=== PATIENT | male | born 1960 ===

== ENCOUNTER 2017-08-17 09:49 | Inpatient (IN) | payer MEDICAID ==
[2017-08-17 10:03] VITALS: BMI 22.6
[2017-08-17] MEDS ORDERED: Permethrin 5% CREAM TOP ONE (11:01)
--- NOTE | 2017-08-17 11:13 | ED PDOC ---
HPI: Seizure Time Seen by Provider: 08/17/17 10:06 Chief Complaint (Nursing): Seizure Chief Complaint (Provider): AMS, possible seizure History Per: Career Development Coordinator/Teacher (Darline #[id number]) History/Exam Limitations: clinical condition Recent Seizure Activity Began: Unknown Length Of Seizures (Duration): Unknown Post-ictal Period: Duration Unknown Additional Complaint(s): 56yo male per report EMS called by bystander for active seizure. When EMS arrived patient was awake and alert but confused. On arrival to ED, found to have insect infestation thus brought to [place]. When questioned via kettle fry cook operator remains confused, thinks may have had a seizure, but poor historian. Admits to history of HIV for last year, taking medications but unable to name his medications or his doctor. Denies headache, chest pain, fever or cough. Denies drug or alcohol abuse. Past Medical History Reviewed: Historical Data, Nursing Documentation, Vital Signs Vital Signs: Last Vital Signs Temp 98.2 F 08/20/17 08:25 Pulse 85 08/20/17 08:25 Resp 20 08/20/17 08:25 BP 106/68 08/20/17 08:25 Pulse Ox 94 L 08/20/17 08:25 - Medical History PMH: HIV Other PMH: limited as poor historian - Family History Family History: States: Unknown Family Hx - Living Arrangements Living Arrangements: Other (homeless) - Social History Current smoker - smoking cessation education provided: No - Home Medications Home Medications: Ambulatory Orders Medication Instructions Recorded Unobtainable 08/17/17 - Allergies Allergies/Adverse Reactions: Allergies Allergy/AdvReac Type Severity Reaction Status Date / Time No Known Allergies Allergy Verified 08/17/17 10:05 Review of Systems ROS Statement: Except As Marked, All Systems Reviewed And Found Negative Constitutional: Negative for: Fever, Chills Cardiovascular: Negative for: Chest Pain, Palpitations Gastrointestinal: Negative for: Nausea, Vomiting, Abdominal Pain Genitourinary Male: Negative for: Dysuria, Frequency Neurological: Positive for: Seizures, Dizziness. Negative for: Weakness, Numbness Physical Exam - Reviewed Nursing Documentation Reviewed: Yes Vital Signs Reviewed: Yes - Physical Exam Appears: Positive for: Non-toxic (speech fluent without dysarthria but confused and poor historian, no AOB, calm), No Acute Distress Head Exam: Positive for: ATRAUMATIC, NORMAL INSPECTION, NORMOCEPHALIC Skin: Positive for: Normal Color, Warm, DRY Eye Exam: Positive for: EOMI, Normal appearance, PERRL ENT: Positive for: Normal ENT Inspection, Other (neg thrush) Neck: Positive for: Normal, Painless ROM Cardiovascular/Chest: Positive for: Regular Rate, Rhythm Respiratory: Positive for: CNT, Normal Breath Sounds Gastrointestinal/Abdominal: Positive for: Bowel Sounds, Soft. Negative for: Tenderness, Guarding Male Genital Exam: Positive for: normal genitalia Back: Positive for: Normal Inspection Extremity: Positive for: Normal ROM. Negative for: Tenderness, Deformity, Swelling Neurologic/Psych: Positive for: Alert, log brander II-XII (no facial assymetry), Mood/ Affect (anxious and confused). Negative for: Oriented (confused), Motor/ Sensory Deficits, Aphasia, Facial Droop - Laboratory Results Result Diagrams: 08/19/17 05:50 08/19/17 05:50 Medical Decision Making Medical Decision Making: workup initiated for AMS in setting of possible seizure with admitted history of HIV. labs reviewed, etoh neg trop neg mild elev CK Urine drug screen neg CT brain Accession No. : [id number] Patient Name / ID : KATHRYN CASANOVA / [id number] Exam Date : 08/17/2017 12:27:55 ( Approved ) Study Comment : Sex / Age : M / 56Y Creator : Laila Arguelles MD Dictator : Laila Arguelles MD Filler Shredding Machine Loader : Residential Interior Designer : Laila Arguelles MD Approver2 : Report Date : 08/17/2017 12:58:21 My Comment : PROCEDURE: CT HEAD WITHOUT CONTRAST. HISTORY: hx HIV, now AMS COMPARISON: None available. TECHNIQUE: Axial computed tomography images were obtained through the head/brain without intravenous contrast. Radiation dose: Total exam DLP = 873.53 MGy-cm. This CT exam was performed using one or more of the following dose reduction techniques: Automated exposure control, adjustment of the mA and/or kV according to patient size, and/or use of iterative reconstruction technique. FINDINGS: HEMORRHAGE: No intracranial hemorrhage. BRAIN: Pitts-white matter differentiation is preserved. 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 There are numerous scattered calcifications in both cerebral hemispheres, the largest in the right anterior frontal low, sequela of remote infection. VENTRICLES: There is moderate hydrocephalus with dilatation of the lateral and 3rd ventricle. The 4th ventricle is normal in size. CALVARIUM: The skull base and calvarium are normal. PARANASAL SINUSES: Predominantly clear. MASTOID AIR CELLS: The mastoid air cells are underdeveloped. There is cerumen in the left external auditory canal. OTHER FINDINGS: None. IMPRESSION: 1. Moderate hydrocephalus with dilatation of the lateral and 3rd ventricles and normal size of the 4th ventricle. 2. Numerous scattered calcifications in both hemispheres, a sequela of remote infection. 3. 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 Patient re-evaluated 120pm via kettle fry cook operator #[id number], remains confused, initially thought he was in [place], then said "[place]", stated hasnt had a seizure in awhile then told kettle fry cook operator had a seizure 8days ago. Patient states memory has recently worsened and he desires to return to [place] to see his sister. States he lives in a building under construction and gets food at a local pen[facility]. He arrived with insect infestation, belongings have been isolated and unable to obtain medication list or further collateral history at this time. Admit Obs to hospitalist for neuro eval. Patient denies headache, he's afebrile without meningitic signs, given CT findings may require further testing. Disposition - Clinical Impression Clinical Impression: HIV (human immunodeficiency virus infection), Seizure, Altered mental status - Patient ED Disposition Is Patient to be Admitted: Yes Counseled Patient/Family Regarding: Studies Performed - Disposition Disposition Time: 13:01 (admit hospitalist) Condition: GUARDED
[2017-08-17 11:47] LABS: BASO # 0.1 K/uL (0.0-0.2); BASO % 1.5 % (0.0-2.0); EOS # 0.1 K/uL (0.0-0.7); EOS % 2.6 % (0.0-4.0); HEMATOCRIT 38.4 % (35.0-51.0); LYMPH # 1.3 K/uL (1.0-4.3); LYMPH % 32.3 % (20.0-40.0); MEAN CELL VOLUME 96.1 fl (80.0-94.0); MEAN CORPUSCULAR HEMOGLOBIN 32.2 pg (27.0-31.0); MEAN CORPUSCULAR HGB CONC 33.5 g/dL (33.0-37.0); MEAN PLATELET VOLUME 9.4 fl (7.2-11.7); MONO # 0.4 K/uL (0.0-0.8); MONO % 10.3 % (0.0-10.0); NEUT # 2.2 K/uL (1.8-7.0); NEUT % 53.3 % (50.0-75.0); NRBC % 0.2 % (0.0-0.0); RED CELL DISTRIBUTION WIDTH 12.2 % (11.5-14.5); WHITE BLOOD COUNT 4.1 K/uL (4.8-10.8)
[2017-08-17 11:48] LABS: ALB/GLOB RATIO 1.2 (1.0-2.1); ALCOHOL SERUM < 10 mg/dl (0-10); ALKALINE PHOSPHATASE 64 U/L (38-126); ALT/SGPT 46 U/L (21-72); AST/SGOT 49 U/L (17-59); BILIRUBIN,TOTAL 0.4 mg/dl (0.2-1.3); BLOOD UREA NITROGEN 12 mg/dl (9-20); CALCIUM 8.9 mg/dL (8.4-10.2); CARBON DIOXIDE 29 mmol/L (22-30); CHLORIDE 104 mmol/L (98-107); GFR AFRICAN-AMERICAN > 60; GLUCOSE,RANDOM 101 mg/dL (75-110); POTASSIUM 3.8 MMOL/L (3.6-5.0); SODIUM 143 mmol/l (132-148); TOTAL PROTEIN 7.3 G/DL (6.3-8.2)
--- NOTE | 2017-08-17 13:00 | CT ---
PROCEDURE: CT HEAD WITHOUT CONTRAST. HISTORY: hx HIV, now AMS COMPARISON: None available. TECHNIQUE: Axial computed tomography images were obtained through the head/brain without intravenous contrast. Radiation dose: Total exam DLP = 873.53 MGy-cm. This CT exam was performed using one or more of the following dose reduction techniques: Automated exposure control, adjustment of the mA and/or kV according to patient size, and/or use of iterative reconstruction technique. FINDINGS: HEMORRHAGE: No intracranial hemorrhage. BRAIN: Pitts-white matter differentiation is preserved. 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 There are numerous scattered calcifications in both cerebral hemispheres, the largest in the right anterior frontal low, sequela of remote infection. VENTRICLES: There is moderate hydrocephalus with dilatation of the lateral and 3rd ventricle. The 4th ventricle is normal in size. CALVARIUM: The skull base and calvarium are normal. PARANASAL SINUSES: Predominantly clear. MASTOID AIR CELLS: The mastoid air cells are underdeveloped. There is cerumen in the left external auditory canal. OTHER FINDINGS: None. IMPRESSION: 1. Moderate hydrocephalus with dilatation of the lateral and 3rd ventricles and normal size of the 4th ventricle. 2. Numerous scattered calcifications in both hemispheres, a sequela of remote infection. 3. 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
--- NOTE | 2017-08-17 13:59 | RAD ---
HISTORY: hx HIV COMPARISON: No prior. FINDINGS: LUNGS: The lungs are well inflated and clear. PLEURA: No significant pleural effusion identified, no pneumothorax apparent. CARDIOVASCULAR: Normal. OSSEOUS STRUCTURES: No significant abnormalities. VISUALIZED UPPER ABDOMEN: Normal. OTHER FINDINGS: None. IMPRESSION: No active pulmonary disease.
--- NOTE | 2017-08-17 14:55 | CP.PCM.HP ---
History of Present Illness - History of Present Illness History of Present Illness: This is a 56 year old male with past medical history of HIV for which he has been taking Triumeq up until about 3 months ago when he moved from the [facility] to [place], [place]. He states that he is homeless and has been unable to acquire his HIV medication and has been off it since his move. The patient is a poor historian otherwise and unable to give further information due to altered mental status. The patient was seen by a bystander to have a seizure and EMS was called and the patient was brought to the ED. There was no further witnessed seizure activity. In the ED, the patient's vitals remained stable. LDH and CPK was found to be elevated. CT scan of the brain showed evidence of hydrocephalus with extensive calcifications consitent with old infection. Dr. Osorio was consulted for neurology and Dr. Her was consulted for ID, given his history of HIV. The patient is to be admitted for further workup and management. Present on Admission - Present on Admission Any Indicators Present on Admission: No Review of Systems - Review of Systems Systems not reviewed;Unavailable: Altered Mental Status Past Patient History - Tetanus Immunizations Tetanus Immunization: Unknown - Past Social History Smoking Status: Unknown If Ever Smoked Drugs: Denies - HEMATOLOGICAL/ONCOLOGICAL Hx Human Immunodeficiency Virus (HIV): Yes - PSYCHIATRIC Hx Substance Use: No - SURGICAL HISTORY Hx Surgeries: No - ANESTHESIA Hx Anesthesia: No Meds Allergies/Adverse Reactions: Allergies Allergy/AdvReac Type Severity Reaction Status Date / Time No Known Allergies Allergy Verified 08/17/17 10:05 Physical Exam - Additional Findings Additional findings: Physical exam: Constitutional- Patient is unkempt, confused, although he is awake and alert. Cooperative. Head- NCAT, PERRL Eye- PERRL, normal accommodation ENT- normal exam, MMM. Neck- normal inspection, supple, no JVD Respiratory- CTAB, no wheezes rales rhonchi Cardiovascular- RRR, +S1, +S2 no MRG GI/Abdominal- normal bowel sounds, soft, no mass, no hsm Skin- warm, dry. Multiple insect bites Extremities Exam- normal capillary refill, normal inspection Neurological Exam- alert, stable gait Psych- flat affect, normal mood Results - Vital Signs Recent Vital Signs: Last Vital Signs Temp 97.7 F 08/17/17 10:36 Pulse Resp BP 123/73 08/17/17 10:36 Pulse Ox - Labs Result Diagrams: 08/17/17 11:30 08/17/17 11:30 Labs: Laboratory Results - last 24 hr 08/17/17 08/17/17 08/17/17 11:30 11:30 11:30 WBC 4.1 L RBC 3.99 L Hgb 12.9 Hct 38.4 MCV 96.1 H MCH 32.2 H MCHC 33.5 RDW 12.2 Plt Count 135 MPV 9.4 Neut % (Auto) 53.3 Lymph % (Auto) 32.3 [place] % (Auto) 10.3 H Eos % (Auto) 2.6 Baso % (Auto) 1.5 Neut # 2.2 Lymph # 1.3 [place] # 0.4 Eos # 0.1 Baso # 0.1 Sodium 143 Potassium 3.8 Chloride 104 Carbon Dioxide 29 Anion Gap 13 BUN 12 Creatinine 0.9 Est GFR ( Amer) > 60 Est GFR (Non-Af Amer) > 60 Random Glucose 101 Calcium 8.9 Total Bilirubin 0.4 AST 49 ALT 46 Alkaline Phosphatase 64 Lactate Dehydrogenase 843 H Total Creatine Kinase 204 H Troponin I < 0.0120 Total Protein 7.3 Albumin 3.9 Globulin 3.4 Albumin/Globulin Ratio 1.2 Urine Opiates Screen Negative Urine Methadone Screen Negative Ur Barbiturates Screen Negative Ur Phencyclidine Scrn Negative Ur Amphetamines Screen Negative U Benzodiazepines Scrn Negative U Oth Cocaine Metabols Negative U Cannabinoids Screen Negative Alcohol, Quantitative < 10 Assessment & Plan - Assessment and Plan (Free Text) Plan: ASSESSMENT - Seizure activity with known history of HIV - Altered mental status- likely post ictal - Evidence of hydrocephalus on CT scan - Homeless - Elevated LDH and CPK likely due to seizure activity PLAN - Admit to med/surg - Consultation with Dr. Osorio- recommends MRI w/ and w/out contrast of the brain , EEG, Procalcitonin, other labs pending - Consultation with Dr. Her for HIV workup - CD4 and CD8 count pending - Seizure precautions - Keppra 500 mg po BID for seizure prophylaxis as per neurology - DVT prophylaxis with Heparin SQ - regular diet - Estimated LOS > 2 midnights
[2017-08-17] MEDS: Sodium Chloride 0.9% 1,000 ML IV SCH (15:26)
--- NOTE | 2017-08-17 16:32 | CARD ---
APPROVED REPORT EKG Measurement Heart [id number] <Conclusion> Normal sinus rhythm Normal ECG
[2017-08-18] MEDS: Sodium Chloride 0.9% 1,000 ML IV SCH ×3 (04:09→19:25)
[2017-08-18 05:20] LABS: BLOOD UREA NITROGEN 10 mg/dl (9-20); CALCIUM 8.2 mg/dL (8.4-10.2); CARBON DIOXIDE 27 mmol/L (22-30); CHLORIDE 108 mmol/L (98-107); GFR AFRICAN-AMERICAN > 60; GLUCOSE,RANDOM 95 mg/dL (75-110); HEMATOCRIT 35.4 % (35.0-51.0); MEAN CORPUSCULAR HEMOGLOBIN 31.9 pg (27.0-31.0); MEAN CORPUSCULAR HGB CONC 33.3 g/dL (33.0-37.0); POTASSIUM 3.4 MMOL/L (3.6-5.0); RED CELL DISTRIBUTION WIDTH 12.6 % (11.5-14.5); SODIUM 142 mmol/l (132-148); WHITE BLOOD COUNT 3.7 K/uL (4.8-10.8)
[2017-08-18 05:27] LABS: MAGNESIUM 1.9 MG/DL (1.6-2.3); PHOSPHOROUS 2.6 mg/dl (2.5-4.5)
--- NOTE | 2017-08-18 10:08 | CP.PCM.CON ---
History of Present Illness - History of Present Illness History of Present Illness: Infectious Disease Consult Note- asked to see this patient at the request of the hospitalist for HIV and calcifications seen on brain CT. HPI- History obtained mostly from the medical chart and the hospitalist and some from the patient as patient is not a good historian. Patient is a 56 year old male with pmh of HIV , who was apparently seen by a bystander to have seizure and ems was called and [place] to ED here. There was no further witnessed seizure activity here. Pt. had brain CT on admission and was read as hydrocephalus with extensive calcifications c/w ? old infection. Pt. states as on Triumeq up until a month ago when he moved her to [place] , he as living in [place] prior to that . He does not know his last CD4 or VL count. He states he thinks he has had seizures in past as well. He states he has been living in for past 10 years but is originally from [facility]. He denies any h/o parasitic infection. Denies any h/o exposure to TB. He denies any fever or chills, denies any BARRETO, denies any change in vision. Review of Systems - Review of Systems Review of Systems: ROS- denies any fever or chills, denies any BARRETO, denies any vision change, does not remember the seizure activity, denies any nausea or vomiting, denies any cough or sob, denies anyc hest pain, denies any abd. pain, denies any dysurea, denies any diarrhea denies any night sweats, denies any hemoptysis denies any neck pain denies any recent travel other than coming from [place] to [place] Past Patient History - Tetanus Immunizations Tetanus Immunization: Unknown - Past Medical History & Family History Past Medical History?: Yes - Past Social History Smoking Status: Unknown If Ever Smoked Home Situation {Lives}: Homeless - CARDIAC Hx Cardiac Disorders: No - PULMONARY Hx Respiratory Disorders: No - HEENT Hx HEENT Problems: No - RENAL Hx Chronic Kidney Disease: No - ENDOCRINE/METABOLIC Hx Endocrine Disorders: No - HEMATOLOGICAL/ONCOLOGICAL Hx Blood Disorders: Yes Hx Human Immunodeficiency Virus (HIV): Yes - MUSCULOSKELETAL/RHEUMATOLOGICAL Hx Falls: Yes - PSYCHIATRIC Hx Substance Use: No - SURGICAL HISTORY Hx Surgeries: No - ANESTHESIA Hx Anesthesia: No Meds Allergies/Adverse Reactions: Allergies Allergy/AdvReac Type Severity Reaction Status Date / Time No Known Allergies Allergy Verified 08/17/17 10:05 - Medications Medications: Current Medications Acetaminophen (Tylenol 325mg Tab) 650 mg PO Q6 PRN PRN Reason: Pain, Mild (1-3) Heparin Sodium (Porcine) (Heparin) 5,000 units SC Q12 MOR PRN Reason: Protocol Last Admin: 08/17/17 21:48 Dose: 5,000 units Sodium Chloride (Sodium Chloride 0.9%) 1,000 mls @ 100 mls/hr IV .Q10H [facility] Last Admin: 08/18/17 04:09 Dose: 100 mls/hr Levetiracetam (Keppra) 500 mg PO BID [facility] Last Admin: 08/17/17 17:46 Dose: 500 mg Physical Exam - Constitutional Appears: No Acute Distress - Head Exam Head Exam: ATRAUMATIC - Eye Exam Eye Exam: EOMI, PERRL - Neck Exam Neck exam: Positive for: Full Rom Additional comments: supple no meningeal signs - Respiratory Exam Respiratory Exam: Clear to Auscultation Bilateral, NORMAL BREATHING PATTERN - Cardiovascular Exam Cardiovascular Exam: RRR, +S1, +S2 - GI/Abdominal Exam GI & Abdominal Exam: Normal Bowel Sounds, Soft Additional comments: NT, ND - Extremities Exam Extremities exam: Positive for: normal inspection - Neurological Exam Additional comments: awake slightly drowsy but is oriented to place and time Results - Vital Signs Recent Vital Signs: Last Vital Signs Temp 98.1 F 08/18/17 08:46 Pulse 90 08/18/17 08:46 Resp 20 08/18/17 08:46 BP 116/71 08/18/17 08:46 Pulse Ox 96 08/18/17 08:46 - Labs Result Diagrams: 08/18/17 04:05 08/18/17 04:05 Labs: Laboratory Results - last 24 hr 08/17/17 08/17/17 08/17/17 11:30 11:30 11:30 WBC 4.1 L RBC 3.99 L Hgb 12.9 Hct 38.4 MCV 96.1 H MCH 32.2 H MCHC 33.5 RDW 12.2 Plt Count 135 MPV 9.4 Neut % (Auto) 53.3 Lymph % (Auto) 32.3 [place] % (Auto) 10.3 H Eos % (Auto) 2.6 Baso % (Auto) 1.5 Neut # 2.2 Lymph # 1.3 [place] # 0.4 Eos # 0.1 Baso # 0.1 Sodium 143 Potassium 3.8 Chloride 104 Carbon Dioxide 29 Anion Gap 13 BUN 12 Creatinine 0.9 Est GFR ( Amer) > 60 Est GFR (Non-Af Amer) > 60 Random Glucose 101 Calcium 8.9 Phosphorus 2.6 Magnesium 1.9 Total Bilirubin 0.4 AST 49 ALT 46 Alkaline Phosphatase 64 Lactate Dehydrogenase 843 H Total Creatine Kinase 204 H Troponin I < 0.0120 Total Protein 7.3 Albumin 3.9 Globulin 3.4 Albumin/Globulin Ratio 1.2 Urine Opiates Screen Negative Urine Methadone Screen Negative Ur Barbiturates Screen Negative Ur Phencyclidine Scrn Negative Ur Amphetamines Screen Negative U Benzodiazepines Scrn Negative U Oth Cocaine Metabols Negative U Cannabinoids Screen Negative Alcohol, Quantitative < 10 HIV-1 Ab Rapid Screen 08/17/17 08/18/17 08/18/17 16:29 04:05 04:05 WBC 3.7 L RBC 3.69 L Hgb 11.8 L Hct 35.4 MCV 96.0 H MCH 31.9 H MCHC 33.3 RDW 12.6 Plt Count 131 MPV Neut % (Auto) Lymph % (Auto) [place] % (Auto) Eos % (Auto) Baso % (Auto) Neut # Lymph # [place] # Eos # Baso # Sodium 142 Potassium 3.4 L Chloride 108 H Carbon Dioxide 27 Anion Gap 10 BUN 10 Creatinine 1.0 Est GFR ( Amer) > 60 Est GFR (Non-Af Amer) > 60 Random Glucose 95 Calcium 8.2 L Phosphorus Magnesium Total Bilirubin AST ALT Alkaline Phosphatase Lactate Dehydrogenase Total Creatine Kinase Troponin I Total Protein Albumin Globulin Albumin/Globulin Ratio Urine Opiates Screen Urine Methadone Screen Ur Barbiturates Screen Ur Phencyclidine Scrn Ur Amphetamines Screen U Benzodiazepines Scrn U Oth Cocaine Metabols U Cannabinoids Screen Alcohol, Quantitative HIV-1 Ab Rapid Screen Reactive H Laboratory Results - last 72 hr 08/17/17 08/17/17 08/17/17 11:30 11:30 11:30 WBC 4.1 L RBC 3.99 L Hgb 12.9 Hct 38.4 MCV 96.1 H MCH 32.2 H MCHC 33.5 RDW 12.2 Plt Count 135 MPV 9.4 Neut % (Auto) 53.3 Lymph % (Auto) 32.3 [place] % (Auto) 10.3 H Eos % (Auto) 2.6 Baso % (Auto) 1.5 Neut # 2.2 Lymph # 1.3 [place] # 0.4 Eos # 0.1 Baso # 0.1 Sodium 143 Potassium 3.8 Chloride 104 Carbon Dioxide 29 Anion Gap 13 BUN 12 Creatinine 0.9 Est GFR ( Amer) > 60 Est GFR (Non-Af Amer) > 60 Random Glucose 101 Calcium 8.9 Phosphorus 2.6 Magnesium 1.9 Total Bilirubin 0.4 AST 49 ALT 46 Alkaline Phosphatase 64 Lactate Dehydrogenase 843 H Total Creatine Kinase 204 H Troponin I < 0.0120 Total Protein 7.3 Albumin 3.9 Globulin 3.4 Albumin/Globulin Ratio 1.2 Urine Opiates Screen Negative Urine Methadone Screen Negative Ur Barbiturates Screen Negative Ur Phencyclidine Scrn Negative Ur Amphetamines Screen Negative U Benzodiazepines Scrn Negative U Oth Cocaine Metabols Negative U Cannabinoids Screen Negative Alcohol, Quantitative < 10 HIV-1 Ab Rapid Screen 08/17/17 08/18/17 08/18/17 16:29 04:05 04:05 WBC 3.7 L RBC 3.69 L Hgb 11.8 L Hct 35.4 MCV 96.0 H MCH 31.9 H MCHC 33.3 RDW 12.6 Plt Count 131 MPV Neut % (Auto) Lymph % (Auto) [place] % (Auto) Eos % (Auto) Baso % (Auto) Neut # Lymph # [place] # Eos # Baso # Sodium 142 Potassium 3.4 L Chloride 108 H Carbon Dioxide 27 Anion Gap 10 BUN 10 Creatinine 1.0 Est GFR ( Amer) > 60 Est GFR (Non-Af Amer) > 60 Random Glucose 95 Calcium 8.2 L Phosphorus Magnesium Total Bilirubin AST ALT Alkaline Phosphatase Lactate Dehydrogenase Total Creatine Kinase Troponin I Total Protein Albumin Globulin Albumin/Globulin Ratio Urine Opiates Screen Urine Methadone Screen Ur Barbiturates Screen Ur Phencyclidine Scrn Ur Amphetamines Screen U Benzodiazepines Scrn U Oth Cocaine Metabols U Cannabinoids Screen Alcohol, Quantitative HIV-1 Ab Rapid Screen Reactive H Accession No. : [id number] Patient Name / ID : KATHRYN CASANOVA / [id number] Exam Date : 08/17/2017 12:27:55 ( Approved ) Study Comment : Sex / Age : M / 56Y Creator : Laila Arguelles MD Dictator : Laila Arguelles MD Web Production Artist : Funeral Service Practitioner/Embalmer : Laila Arguelles MD Approver2 : Report Date : 08/17/2017 12:58:21 My Comment : PROCEDURE: CT HEAD WITHOUT CONTRAST. HISTORY: hx HIV, now AMS COMPARISON: None available. TECHNIQUE: Axial computed tomography images were obtained through the head/brain without intravenous contrast. Radiation dose: Total exam DLP = 873.53 MGy-cm. This CT exam was performed using one or more of the following dose reduction techniques: Automated exposure control, adjustment of the mA and/or kV according to patient size, and/or use of iterative reconstruction technique. FINDINGS: HEMORRHAGE: No intracranial hemorrhage. BRAIN: Pitts-white matter differentiation is preserved. 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 There are numerous scattered calcifications in both cerebral hemispheres, the largest in the right anterior frontal low, sequela of remote infection. VENTRICLES: There is moderate hydrocephalus with dilatation of the lateral and 3rd ventricle. The 4th ventricle is normal in size. CALVARIUM: The skull base and calvarium are normal. PARANASAL SINUSES: Predominantly clear. MASTOID AIR CELLS: The mastoid air cells are underdeveloped. There is cerumen in the left external auditory canal. OTHER FINDINGS: None. IMPRESSION: 1. Moderate hydrocephalus with dilatation of the lateral and 3rd ventricles and normal size of the 4th ventricle. 2. Numerous scattered calcifications in both hemispheres, a sequela of remote infection. 3. 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 Assessment & Plan (1) HIV (human immunodeficiency virus infection) Status: Acute (2) Seizure Status: Acute (3) Brain parenchymal calcification Status: Acute - Assessment and Plan (Free Text) Assessment: A/P- 56 year old male with HIV (unknown cd4 and VL) admitted with ? seizure like activity and found to have on brain CT- hydrocephalus and multiple remote calcifications scattered adn as per radiologist most likely sequela of remote infection. pt. currently afebrile and in NAD. no leukocytosis. no meningeal signs the scattered calcifications in brain most likely are old. in light of the fact [place] Neurocysticercosis is a possibility, however, if the lesions are old and calcified no need froa ny antiparasitic therpay and should be on antiseizure meds to control the seizure activity. plan- check HIV Vl and CD4. check Tenia solium serology. check toxo IGG ( although the lesions are not c/w toxo brain lesions). check CMV. check RPR. Neurology evaluation and seizure management . he may need MRI of the brain as well. Thank you fro allowing me to take part in the care of this patient.
[2017-08-18] MEDS ORDERED: Potassium Chloride 20 mEq ER Tab PO ONE (11:52)
--- NOTE | 2017-08-18 14:16 | CP.PCM.PN ---
Subjective - Date & Time of Evaluation Date of Evaluation: 08/18/17 Time of Evaluation: 13:00 - Subjective Subjective: Pt has no fever he is now alert , oriented to person and place no further seizure in the hospital he gives a history of previous seizure he states that he was taking HAART up until he came to [place] from [place] a few wks ago denies CP no SOB no BARRETO no dizziness no abd pain soft stool this am Was treated for Scabies with Permethrin in the ED Objective - Vital Signs/Intake and Output Vital Signs (last 24 hours): Temp Pulse Resp BP Pulse Ox 98.1 F 90 20 116/71 96 08/18/17 08:46 08/18/17 08:46 08/18/17 08:46 08/18/17 08:46 08/18/17 08:46 - Medications Medications: Current Medications Acetaminophen (Tylenol 325mg Tab) 650 mg PO Q6 PRN PRN Reason: Pain, Mild (1-3) Heparin Sodium (Porcine) (Heparin) 5,000 units SC Q12 MOR PRN Reason: Protocol Last Admin: 08/18/17 10:34 Dose: 5,000 units Sodium Chloride (Sodium Chloride 0.9%) 1,000 mls @ 100 mls/hr IV .Q10H [facility] Last Admin: 08/18/17 10:51 Dose: Not Given Levetiracetam (Keppra) 500 mg PO BID [facility] Last Admin: 08/18/17 10:34 Dose: 500 mg - Labs Labs: 08/18/17 04:05 08/18/17 04:05 - Constitutional Appears: No Acute Distress, Unkempt, Chronically Ill - Head Exam Head Exam: NORMAL INSPECTION, NORMOCEPHALIC - Eye Exam Eye Exam: EOMI, Normal appearance Pupil Exam: NORMAL ACCOMODATION - ENT Exam ENT Exam: Mucous Membranes Moist, Normal External Ear Exam - Neck Exam Neck Exam: Full ROM. absent: Meningismus - Respiratory Exam Respiratory Exam: Rhonchi, NORMAL BREATHING PATTERN. absent: Respiratory Distress - Cardiovascular Exam Cardiovascular Exam: REGULAR RHYTHM, +S1, +S2 - GI/Abdominal Exam GI & Abdominal Exam: Soft, Normal Bowel Sounds. absent: Tenderness - Extremities Exam Extremities Exam: Full ROM, Normal Capillary Refill. absent: Calf Tenderness, Pedal Edema - Back Exam Back Exam: Full ROM. absent: CVA tenderness (L), CVA tenderness (R), paraspinal tenderness, vertebral tenderness - Neurological Exam Neurological Exam: Alert, Awake Neuro motor strength exam: Left Upper Extremity: 5, Right Upper Extremity: 5, Left Lower Extremity: 5, Right Lower Extremity: 5 Additional comments: oriented to person and place - Psychiatric Exam Psychiatric exam: Flat Affect - Skin Skin Exam: Dry, Normal Color, Rash, Warm Assessment and Plan (1) Seizure Status: Acute (2) Hydrocephalus Status: Acute (3) Brain parenchymal calcification Status: Acute (4) HIV (human immunodeficiency virus infection) Status: Chronic (5) Scabies Status: Acute (6) DVT prophylaxis Status: Acute - Assessment and Plan (Free Text) Assessment: 56 y/o gent HIV + , was on HAART up until about a few wks ago when moved from [place] to [place], was brought in by EMS after he was witnessed to have a seizure. Denies ETOH nor drug abuse. Homeless at present. (1) Seizure Status: Acute CT of head Hydrcephalus, multiple calcifications Neurology consulted- Dr Osorio- rec MRI Pt started on [facility] MRI of [place] ID consulted T solium , Toxo, Crypto, CMV, Cysticercus Ig RPR (2) Hydrocephalus Status: Acute as above MRI , need to r/o [employer] infection agustin Neurocysticercosis (3) Brain parenchymal calcification Status: Acute as above (4) HIV (human immunodeficiency virus infection) Status: Chronic check CD$ ct and Viral load ID consult [facility] (5) Scabies Status: Acute treated with Permethrin in ED (6) DVT prophylaxis Status: Acute Heparin
[2017-08-18] MEDS ORDERED: Gadodiamide 287 MG/ML VIAL (15ML) IV ONE (15:46)
--- NOTE | 2017-08-19 04:27 | CON ---
CONSULT DATE: REASON FOR THE CONSULTATION: Change in mental status with witnessed seizures. Patient was brought into by EMS with a history of seizures being documented by the bystanders and brought into the [facility] for further evaluation. From neurological point of view, I was called in to evaluate him for further management. HISTORY OF PRESENTING ILLNESS: Mr. Rachid Mejía is a 56-year-old right-handed male who moved in from [place] to [place]. He became a homeless. Unable to acquire any medical history as well as medication history because of the poor mental status. He was brought into [facility] with a history of witnessed seizure activities by a bystander. When he was brought in, he was a little bit confused; however, he was moving all 4 extremities and speech was intact at the time he was brought into the emergency room. His blood workup was abnormal. PAST MEDICAL HISTORY: Seizures as well as HIV disease. PERSONAL HISTORY: No history of smoking or alcohol use. ALLERGIES: NO KNOWN ALLERGIES. REVIEW OF SYSTEMS: As per H and P. MEDICATION: Keppra was given following seizure activities by history as well as abnormal CAT scan. PHYSICAL EXAMINATION: VITAL SIGNS: Blood pressure 116/68, mean arterial pressure of 84, respiratory rate 16, temperature afebrile. NECK: Supple. No carotid bruits. HEART: Sounds regular. CHEST: Fair air entry. EXTREMITIES: No edema in legs. SKIN: Showed papular rash allover the face and the scalp. NEUROLOGICAL EXAMINATION: MENTAL STATUS EXAMINATION: His speech is clear, communicable. He is communicable only in [place]. He moves all 4 extremities. He is eating by himself. CRANIAL NERVE EXAMINATION: Responds to visual threat. Pupils are reactive to light. Extraocular movement normal, no nystagmus, no facial sensory deficits, no fascial asymmetry. Hearing is normal. Tongue is in midline, good gag. MOTOR EXAMINATION: Outstretched hand with eyes closed, no drift noted. He moves all 4 extremities against the gravity. Deep tendon reflexes are trace. Plantars are mute. SENSORY EXAMINATION: Grossly intact. No cortical sensory loss. DIAGNOSTIC AND LABORATORY DATA: Patient's workup: CT of the head is reviewed, showed multiple calcified lesion seen throughout the cortex. Patient also showed evidence of atrophy with hydrocephalus. Blood workup: WBC 3.7, hemoglobin 11.8, hematocrit 35.4, platelet 131. Sodium 142, potassium 3.4, chloride 108, bicarbonate 27, BUN 10, GFR more than 60, calcium 8.2. Urine tox screen negative, crypt antigen negative. HIV reactive. CONCLUSION: Mr. Rachid Mejía has been presenting with witnessed seizure activities with abnormal CAT scan. Considering his risk factors of HIV, patient should be placed on antiepileptic drugs for now until the workup is completed. If workup is consistent with seizures, patient should continue the Keppra for now. Patient is scheduled to have MRI of the brain and scheduled to have an electroencephalogram. ID consult also recommended to address his proper medication for his underlying HIV. Dario Osorio MD
[2017-08-19] MEDS: Sodium Chloride 0.9% 1,000 ML IV SCH (06:30)
[2017-08-19 06:51] LABS: BASO % 0.2 % (0.0-2.0); EOS # 0.1 K/uL (0.0-0.7); EOS % 3.2 % (0.0-4.0); HEMATOCRIT 36.2 % (35.0-51.0); LYMPH # 1.7 K/uL (1.0-4.3); LYMPH % 38.7 % (20.0-40.0); MEAN CELL VOLUME 96.1 fl (80.0-94.0); MEAN CORPUSCULAR HEMOGLOBIN 32.1 pg (27.0-31.0); MEAN CORPUSCULAR HGB CONC 33.4 g/dL (33.0-37.0); MEAN PLATELET VOLUME 9.7 fl (7.2-11.7); MONO # 0.5 K/uL (0.0-0.8); MONO % 11.8 % (0.0-10.0); NEUT % 46.1 % (50.0-75.0); NRBC % 0.1 % (0.0-0.0); RED CELL DISTRIBUTION WIDTH 12.3 % (11.5-14.5); WHITE BLOOD COUNT 4.3 K/uL (4.8-10.8)
[2017-08-19 07:19] LABS: ALB/GLOB RATIO 1.1 (1.0-2.1); ALKALINE PHOSPHATASE 60 U/L (38-126); ALT/SGPT 42 U/L (21-72); AST/SGOT 36 U/L (17-59); BILIRUBIN,TOTAL 0.4 mg/dl (0.2-1.3); BLOOD UREA NITROGEN 16 mg/dl (9-20); CALCIUM 8.3 mg/dL (8.4-10.2); CARBON DIOXIDE 28 mmol/L (22-30); CHLORIDE 106 mmol/L (98-107); GFR AFRICAN-AMERICAN > 60; GLUCOSE,RANDOM 97 mg/dL (75-110); POTASSIUM 3.9 MMOL/L (3.6-5.0); SODIUM 139 mmol/l (132-148); TOTAL PROTEIN 6.5 G/DL (6.3-8.2)
[2017-08-19] MEDS ORDERED: Gadodiamide 287 MG/ML VIAL (15ML) IV ONE (10:25)
--- NOTE | 2017-08-19 12:02 | MRI ---
PROCEDURE: MRI BRAIN WITH AND WITHOUT CONTRAST HISTORY: seizure activity COMPARISON: 08/17/2017 CT scan. TECHNIQUE: Multiplanar, multisequence MR images of the brain were obtained with and without intravenous contrast enhancement. FINDINGS: HEMORRHAGE: None DWI: No evidence of an acute or early subacute infarction. BRAIN PARENCHYMA: No mass,mass effect or edema. Re-demonstration moderate hydrocephalus with significant dilatation lateral ventricles as well as the 3rd ventricle. Associated periventricular white matter signal abnormality. 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 Scattered calcifications are observed most prominently in the right posterior parietal lobe measuring roughly 1 centimeter. ENHANCEMENT: No abnormal intracranial enhancement. VENTRICLES: Unremarkable. No hydrocephalus. CRANIUM: Unremarkable. ORBITS: Grossly unremarkable. PARANASAL SINUSES/MASTOIDS: Clear VASCULAR SYSTEM: Skull base flow voids intact. OTHER FINDINGS: None . IMPRESSION: Re-demonstration moderate hydrocephalus with significant dilatation lateral ventricles as well as the 3rd ventricle. Associated periventricular white matter signal abnormality. 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 Scattered calcifications are observed most prominently in the right posterior parietal lobe measuring roughly 1 centimeter suggesting prior infection.
--- NOTE | 2017-08-19 13:44 | CP.PCM.PN ---
Subjective - Date & Time of Evaluation Date of Evaluation: 08/19/17 Time of Evaluation: 13:00 - Subjective Subjective: Patient was seen and examined at bedside. Continues to have no further seizures in the hospital. Denies any chest pain, sob, headache, weakness, dizziness. No other c/o. No acute events as per nursing staff. Seizure and HIV workup ongoing. Objective - Vital Signs/Intake and Output Vital Signs (last 24 hours): Temp Pulse Resp BP Pulse Ox 99.1 F 95 H 20 116/75 95 08/19/17 01:18 08/19/17 01:18 08/19/17 01:18 08/19/17 01:18 08/19/17 01:18 - Medications Medications: Current Medications Acetaminophen (Tylenol 325mg Tab) 650 mg PO Q6 PRN PRN Reason: Pain, Mild (1-3) Heparin Sodium (Porcine) (Heparin) 5,000 units SC Q12 MOR PRN Reason: Protocol Last Admin: 08/19/17 09:11 Dose: 5,000 units Levetiracetam (Keppra) 500 mg PO BID [facility] Last Admin: 08/19/17 09:11 Dose: 500 mg - Labs Labs: 08/19/17 05:50 08/19/17 05:50 - Additional Findings Additional findings: Physical exam: Constitutional- cooperative, awake, alert. Head- NCAT, PERRL Eye- PERRL, normal accommodation ENT- normal exam, MMM. Neck- normal inspection, supple, no JVD Respiratory- CTAB, no wheezes rales rhonchi Cardiovascular- RRR, +S1, +S2 no MRG GI/Abdominal- normal bowel sounds, soft, no mass, no hsm Skin- warm, dry Extremities Exam- normal capillary refill, normal inspection Neurological Exam- alert, stable gait Psych- normal mood, normal affect Assessment and Plan - Assessment and Plan (Free Text) Plan: This is a 56 year old male with + HIV, was on HAART up until about 3 weeks ago when moved from [place] to [place], was brought in by EMS after he was witnessed to have a seizure. Denies ETOH nor drug abuse. Homeless at present. (1) Seizure Status: Acute CT of head Hydrcephalus, multiple calcifications suggestive of old infection Neurology consulted- Dr Osorio- EEG MRI shows calcifications, moderate hydrocephalus Continue Keppra as per neurology ID consulted T solium , Toxo, CMV, Cysticercus Ig- pending Cryptococcus Ag negative RPR nonreactive (2) Hydrocephalus Status: Acute as above (3) Brain parenchymal calcification Status: Acute as above (4) HIV (human immunodeficiency virus infection) Status: Chronic Rapid HIV screen + Absolute CD4 count = 128 Absolute CD8 count = 809 ID consult [facility] (5) Scabies Status: Acute treated with Permethrin in ED (6) DVT prophylaxis Status: Acute Heparin
[2017-08-19 20:15] LABS: CYTOMEGALOVIRUS AB (IGM) <30.00 AU/mL
[2017-08-19 20:15] LABS: TOXOPLASMA IGM AB <8.00 AU/mL
--- NOTE | 2017-08-20 06:30 | CP.PCM.PN ---
Subjective - Date & Time of Evaluation Date of Evaluation: 08/20/17 Time of Evaluation: 06:29 - Subjective Subjective: Mri reviewed No further work up is needed from neuro continue keppra Objective - Vital Signs/Intake and Output Vital Signs (last 24 hours): Temp Pulse Resp BP Pulse Ox 98 F 88 19 94/61 L 96 08/20/17 00:11 08/20/17 00:11 08/20/17 00:11 08/20/17 00:11 08/20/17 00:11 - Medications Medications: Current Medications Acetaminophen (Tylenol 325mg Tab) 650 mg PO Q6 PRN PRN Reason: Pain, Mild (1-3) Last Admin: 08/19/17 22:26 Dose: 650 mg Heparin Sodium (Porcine) (Heparin) 5,000 units SC Q12 MOR PRN Reason: Protocol Last Admin: 08/19/17 20:30 Dose: 5,000 units Levetiracetam (Keppra) 500 mg PO BID [facility] Last Admin: 08/19/17 16:34 Dose: 500 mg - Labs Labs: 08/19/17 05:50 08/19/17 05:50
[2017-08-20 08:26] VITALS: BP 106/68; PULSE 85; RESP 20; TEMP 98.2; O2SAT 94
--- NOTE | 2017-08-20 08:28 | EEG ---
CONDITION OF THE RECORDING: The record was obtained for history of altered mental status, seizure activity and the record was obtained while the patient was awake and drowsy. The record was symmetrically equal on both sides, fairly organized, with a posterior distribution, and showed attenuation with light. There are no abnormal discharges. No spike. No polyspike. No sharp waves. No focal slowing or paroxysmal discharge. The record does not show any changes with photic stimulation. The hyperventilation was omitted. There were periods of drowsiness, during which attenuation and slowing of the record were seen and theta waves are seen. There are no periods of sleep. There were eye movement artifact, electrode artifact and muscle movement artifacts. In sum, this is a normal, awake and drowsy EEG. Clinical correlation is recommended. Jade Kendall MD [facility]
--- NOTE | 2017-08-20 14:04 | CP.PCM.DIS ---
Provider - Provider Date of Admission: 08/17/17 14:41 Attending physician: Kalpesh De Jesus DO Primary care physician: None Consults: Neuro consult ID consult SW consult Time Spent in preparation of Discharge (in minutes): 20 Hospital Course - Lab Results Lab Results: Micro Results 08/18/17 09:35 Blood Blood Culture - Preliminary NO GROWTH AFTER 48 HOURS 08/18/17 09:15 Blood Blood Culture - Preliminary NO GROWTH AFTER 48 HOURS Most Recent Lab Values WBC 4.3 K/uL (4.8-10.8) L 08/19/17 05:50 RBC 3.76 Mil/uL (4.40-5.90) L 08/19/17 05:50 Hgb 12.1 g/dL (12.0-18.0) 08/19/17 05:50 Hct 36.2 % (35.0-51.0) 08/19/17 05:50 MCV 96.1 fl (80.0-94.0) H 08/19/17 05:50 MCH 32.1 pg (27.0-31.0) H 08/19/17 05:50 MCHC 33.4 g/dL (33.0-37.0) 08/19/17 05:50 RDW 12.3 % (11.5-14.5) 08/19/17 05:50 Plt Count 124 K/uL (130-400) L 08/19/17 05:50 MPV 9.7 fl (7.2-11.7) 08/19/17 05:50 Neut % (Auto) 46.1 % (50.0-75.0) L 08/19/17 05:50 Lymph % (Auto) 38.7 % (20.0-40.0) 08/19/17 05:50 [place] % (Auto) 11.8 % (0.0-10.0) H 08/19/17 05:50 Eos % (Auto) 3.2 % (0.0-4.0) 08/19/17 05:50 Baso % (Auto) 0.2 % (0.0-2.0) 08/19/17 05:50 Neut # 2.0 K/uL (1.8-7.0) 08/19/17 05:50 Lymph # 1.7 K/uL (1.0-4.3) 08/19/17 05:50 [place] # 0.5 K/uL (0.0-0.8) 08/19/17 05:50 Eos # 0.1 K/uL (0.0-0.7) 08/19/17 05:50 Baso # 0.0 K/uL (0.0-0.2) 08/19/17 05:50 Sodium 139 mmol/l (132-148) 08/19/17 05:50 Potassium 3.9 MMOL/L (3.6-5.0) 08/19/17 05:50 Chloride 106 mmol/L (98-107) 08/19/17 05:50 Carbon Dioxide 28 mmol/L (22-30) 08/19/17 05:50 Anion Gap 9 (10-20) L 08/19/17 05:50 BUN 16 mg/dl (9-20) 08/19/17 05:50 Creatinine 1.0 mg/dL (0.8-1.5) 08/19/17 05:50 Est GFR ( Amer) > 60 08/19/17 05:50 Est GFR (Non-Af Amer) > 60 08/19/17 05:50 Random Glucose 97 mg/dL (75-110) 08/19/17 05:50 Calcium 8.3 mg/dL (8.4-10.2) L 08/19/17 05:50 Ionized Calcium 5.1 mg/dL (4.80-5.60) 08/17/17 16:29 Phosphorus 2.6 mg/dl (2.5-4.5) 08/17/17 11:30 Magnesium 1.9 MG/DL (1.6-2.3) 08/17/17 11:30 Total Bilirubin 0.4 mg/dl (0.2-1.3) 08/19/17 05:50 AST 36 U/L (17-59) 08/19/17 05:50 ALT 42 U/L (21-72) 08/19/17 05:50 Alkaline Phosphatase 60 U/L (38-126) 08/19/17 05:50 Lactate Dehydrogenase 843 U/L (313-618) H 08/17/17 11:30 Total Creatine Kinase 204 U/L (55-170) H 08/17/17 11:30 Troponin I < 0.0120 ng/mL (0.00-0.120) 08/17/17 11:30 Total Protein 6.5 G/DL (6.3-8.2) 08/19/17 05:50 Albumin 3.4 g/dL (3.5-5.0) L 08/19/17 05:50 Globulin 3.2 gm/dL (2.2-3.9) 08/19/17 05:50 Albumin/Globulin Ratio 1.1 (1.0-2.1) 08/19/17 05:50 Prolactin 21.2 ng/mL (3.7-17.9) H 08/17/17 11:30 Urine Opiates Screen Negative (NEGATIVE) 08/17/17 11:30 Urine Methadone Screen Negative (NEGATIVE) 08/17/17 11:30 Ur Barbiturates Screen Negative (NEGATIVE) 08/17/17 11:30 Ur Phencyclidine Scrn Negative (NEGATIVE) 08/17/17 11:30 Ur Amphetamines Screen Negative (NEGATIVE) 08/17/17 11:30 U Benzodiazepines Scrn Negative (NEGATIVE) 08/17/17 11:30 U Oth Cocaine Metabols Negative (NEGATIVE) 08/17/17 11:30 U Cannabinoids Screen Negative (NEGATIVE) 08/17/17 11:30 Alcohol, Quantitative < 10 mg/dl (0-10) 08/17/17 11:30 Absolute Lymphs (Flow) 1450 Cells/mcL (850-3900) 08/17/17 17:15 % CD4 Cells 9 Percent (30-61) L 08/17/17 17:15 Absolute CD4 Count 128 Cells/mcL (490-1740) L 08/17/17 17:15 T-Help/Suppress Ratio 0.16 Ratio (0.86-5.00) L 08/17/17 17:15 % CD8 Cells 56 Percent (12-42) H 08/17/17 17:15 Absolute CD8 Count 809 Cells/mcL (180-1170) 08/17/17 17:15 RPR Nonreactive (NONREACTIVE) 08/18/17 14:15 Cryptococcus Ag Negative (NEGATIVE) 08/18/17 09:15 CMV IgG Ab 6.00 U/mL H 08/17/17 16:30 CMV IgM Ab <30.00 AU/mL 08/17/17 16:30 HIV-1 Ab Rapid Screen Reactive (NON REAC) H 08/17/17 16:29 HIV-1 RNA Qnt (RT-PCR) 6.47 (<1.30) H 08/17/17 16:29 Toxoplasma IgG Ab 44.20 IU/mL H 08/17/17 16:29 Toxoplasma IgM Ab <8.00 AU/mL 08/17/17 16:29 - Hospital Course Hospital Course: 56 y/o gent HIV + , was on HAART up until about a few weeks ago when moved from [place] to [place], was brought in by EMS after he was witnessed to have a seizure. Denies ETOH nor drug abuse. CT head showed no acute pathology, hydrocephalus. He was admitted in telemetry with AMS most likely postictal and seizure disorder. Neurology was consulted and recommended Keppra for seizure prevention . MRI of the head showed :moderate hydrocephalus with significant dilatation lateral ventricles as well as the 3rd ventricle. Associated periventricular white matter signal abnormality. 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 Scattered calcifications are observed most prominently in the right posterior parietal lobe measuring roughly 1 centimeter suggesting prior infection. Due to his history of HIV, CT head findings of calcifications and non compliance with HAARt meds ID was consulted. CD4 count reported as 128 indicating AIDS . Discussed with patient in detail need for antiretroviral treatment . He reported that he will go [place] to [place] as soon as possible to follow up with his doctor and HIV clinic as before and does not wish to follow up her with HIV clinic. Patient currently is hemodynamically stable, afebrile, AAOx3,ambulating with steady gait. will discharge patient home counselled to follow up with HIV clinic to initiate antiretroviral treatment Continue keppra Po for seizure prevention 1. Seizure Acute CT of head showed Hydrocephalus, multiple calcifications most likely old infection MRI head showed moderate hydrocephalus with significant dilatation lateral ventricles as well as the 3rd ventricle. Associated periventricular white matter signal abnormality. 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 Scattered calcifications are observed most prominently in the right posterior parietal lobe measuring roughly 1 centimeter suggesting prior infection. Neurology consulted- Dr Osorio and recommended continuation of Keppra for seizure prevention Will d/c patient home 2. Hydrocephalus Acute as above neuro consulted no further work up recommended gait is stable 3. Brain parenchymal calcification most likely old infection 4.AIDS Chronic check CD4 count 128 ID consulted patient will need to initiate anti retroviral treatment and wants to follow up with his HIV clinic in [place] Counselled patient on compliance with HIV treatment and follow up 5. Scabies Acute treated with Permethrin in ED Discharge Exam - Head Exam Head Exam: ATRAUMATIC, NORMAL INSPECTION, NORMOCEPHALIC - Eye Exam Eye Exam: EOMI, Normal appearance, PERRL Pupil Exam: NORMAL ACCOMODATION - ENT Exam ENT Exam: Mucous Membranes Moist, Normal Exam - Neck Exam Neck exam: Full Rom, Normal Inspection - Respiratory Exam Respiratory Exam: Clear to PA & Lateral, NORMAL BREATHING PATTERN. absent: Rales, Rhonchi, Wheezes - Cardiovascular Exam Cardiovascular Exam: REGULAR RHYTHM, RRR, +S1, +S2. absent: JVD - GI/Abdominal Exam GI & Abdominal Exam: Normal Bowel Sounds, Soft. absent: Distended, Guarding, Rebound, Tenderness - Rectal Exam Rectal Exam: Deferred - Extremities Exam Extremities exam: normal capillary refill, normal inspection, pedal pulses present - Back Exam Back exam: NORMAL INSPECTION - Neurological Exam Neurological exam: Alert, CN II-XII Intact, Oriented x3, Reflexes Normal - Psychiatric Exam Psychiatric exam: Normal Affect, Normal Mood - Skin Skin Exam: Dry, Intact, Normal Color, Warm Discharge Plan - Discharge Medications Prescriptions: levETIRAcetam [Keppra] 500 mg PO BID #60 tab - Follow Up Plan Condition: STABLE Disposition: HOME/ ROUTINE Patient education suggested?: Yes Instructions: Epilepsy (DC), AIDS (DC) Additional Instructions: hacer augie con cavazos doctor primario dentro de 7-10 quiroz Referrals: [facility] [place] [Outside]
[2017-08-22 18:32] LABS: TAENIA SOLIUM LARVA AB IgG NEGATIVE
== END 2017-08-20 15:18 | disposition home or self-care (01) | DRG 100 ==
LOC: EDBD 09:49 → H.ER 09:49 → H.ERHOLD 13:33 → OBSVTOIN 14:41 → H.MEDSURG1 16:30
PROVIDERS: ADMIT Internal Medicine; ATTEND Internal Medicine
DX: G40.909 Epilepsy, unspecified, not intractable, without status epilepticus (principal); B20 Human immunodeficiency virus [HIV] disease; G91.9 Hydrocephalus, unspecified; G93.89 Other specified disorders of brain; B86 Scabies; Z91.14 Patient's other noncompliance with medication regimen; Z59.0 Homelessness

== ENCOUNTER 2017-08-23 09:57 | Emergency (ER) | payer MEDICAID ==
[2017-08-23 10:02] VITALS: TEMP 98; BMI 25.0
[2017-08-23 10:45] LABS: RBC URINE 2 /hpf (0-3); URINE BACTERIA RARE (<OCC); URINE BILIRUBIN NEGATIVE (NEGATIVE); URINE BLOOD NEGATIVE (NEGATIVE); URINE COLOR AMBER (YELLOW); URINE GLUCOSE (UA) NEG (Normal); URINE KETONE TRACE mg/dL (NEGATIVE); URINE LEUKOCYTE ESTERASE NEG Leu/uL (Negative); URINE PROTEIN 100 mg/dL (NEGATIVE); WBC URINE 3 /hpf (0-5)
[2017-08-23 10:49] LABS: BASO % 0.3 % (0.0-2.0); EOS # 0.1 K/uL (0.0-0.7); EOS % 2.9 % (0.0-4.0); HEMATOCRIT 37.5 % (35.0-51.0); LYMPH # 1.7 K/uL (1.0-4.3); MEAN CELL VOLUME 96.1 fl (80.0-94.0); MEAN CORPUSCULAR HEMOGLOBIN 32.3 pg (27.0-31.0); MEAN CORPUSCULAR HGB CONC 33.6 g/dL (33.0-37.0); MEAN PLATELET VOLUME 9.3 fl (7.2-11.7); MONO # 0.4 K/uL (0.0-0.8); MONO % 9.4 % (0.0-10.0); NEUT # 2.1 K/uL (1.8-7.0); NEUT % 48.4 % (50.0-75.0); NRBC % 0.3 % (0.0-0.0); WHITE BLOOD COUNT 4.4 K/uL (4.8-10.8)
[2017-08-23 10:53] LABS: PARTIAL THROMBOPLASTIN TIME 33.2 Seconds (25.6-37.1)
[2017-08-23 10:55] LABS: ALB/GLOB RATIO 1.1 (1.0-2.1); ALKALINE PHOSPHATASE 76 U/L (38-126); ALT/SGPT 102 U/L (21-72); AST/SGOT 79 U/L (17-59); BILIRUBIN,TOTAL 0.5 mg/dl (0.2-1.3); BLOOD UREA NITROGEN 15 mg/dl (9-20); CARBON DIOXIDE 31 mmol/L (22-30); CHLORIDE 103 mmol/L (98-107); GFR AFRICAN-AMERICAN > 60; GLUCOSE,RANDOM 100 mg/dL (75-110); LIPASE 153 U/L (23-300); MAGNESIUM 1.8 MG/DL (1.6-2.3); POTASSIUM 3.9 MMOL/L (3.6-5.0); SODIUM 143 mmol/l (132-148); TOTAL PROTEIN 7.6 G/DL (6.3-8.2)
[2017-08-23] MEDS ORDERED: Iodixanol 320 MG/ML 100 ML BOTTLE IV ONE (11:40)
[2017-08-23] MEDS ORDERED: Sodium Chloride 0.9% 50 ML IV ONE (11:40)
--- NOTE | 2017-08-23 11:50 | ED PDOC ---
HPI: Chest Pain Time Seen by Provider: 08/23/17 10:05 Chief Complaint (Nursing): Medical Clearance History Per: Patient History/Exam Limitations: no limitations Onset/Duration Of Symptoms: Days, Gradual (3) Current Symptoms Are (Timing): Still Present Severity: Mild Quality: Dull Associated Symptoms: denies: Nausea, Dyspnea, Diaphoresis, Syncope Modifying Factors: None Exacerbating Factors: None Alleviating Factors: None Additional History Per: Patient Additional Complaint(s): [facility] with no medical problems, but states he run out of his HIV medications 5 days ago. Patient moved to [place] from [place] 10 days ago. pt just dc from hospital 3 days ago lives at a prison but planning to go move back to [place] Past Medical History Reviewed: Historical Data, Nursing Documentation, Vital Signs Vital Signs: Last Vital Signs Temp 98.0 F 08/23/17 10:01 Pulse 89 08/23/17 13:22 Resp 18 08/23/17 13:22 BP 118/76 08/23/17 13:22 Pulse Ox 97 08/23/17 13:22 - Medical History PMH: HIV Denies: Chronic Kidney Disease - Family History Family History: States: Unknown Family Hx - Living Arrangements Living Arrangements: With Friends/Others - Social History Current smoker - smoking cessation education provided: No Drugs: Denies - Home Medications Home Medications: Ambulatory Orders Medication Instructions Recorded levETIRAcetam [Keppra] 500 mg PO BID #60 tab 08/20/17 - Allergies Allergies/Adverse Reactions: Allergies Allergy/AdvReac Type Severity Reaction Status Date / Time No Known Allergies Allergy Verified 08/17/17 10:05 CORTEZ Risk Score for UA/NSTEMI - CORTEZ Risk Score Age > 64: NO 3 or more CAD Risk Factors: NO Known CAD (Stenosis greater than 50%): NO Aspirin use in past 7 days: NO Severe Angina: NO EKG ST changes greater than 0.5mm: NO Positive Cardiac Marker: NO CORTEZ Score: 0 Risk %: 5% Wells Criteria for PE - Wells Criteria for Pulmonary Embolism Clinical Signs and Symptoms of DVT: No P.E is #1 Diagnosis, or Equally Likely: No Heart Rate >100: No Immobilization at least 3 days;Surgery previous 4 weeks: Yes Previous, objectively diagnosed PE or DVT: No Hemoptysis: No Malignancy w/treatment within 6 months, or palliative: No Total Score: 1.5 Review of Systems ROS Statement: Except As Marked, All Systems Reviewed And Found Negative Constitutional: Negative for: Fever, Chills Cardiovascular: Positive for: Chest Pain. Negative for: Palpitations, Paroxysmal Noc. Dyspnea, Edema, Light Headedness Respiratory: Negative for: Cough, Shortness of Breath Gastrointestinal: Negative for: Nausea, Vomiting, Abdominal Pain Musculoskeletal: Negative for: Neck Pain Neurological: Positive for: Dizziness. Negative for: Weakness, Numbness, Change in Speech, Altered Mental Status, Headache Psych: Negative for: Depression, Psychosis, Suicidal ideation Physical Exam - Reviewed Nursing Documentation Reviewed: Yes Vital Signs Reviewed: Yes - Physical Exam Appears: Positive for: Well Head Exam: Positive for: ATRAUMATIC, NORMAL INSPECTION, NORMOCEPHALIC Eye Exam: Positive for: Normal appearance, EOMI, PERRL Neck: Positive for: Normal, Painless ROM, Supple Cardiovascular/Chest: Positive for: Regular Rate, Rhythm. Negative for: Chest Non Tender (substernal palpation completely repoduces the complaint), Edema, Gallop, Murmur, Bradycardia, Tachycardia, Ectopy, Friction Rub, Irregularly Irregular Respiratory: Positive for: Normal Breath Sounds, Decreased Breath Sounds. Negative for: Accessory Muscle Use, Crackles, Rales, Rhonchi, Stridor, Wheezing , Respiratory Distress Pulses-Radial (L): 2+ Pulses-Radial (R): 2+ Gastrointestinal/Abdominal: Positive for: Normal Exam, Bowel Sounds, Soft. Negative for: Tenderness Back: Positive for: Normal Inspection. Negative for: L CVA Tenderness, R CVA Tenderness Extremity: Positive for: Normal ROM. 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 Negative for: Motor/Sensory Deficits - Laboratory Results Result Diagrams: 08/23/17 10:30 08/23/17 10:30 - ECG ECG: Positive for: Interpreted By Me ECG Rhythm: Positive for: Normal QRS, Normal ST Segment, Sinus Rhythm, ST/T Changes Interpretation Of Abn EKG: rate of 97, no change compared to 08/17/2017 O2 Sat by Pulse Oximetry: 98 Pulse Ox Interpretation: Normal - Radiology X-Ray: Interpreted by Me X-Ray Interpretation: No Acute Disease - Progress ED Course And Treament: cp COMPARISON: None available. TECHNIQUE: Axial computed tomography images were obtained of the chest in the pulmonary arterial phase of enhancement. Coronal and sagittal reformatted images were created and reviewed. Intravenous contrast dose: Radiation dose: Total exam DLP = mGy-cm. This CT exam was performed using one or more of the following dose reduction techniques: Automated exposure control, adjustment of the mA and/or kV according to patient size, and/or use of iterative reconstruction technique. FINDINGS: PULMONARY ARTERIES: Unremarkable. No pulmonary embolism. AORTA: No acute findings. No thoracic aortic aneurysm. LUNGS: Unremarkable. No nodule, mass or pulmonary consolidation. PLEURAL SPACES: Unremarkable. No effusion or pneuomothorax. HEART: Unremarkable. No cardiomegaly. No significant pericardial effusion. LYMPH NODES: No lymphadenopathy. BONES, CHEST WALL: Unremarkable. No fracture or destructive lesion OTHER FINDINGS: Unremarkable. IMPRESSION: Unremarkable CT pulmonary angiogram. No pulmonary embolus. Pt just discharged from this hospital no sx now, neg eval. advise close f/u in med clinic pt agree's with plan and leaves ambulatory and in good spirits. Re-evaluation Time: 13:37 Condition: Improved Disposition - Clinical Impression Clinical Impression: Chest pain - Patient ED Disposition Is Patient to be Admitted: No Counseled Patient/Family Regarding: Studies Performed, Diagnosis, Need For Followup - Disposition Referrals: [facility] [Outside] (2 to 3 days) Disposition: Routine/Home Disposition Time: 13:38 Condition: GOOD Instructions: Chest Pain (ED) Forms: [employer] (Arabic)
--- NOTE | 2017-08-23 13:02 | CT ---
PROCEDURE: CT Chest with contrast (Pulmonary Angiogram) HISTORY: cp COMPARISON: None available. TECHNIQUE: Axial computed tomography images were obtained of the chest in the pulmonary arterial phase of enhancement. Coronal and sagittal reformatted images were created and reviewed. Intravenous contrast dose: Radiation dose: Total exam DLP = mGy-cm. This CT exam was performed using one or more of the following dose reduction techniques: Automated exposure control, adjustment of the mA and/or kV according to patient size, and/or use of iterative reconstruction technique. FINDINGS: PULMONARY ARTERIES: Unremarkable. No pulmonary embolism. AORTA: No acute findings. No thoracic aortic aneurysm. LUNGS: Unremarkable. No nodule, mass or pulmonary consolidation. PLEURAL SPACES: Unremarkable. No effusion or pneuomothorax. HEART: Unremarkable. No cardiomegaly. No significant pericardial effusion. LYMPH NODES: No lymphadenopathy. BONES, CHEST WALL: Unremarkable. No fracture or destructive lesion OTHER FINDINGS: Unremarkable. IMPRESSION: Unremarkable CT pulmonary angiogram. No pulmonary embolus.
[2017-08-23 13:23] VITALS: BP 118/76; PULSE 89; RESP 18
[2017-08-23 13:39] VITALS: O2SAT 98
--- NOTE | 2017-08-23 14:03 | RAD ---
PROCEDURE: CHEST RADIOGRAPH, 1 VIEW HISTORY: cp COMPARISON: None available. FINDINGS: LUNGS: Clear. PLEURA: No pneumothorax or pleural fluid seen. CARDIOVASCULAR: Normal. OSSEOUS STRUCTURES: No significant abnormalities. VISUALIZED UPPER ABDOMEN: Normal. OTHER FINDINGS: None. IMPRESSION: No active disease.
--- NOTE | 2017-08-25 09:39 | CARD ---
APPROVED REPORT EKG Measurement Heart [id number] NC 150P65 [id number] <Conclusion> Normal sinus rhythm Nonspecific T wave abnormality Abnormal ECG
== END 2017-08-23 13:50 | disposition home or self-care (01) ==
LOC: H.ER 09:57
DX: R07.89 Other chest pain (principal); B20 Human immunodeficiency virus [HIV] disease
CPT/HCPCS: 71010; 71275; 80053; 81003; 83690; 83735; 84484; 85025; 85378; 85610; 85730; 93005; 99284; Q9967

== ENCOUNTER 2017-11-21 14:44 | Emergency (ER) | payer MEDICAID, OTHER ==
[2017-11-21 14:44] VITALS: BMI 25.0
[2017-11-21 14:52] VITALS: O2SAT 99
[2017-11-21] MEDS ORDERED: Sodium Chloride 0.9% 1,000 ML IV STA (15:49)
--- NOTE | 2017-11-21 16:01 | ED PDOC ---
HPI: Seizure History Per: Patient <Sultan Claude - Last Filed: 11/21/17 16:17> <Duc Sanchez - Last Filed: 11/21/17 17:19> Time Seen by Provider: 11/21/17 15:01 Chief Complaint (Nursing): Seizure Additional Complaint(s): 57 yo undomiciled male pmhx AIDS and seizure brought to ED after having a [facility]. Pt does not recall the events during or after the seizure episodes. Pt reports he does not take any medications currently. Denies any chest pain, dyspnea, nausea, vomiting, headache, blurry vision, extremities pain or focal weakness. Pt was discharge from [facility] on 08/20/17 w/ keppra 500 mg BID for seizure by neurologist Dr. Osorio. Pt reports he has not been taking his HIV and seizure medications. (Sultan Claude) Supervising Attending Note <Sultan Claude - Last Filed: 11/21/17 16:17> - Supervising Attending Note The Documented history was done by the: Physician Hazardous Substances Scientist The documented physical exam was done by the: Physician Hazardous Substances Scientist The documented procedures were done by the: Physician Hazardous Substances Scientist - Attestation: I have personally seen and examined this patient.: Yes I have fully participated in the care of the patient.: Yes I have reviewed all pertinent clinical information, including history, physical exam and plan: Yes <Duc Sanchez - Last Filed: 11/21/17 17:19> - Notes: Notes:: Seizure hx; had witnessed episode. Does not take meds. Is homeless. (Duc Sanchez) Past Medical History - Medical History PMH: HIV, Seizures Denies: Chronic Kidney Disease - Family History Family History: States: Unknown Family Hx - Social History Current smoker - smoking cessation education provided: No Alcohol: None Drugs: Denies <Sultan Claude - Last Filed: 11/21/17 16:17> <Duc Sanchez - Last Filed: 11/21/17 17:19> Vital Signs: Last Vital Signs Temp 98.1 F 11/21/17 14:49 Pulse 96 H 11/21/17 14:49 Resp 19 11/21/17 14:49 BP 121/75 11/21/17 14:49 Pulse Ox 99 11/21/17 16:18 - Home Medications Home Medications: Ambulatory Orders Medication Instructions Recorded levETIRAcetam [Keppra] 500 mg PO BID #60 tab 08/20/17 levETIRAcetam [Keppra] 500 mg PO BID 5 Days tab 11/21/17 - Allergies Allergies/Adverse Reactions: Allergies Allergy/AdvReac Type Severity Reaction Status Date / Time No Known Allergies Allergy Verified 11/21/17 14:49 Review of Systems Constitutional: Negative for: Fever Cardiovascular: Negative for: Chest Pain, Palpitations Respiratory: Negative for: Cough, Shortness of Breath Gastrointestinal: Negative for: Vomiting Musculoskeletal: Negative for: Back Pain Neurological: Negative for: Weakness, Numbness <Sultan Claude - Last Filed: 11/21/17 16:17> Physical Exam - Physical Exam Appears: Positive for: No Acute Distress (disheveled and has foul odor) Eye Exam: Positive for: EOMI, PERRL ENT: Positive for: Other (No tongue laceration seen) Cardiovascular/Chest: Positive for: Regular Rate, Rhythm Respiratory: Positive for: Normal Breath Sounds. Negative for: Crackles, Wheezing Gastrointestinal/Abdominal: Positive for: Bowel Sounds, Soft. 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 Negative for: Motor/Sensory Deficits <Sultan Claude - Last Filed: 11/21/17 16:17> - Physical Exam Appears: Positive for: No Acute Distress Eye Exam: Positive for: Normal appearance, EOMI, PERRL Cardiovascular/Chest: Positive for: Regular Rate, Rhythm, Chest Non Tender. Negative for: Edema Respiratory: Positive for: Normal Breath Sounds <Duc Sanchez M - Last Filed: 11/21/17 17:19> - ECG O2 Sat by Pulse Oximetry: 99 <Sultan Claude - Last Filed: 11/21/17 16:17> - Laboratory Results Result Diagrams: 11/21/17 16:23 11/21/17 16:23 Interpretation Of Abn Labs: no acute - ECG ECG: Positive for: Interpreted By Me, Viewed By Me ECG Rhythm: Positive for: Normal QRS, Normal ST Segment, Sinus Rhythm - CT Scan/US ct Other Rad Studies (CT/US): Read By Radiologist Other Rad Interpretation: no acute <Duc Sanchez - Last Filed: 11/21/17 17:19> - Progress ED Course And Treament: Assessment; 57 yo male hx HIV and seizure disorder presents to ED for seizure episode Plan: CT head w/o contrast ekg troponin BAL cmp drug screen cbc IV bolus NS 1000cc Case d/w with ED attending Dr. Sanchez (Sultan Claude) 1715: Stable. Noncompliant with meds. Loading based on last visit, pt. on keppra. Will rx same dose on dc. AAOx3. Pain free. Tolerated PO. Ambulated with no issues. Fu with clinic. (Duc Sanchez) Disposition <Sultan Claude - Last Filed: 11/21/17 16:17> - Patient ED Disposition Is Patient to be Admitted: No Counseled Patient/Family Regarding: Studies Performed, Diagnosis, Need For Followup, Rx Given - Disposition Disposition: Routine/Home Disposition Time: 17:17 <Duc Sanchez - Last Filed: 11/21/17 17:19> - Clinical Impression Clinical Impression: Generalized seizure - Disposition Referrals: [facility] [Outside] - 11/24/17 Condition: STABLE Additional Instructions: Return if not better in 3 days. Prescriptions: levETIRAcetam [Keppra] 500 mg PO BID 5 Days tab Instructions: Epilepsy (ED) Print Language: SOUTH SUDANESE
[2017-11-21 16:42] LABS: BASO % 0.7 % (0.0-2.0); EOS # 0.3 K/uL (0.0-0.7); EOS % 5.3 % (0.0-4.0); HEMOGLOBIN 12.7 g/dL (12.0-18.0); LYMPH # 2.3 K/uL (1.0-4.3); LYMPH % 44.2 % (20.0-40.0); MEAN CELL VOLUME 94.4 fl (80.0-94.0); MEAN CORPUSCULAR HEMOGLOBIN 31.1 pg (27.0-31.0); MEAN CORPUSCULAR HGB CONC 32.9 g/dL (33.0-37.0); MEAN PLATELET VOLUME 8.5 fl (7.2-11.7); MONO # 0.5 K/uL (0.0-0.8); MONO % 10.5 % (0.0-10.0); NEUT % 39.3 % (50.0-75.0); NRBC % 0.2 % (0.0-0.0); RBC 4.09 Mil/uL (4.40-5.90); RED CELL DISTRIBUTION WIDTH 13.7 % (11.5-14.5); WHITE BLOOD COUNT 5.1 K/uL (4.8-10.8)
[2017-11-21 16:49] LABS: ALB/GLOB RATIO 0.9 (1.0-2.1); ALT/SGPT 49 U/L (21-72); AST/SGOT 52 U/L (17-59); BLOOD UREA NITROGEN 18 mg/dl (9-20); CALCIUM 9.7 mg/dL (8.4-10.2); GFR AFRICAN-AMERICAN > 60; GFR NON-AFRICAN AMERICAN > 60
--- NOTE | 2017-11-21 16:55 | CT ---
PROCEDURE: CT scan brain dated 11/21/2017 HISTORY: Headache COMPARISON: Comparison made with prior CT scan brain dated 08/17/2017. . TECHNIQUE: Contiguous helical/ transaxial computed tomography images were obtained through the head/brain without intravenous contrast. . Radiation dose: Total exam DLP = 861.1 mGy-cm. This CT exam was performed using one or more of the following dose reduction techniques: Automated exposure control, adjustment of the mA and/or kV according to patient size, and/or use of iterative reconstruction technique. . FINDINGS: HEMORRHAGE: No acute parenchymal, subarachnoid or extra-axial hemorrhage. BRAIN: Multiple tiny calcifications are again seen scattered throughout the subarachnoid spaces suggesting underlying neurocysticercosis. Clinical correlation with history is recommended. Moderate fairly significant diffuse/confluent low-attenuation changes are seen extending peripherally into the deep and subcortical white matter both cerebral hemispheres. . These changes are of uncertain etiology though could be secondary to chronic obstructive hydrocephalus with end-stage gliosis however the possibility of chronic sequela of small vessel disease not excluded. There is a small elliptical shaped area of low attenuation (CSF like attenuation) in the left anterior subinsular region which could represent a chronic lacunar-type infarct. Possibility of a area of gliosis from prior infection of neurocysticercosis not excluded. Clinical correlation recommended. VENTRICLES: Persistent significant dilatation of the 3rd and lateral ventricles. Fourth ventricle is normal. . Findings may represent chronic compensated obstructive type hydrocephalus with obstruction at the level of the aqueduct of [place]. CALVARIUM: The calvarium appears intact. PARANASAL SINUSES: Unremarkable as visualized. No significant inflammatory changes. MASTOID AIR CELLS: Unremarkable as visualized. No inflammatory changes. OTHER FINDINGS: None. IMPRESSION: No acute intracranial hemorrhage. No significant interval change in the appearance of the brain. There are multiple tiny on subarachnoid calcifications again seen throughout the supratentorial compartment suggesting sequela of neurocysticercosis. Clinical correlation recommended. . Marked dilatation 3rd and lateral ventricles with normal-appearing 4th ventricle. Findings suggest chronic compensated noncommunicating obstructive type hydrocephalus with obstruction at the level of the aqueduct [place]. There also moderate to significant diffuse/confluent chronic low-attenuation white matter changes which could represent chronic sequela of obstructive hydrocephalus with end-stage gliosis however concomitant sequela of small vessel disease not excluded. Probable old infarct left anterior subinsular region. . Clinical correlation recommended. Findings discussed with Dr. Sanchez at approximately 4:52 p.m. with written down and read back verification.
[2017-11-21 18:33] VITALS: BP 124/68; PULSE 74; RESP 18; TEMP 98.2
--- NOTE | 2017-11-22 09:36 | CARD ---
APPROVED REPORT EKG Measurement Heart [id number] NC 154P66 [id number] <Conclusion> Normal sinus rhythm Normal ECG
== END 2017-11-21 18:33 | disposition home or self-care (01) ==
LOC: H.ER 14:44
DX: G40.909 Epilepsy, unspecified, not intractable, without status epilepticus (principal); Z91.14 Patient's other noncompliance with medication regimen; B20 Human immunodeficiency virus [HIV] disease
CPT/HCPCS: 70450; 80053; 80320; 84484; 85025; 93005; 99285; J7040

== ENCOUNTER 2017-11-29 14:11 | Inpatient (IN) | payer OTHER, SELFPAY ==
[2017-11-29 14:12] VITALS: BMI 25.0
[2017-11-29 15:16] LABS: EOS # 0.1 K/uL (0.0-0.7); EOS % 2.3 % (0.0-4.0); HEMOGLOBIN 13.9 g/dL (12.0-18.0); LYMPH # 1.4 K/uL (1.0-4.3); LYMPH % 33.2 % (20.0-40.0); MEAN CELL VOLUME 92.5 fl (80.0-94.0); MEAN CORPUSCULAR HEMOGLOBIN 31.3 pg (27.0-31.0); MEAN CORPUSCULAR HGB CONC 33.8 g/dL (33.0-37.0); MEAN PLATELET VOLUME 10.2 fl (7.2-11.7); MONO # 0.5 K/uL (0.0-0.8); MONO % 11.1 % (0.0-10.0); NEUT # 2.2 K/uL (1.8-7.0); NEUT % 52.4 % (50.0-75.0); NRBC % 0.4 % (0.0-0.0); RBC 4.43 Mil/uL (4.40-5.90); RED CELL DISTRIBUTION WIDTH 13.5 % (11.5-14.5); WHITE BLOOD COUNT 4.1 K/uL (4.8-10.8)
[2017-11-29 15:42] LABS: PARTIAL THROMBOPLASTIN TIME 31.2 Seconds (25.6-37.1); PROTHROMBIN TIME 11.4 Seconds (9.8-13.1)
--- NOTE | 2017-11-29 16:27 | CT ---
PROCEDURE: CT HEAD WITHOUT CONTRAST. HISTORY: AMS. COMPARISON: None available. TECHNIQUE: Axial computed tomography images were obtained through the head/brain without intravenous contrast. Radiation dose: Total exam DLP = 880.99 mGy-cm. This CT exam was performed using one or more of the following dose reduction techniques: Automated exposure control, adjustment of the mA and/or kV according to patient size, and/or use of iterative reconstruction technique. FINDINGS: HEMORRHAGE: No acute parenchymal, subarachnoid or extra-axial hemorrhage. BRAIN: Re- demonstrated are multiple tiny at calcifications scattered throughout the subarachnoid spaces consistent with an neurocysticercosis. Clinical correlation recommended. . Note the largest of these calcifications is again seen in the right posterior frontal parietal subarachnoid space at the vertex. Also re- demonstrated are moderate to significant diffuse/ confluent low-attenuation changes that extend peripherally into the deep and subcortical white matter of both cerebral hemispheres. Changes may represent chronic -end-stage gliosis of prolonged hydrocephalus and/or sequela of small vessel disease. . 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 VENTRICLES: Marked dilatation of the 3rd and lateral ventricles with relatively normal-appearing 4th ventricle. Findings suggest chronic compensated obstructive hydrocephalus with obstruction at the level of the aqued[place] CALVARIUM: Unremarkable. PARANASAL SINUSES: Unremarkable as visualized. No significant inflammatory changes. MASTOID AIR CELLS: Unremarkable as visualized. No inflammatory changes. OTHER FINDINGS: None. IMPRESSION: No interval change in the appearance of the brain. Re- demonstrated are multiple tiny calcific densities scattered throughout the subarachnoid spaces consistent with prior exposure to a narrow cysticercosis. Marked dilatation 3rd and lateral ventricles with relatively normal-appearing 4th ventricle. 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 Low-attenuation white matter changes could represent some combination of end-stage gliosis related to prolonged hydrocephalus however concomitant chronic sequela of small vessel disease may contribute. 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 No evidence of acute intracranial hemorrhage.
[2017-11-29 16:42] LABS: ALB/GLOB RATIO 0.9 (1.0-2.1); ALBUMIN 4.3 g/dL (3.5-5.0); ALT/SGPT 60 U/L (21-72); AST/SGOT 66 U/L (17-59); BLOOD UREA NITROGEN 23 mg/dl (9-20); CALCIUM 9.4 mg/dL (8.4-10.2); GFR AFRICAN-AMERICAN > 60; GFR NON-AFRICAN AMERICAN > 60
--- NOTE | 2017-11-29 18:30 | ED PDOC ---
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) History/Exam Limitations: Clinical Condition Onset/Duration Of Symptoms: Gradual Description Of Symptoms: Confused Usual Baseline: Other (unkown) Exacerbating Factor(s): Unknown Severity: Moderate Additional History Per: Patient, Prior Records Associated Symptoms: denies: Fever, Chills, Chest Pain, Neck Pain, Back Pain, Headache, Confused, Trouble Concentrating, Trouble Thinking, Not Eating, Not Drinking, Dyspnea, Weakness Additional Complaint(s): pt seen here last week, has knows aids non complaint medication appears more altered than last admission pt is alert to person only and not to time. Past Medical History Reviewed: Historical Data, Nursing Documentation, Vital Signs Vital Signs: Last Vital Signs Temp 98.0 F 11/29/17 14:14 Pulse 120 H 11/29/17 14:14 Resp 16 11/29/17 14:14 BP 112/81 11/29/17 14:14 Pulse Ox 99 11/29/17 14:14 - Medical History PMH: HIV, Seizures Denies: Chronic Kidney Disease - Family History Family History: States: Unknown Family Hx - Living Arrangements Living Arrangements: With Friends/Others - Home Medications Home Medications: Ambulatory Orders Medication Instructions Recorded Unobtainable 11/29/17 - Allergies Allergies/Adverse Reactions: Allergies Allergy/AdvReac Type Severity Reaction Status Date / Time No Known Allergies Allergy Verified 11/29/17 14:14 Review of Systems Review Of Systems: ROS cannot be obtained secondary to pt's inabilty to answer questions. Constitutional: Negative for: Fever, Chills Cardiovascular: Negative for: Chest Pain, Palpitations Neurological: Positive for: Altered Mental Status. Negative for: Weakness, Numbness Physical Exam - Reviewed Nursing Documentation Reviewed: Yes Vital Signs Reviewed: Yes - Physical Exam Appears: Positive for: Uncomfortable Head Exam: Positive for: ATRAUMATIC, NORMAL INSPECTION, NORMOCEPHALIC Skin: Positive for: Normal Color, Warm, Dry Eye Exam: Positive for: Normal appearance, EOMI, PERRL ENT: Positive for: Pharynx Is (clear,mmm). Negative for: Pharyngeal Erythema, Tonsillar Exudate, Tonsillar Swelling Neck: Positive for: Normal, Painless ROM, Supple Cardiovascular/Chest: Positive for: Regular Rate, Rhythm, Chest Non Tender. Negative for: Edema, Gallop, Murmur, Bradycardia, Tachycardia Respiratory: Positive for: Normal Breath Sounds. Negative for: Decreased Breath Sounds, Accessory Muscle Use, Rales, Rhonchi, Stridor, Wheezing, Respiratory Distress Pulses-Radial (L): 2+ Pulses-Radial (R): 2+ Gastrointestinal/Abdominal: Positive for: Normal Exam, Bowel Sounds, Soft. Negative for: Tenderness Back: Positive for: Normal Inspection. Negative for: L CVA Tenderness, R CVA Tenderness Extremity: Positive for: Normal ROM. 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 Negative for: Motor/Sensory Deficits, Aphasia, Facial Droop - Laboratory Results Result Diagrams: 11/29/17 15:09 11/29/17 15:57 - ECG O2 Sat by Pulse Oximetry: 99 Pulse Ox Interpretation: Normal - Radiology X-Ray: Interpreted by Me X-Ray Interpretation: No Acute Disease - Progress ED Course And Treament: discussed findings with dr deluna the neuro who took care of pt before, pt had unremarkable eeg. after revieweing ct findings dr deluna advised an lp. case discussed with Dr rafael slade will admit Re-evaluation Time: 18:31 Condition: Unchanged Disposition - Clinical Impression Clinical Impression: Altered mental status - Patient ED Disposition Is Patient to be Admitted: Yes Counseled Patient/Family Regarding: Studies Performed, Diagnosis, Need For Followup - Disposition Referrals: FAMILY PROVIDER,NO [Primary Care Provider] - Disposition Time: 18:47 Condition: STABLE Forms: [email or web address] (Grenadian) - Pt Status Changed To: Hospital Disposition Of: Inpatient - Admit Certification Admit to Inpatient:: After my assessment, the patient will require hospitalization for at least two midnights. This is because of the severity of symptoms shown, intensity of services needed, and/or the medical risk in this patient being treated as an outpatient. - POA Present On Arrival: None - Lumbar Puncture Procedure LP Procedure: Discussed Procedure W/Pt, Consent Form Completed, Head CT Completed, Use Of Sterile Technique, Injection Site Prepped W/Betadine Position for Procedure: Sitting Injection Location: L 4-5 (pt tolerate welll approx, nml opening pressure, approx 8 cc removed)
--- NOTE | 2017-11-29 18:48 | CP.PCM.HP ---
History of Present Illness - History of Present Illness History of Present Illness: CC: unable to say why he is here HPI: 57 year old male recently admitted several months ago for AMS, history of HIV+ noncomplaint with medications, seizures, thoroughly worked up prior admission, presented to the ER via BLS pleasantly confused being sent from the clock repairer office today. Patient unable to describe why he is here or why he went to the clock repairer office today, although he is oriented to person and place only, which is consistent with his prior admission 3 months ago. He is HD stable, afebrile, no WBC, head CT no interval change. LP completed in ER, not yet resulted. Will admit OBS for AMS, eval and obs overnight. No focal neuro deficits. ROS: Per HPI, all other systems reviewed and neg PMH: unable to obtain at this time, no family or friends available PSH: unable to obtain at this time, no family or friends available FH: unable to obtain at this time, no family or friends available SH: unable to obtain at this time, no family or friends available NKDA Vitals Reviewed GEN: WDWN, ALERT, COOPERATIVE, pleasantly confused HEENT: NCAT, PERRL, EOMI HEART: RRR, +S1S2, NO MRG LUNG: CTAB, NO WRR ABD: SOFT, NT, ND, NO HSM, NO MASSES EXT: NORMAL PEDAL PULSES, GOOD CAPILLARY REFILL NEURO: alert and oriented to person and place, STRENGTH EQUAL BILATERAL UPPER AND LOWER EXTREMITIES SKIN: WARM, DRY PSYCH: NORMAL MOOD, NORMAL AFFECT LABS Most Recent Lab Values WBC 4.1 K/uL (4.8-10.8) L 11/29/17 15: RBC 4.43 Mil/uL (4.40-5.90) 11/29/17 15: Hgb 13.9 g/dL (12.0-18.0) 11/29/17 15: Hct 41.0 % (35.0-51.0) 11/29/17 15: MCV 92.5 fl (80.0-94.0) 11/29/17 15: MCH 31.3 pg (27.0-31.0) H 11/29/17 15: MCHC 33.8 g/dL (33.0-37.0) 11/29/17 15:09 RDW 13.5 % (11.5-14.5) 11/29/17 15:09 Plt Count 196 K/uL (130-400) 11/29/17 15:09 MPV 10.2 fl (7.2-11.7) 11/29/17 15:09 Neut % (Auto) 52.4 % (50.0-75.0) 11/29/17 15:09 Lymph % (Auto) 33.2 % (20.0-40.0) 11/29/17 15:09 [place] % (Auto) 11.1 % (0.0-10.0) H 11/29/17 15:09 Eos % (Auto) 2.3 % (0.0-4.0) 11/29/17 15:09 Baso % (Auto) 1.0 % (0.0-2.0) 11/29/17 15:09 Neut # (Auto) 2.2 K/uL (1.8-7.0) 11/29/17 15:09 Lymph # (Auto) 1.4 K/uL (1.0-4.3) 11/29/17 15:09 [place] # (Auto) 0.5 K/uL (0.0-0.8) 11/29/17 15:09 Eos # (Auto) 0.1 K/uL (0.0-0.7) 11/29/17 15:09 Baso # (Auto) 0.0 K/uL (0.0-0.2) 11/29/17 15:09 PT 11.4 Seconds (9.8-13.1) 11/29/17 15:09 INR 1.0 (0.9-1.2) 11/29/17 15:09 APTT 31.2 Seconds (25.6-37.1) 11/29/17 15:09 Sodium 141 mmol/l (132-148) 11/29/17 15:57 Potassium 4.4 MMOL/L (3.6-5.0) 11/29/17 15:57 Chloride 104 mmol/L (98-107) 11/29/17 15:57 Carbon Dioxide 25 mmol/L (22-30) 11/29/17 15:57 Anion Gap 16 (10-20) 11/29/17 15:57 BUN 23 mg/dl (9-20) H 11/29/17 15:57 Creatinine 0.9 mg/dl (0.8-1.5) 11/29/17 15:57 Est GFR ( Amer) > 60 11/29/17 15:57 Est GFR (Non-Af Amer) > 60 11/29/17 15:57 Random Glucose 89 mg/dL (75-110) 11/29/17 15:57 Lactic Acid 0.9 MMOL/L (0.7-2.1) 11/29/17 15:09 Calcium 9.4 mg/dL (8.4-10.2) 11/29/17 15:57 Total Bilirubin 0.7 mg/dl (0.2-1.3) 11/29/17 15:57 AST 66 U/L (17-59) H D 11/29/17 15:57 ALT 60 U/L (21-72) 11/29/17 15:57 Alkaline Phosphatase 89 U/L (38-126) 11/29/17 15:57 Ammonia 28 umo/L (16-60) 11/29/17 15:57 Troponin I < 0.0120 ng/mL (0.00-0.120) 11/29/17 17:10 Total Protein 9.0 G/DL (6.3-8.2) H 11/29/17 15:57 Albumin 4.3 g/dL (3.5-5.0) 11/29/17 15:57 Globulin 4.7 gm/dL (2.2-3.9) H 11/29/17 15:57 Albumin/Globulin Ratio 0.9 (1.0-2.1) L 11/29/17 15:57 Alcohol, Quantitative < 10 mg/dl (0-10) 11/29/17 17:10 ASSESSMENT AND PLAN 57 year old male recently admitted several months ago for AMS, history of HIV+ noncomplaint with medications, seizures, thoroughly worked up prior admission, presented to the ER via BLS pleasantly confused being sent from the clock repairer office today. Patient unable to describe why he is here or why he went to the clock repairer office today, although he is oriented to person and place only, which is consistent with his prior admission 3 months ago. He is HD stable, afebrile, no WBC, head CT no interval change. LP completed in ER, not yet resulted. Will admit OBS for AMS, eval and obs overnight. No focal neuro deficits. 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 Monitor overnight await LP results patient extensively worked up 3 months ago, due to prior infection and calcifications, prior consult with ID: no antiparasitics indicated given calcifications. Seizures continue Keppra HIV sending CD4 count and viral load patient did not want to follow up at HIV clinic upon prior discharge as he stated he was returning to [place]. Present on Admission - Present on Admission Any Indicators Present on Admission: No Past Patient History - Tetanus Immunizations Tetanus Immunization: Unknown - Past Medical History & Family History Past Medical History?: Yes - Past Social History Smoking Status: Never Smoked - CARDIAC Hx Cardiac Disorders: No - PULMONARY Hx Respiratory Disorders: No - NEUROLOGICAL Hx Seizures: Yes - HEENT Hx HEENT Problems: No - RENAL Hx Chronic Kidney Disease: No - ENDOCRINE/METABOLIC Hx Endocrine Disorders: No - HEMATOLOGICAL/ONCOLOGICAL Hx Human Immunodeficiency Virus (HIV): Yes - MUSCULOSKELETAL/RHEUMATOLOGICAL Hx Falls: Yes - PSYCHIATRIC Hx Substance Use: No - SURGICAL HISTORY Hx Surgeries: No - ANESTHESIA Hx Anesthesia: No Meds Allergies/Adverse Reactions: Allergies Allergy/AdvReac Type Severity Reaction Status Date / Time No Known Allergies Allergy Verified 11/29/17 14:14 Results - Vital Signs Recent Vital Signs: Last Vital Signs Temp 98.0 F 11/29/17 14:14 Pulse 120 H 11/29/17 14:14 Resp 16 11/29/17 14:14 BP 112/81 11/29/17 14:14 Pulse Ox 99 11/29/17 18:48 - Labs Result Diagrams: 11/29/17 15:09 11/29/17 15:57 Labs: Laboratory Results - last 24 hr 11/29/17 11/29/17 11/29/17 15:09 15:09 15:09 WBC 4.1 L RBC 4.43 Hgb 13.9 Hct 41.0 MCV 92.5 MCH 31.3 H MCHC 33.8 RDW 13.5 Plt Count 196 MPV 10.2 Neut % (Auto) 52.4 Lymph % (Auto) 33.2 [place] % (Auto) 11.1 H Eos % (Auto) 2.3 Baso % (Auto) 1.0 Neut # (Auto) 2.2 Lymph # (Auto) 1.4 [place] # (Auto) 0.5 Eos # (Auto) 0.1 Baso # (Auto) 0.0 PT 11.4 INR 1.0 APTT 31.2 Sodium Potassium Chloride Carbon Dioxide Anion Gap BUN Creatinine Est GFR ( Amer) Est GFR (Non-Af Amer) Random Glucose Lactic Acid 0.9 Calcium Total Bilirubin AST ALT Alkaline Phosphatase Ammonia Troponin I Total Protein Albumin Globulin Albumin/Globulin Ratio Alcohol, Quantitative 11/29/17 11/29/17 11/29/17 15:57 15:57 17:10 WBC RBC Hgb Hct MCV MCH MCHC RDW Plt Count MPV Neut % (Auto) Lymph % (Auto) [place] % (Auto) Eos % (Auto) Baso % (Auto) Neut # (Auto) Lymph # (Auto) [place] # (Auto) Eos # (Auto) Baso # (Auto) PT INR APTT Sodium 141 Potassium 4.4 Chloride 104 Carbon Dioxide 25 Anion Gap 16 BUN 23 H Creatinine 0.9 Est GFR ( Amer) > 60 Est GFR (Non-Af Amer) > 60 Random Glucose 89 Lactic Acid Calcium 9.4 Total Bilirubin 0.7 AST 66 H D ALT 60 Alkaline Phosphatase 89 Ammonia 28 Troponin I < 0.0120 Total Protein 9.0 H Albumin 4.3 Globulin 4.7 H Albumin/Globulin Ratio 0.9 L Alcohol, Quantitative < 10
[2017-11-29 19:16] LABS: FLUID TYPE SPINAL FLUID
[2017-11-29 19:45] LABS: SQUAMOUS EPITHIAL 2 /hpf (0-5); URINE BACTERIA RARE (<OCC); URINE BILIRUBIN NEGATIVE (NEGATIVE); URINE BLOOD NEGATIVE (NEGATIVE); URINE CLARITY SLIGHTY-CLOUDY (Clear); URINE COLOR AMBER (YELLOW); URINE GLUCOSE (UA) NEG (Normal); URINE HYALINE CAST 0-2 /hpf (0-2); URINE LEUKOCYTE ESTERASE NEG Leu/uL (Negative); URINE PROTEIN 100 mg/dL (NEGATIVE); URINE UROBILINOGEN 0.2-1.0 mg/dL (0.2-1.0)
[2017-11-29 19:49] LABS: BARBITURATES, UR NEGATIVE (NEGATIVE); BENZODIAZEPINES, UR NEGATIVE (NEGATIVE); OPIATES, UR NEGATIVE (NEGATIVE); PHENCYCLIDINE, UR NEGATIVE (NEGATIVE)
[2017-11-29 20:53] LABS: CSF APPEARANCE CLEAR/COLORLESS (CLEAR); CSF VOLUME 2 mL (0-1)
[2017-11-29 20:54] LABS: CSF MONO/MACROPHAGE 0 % (0-0)
[2017-11-30 08:04] LABS: BASO % 0.5 % (0.0-2.0); EOS # 0.1 K/uL (0.0-0.7); EOS % 2.3 % (0.0-4.0); HEMOGLOBIN 12.6 g/dL (12.0-18.0); LYMPH % 49.4 % (20.0-40.0); MEAN CELL VOLUME 93.7 fl (80.0-94.0); MEAN CORPUSCULAR HEMOGLOBIN 30.2 pg (27.0-31.0); MEAN CORPUSCULAR HGB CONC 32.2 g/dL (33.0-37.0); MEAN PLATELET VOLUME 9.7 fl (7.2-11.7); MONO # 0.4 K/uL (0.0-0.8); MONO % 10.8 % (0.0-10.0); NEUT # 1.5 K/uL (1.8-7.0); NRBC % 0.2 % (0.0-0.0); RBC 4.17 Mil/uL (4.40-5.90); RED CELL DISTRIBUTION WIDTH 13.2 % (11.5-14.5); WHITE BLOOD COUNT 3.9 K/uL (4.8-10.8)
[2017-11-30 08:11] LABS: BLOOD UREA NITROGEN 24 mg/dl (9-20); CALCIUM 9.1 mg/dL (8.4-10.2); GFR AFRICAN-AMERICAN > 60; GFR NON-AFRICAN AMERICAN > 60
--- NOTE | 2017-11-30 18:39 | CP.PCM.PN ---
Subjective - Date & Time of Evaluation Date of Evaluation: 11/30/17 Time of Evaluation: 18:30 - Subjective Subjective: Pt is febrile 101.8 oriented to person and place very slow speech answers questions appropriately follows simple commands accdg to staff - pt was agitated last night and was walking around the unit however today , he is calm he ate his meals and walked to the bathroom with stable gait accdg to the 1:1 Pt denies headache, no dizziness no CP no SOB no abd pain no dysuria no genital lesions no diarrhea Objective - Vital Signs/Intake and Output Vital Signs (last 24 hours): Temp Pulse Resp BP Pulse Ox 101.8 F H 97 H 20 101/59 L 96 11/30/17 17:41 11/30/17 17:01 11/30/17 17:01 11/30/17 17:01 11/30/17 17:01 - Medications Medications: Current Medications Acyclovir 700 mg/ Sodium (Chloride) 100 mls @ 100 mls/hr IVPB Q8 MOR PRN Reason: Protocol Ibuprofen (Motrin Tab) 400 mg PO Q6 PRN PRN Reason: Fever >100.4 F Last Admin: 11/30/17 17:41 Dose: 400 mg Levetiracetam (Keppra) 500 mg PO BID MOR Last Admin: 11/30/17 17:41 Dose: 500 mg - Labs Labs: 11/30/17 05:50 11/30/17 05:50 PT 11.4 Seconds (9.8-13.1) 11/29/17 15:09 INR 1.0 (0.9-1.2) 11/29/17 15:09 APTT 31.2 Seconds (25.6-37.1) 11/29/17 15:09 - Constitutional Appears: No Acute Distress, Unkempt, Older Than Stated Age, Confused - Head Exam Head Exam: ATRAUMATIC, NORMAL INSPECTION, NORMOCEPHALIC - Eye Exam Eye Exam: EOMI, Normal appearance, PERRL Pupil Exam: NORMAL ACCOMODATION - ENT Exam ENT Exam: Mucous Membranes Moist, Normal External Ear Exam - Neck Exam Neck Exam: Full ROM. absent: Meningismus - Respiratory Exam Respiratory Exam: Rhonchi, NORMAL BREATHING PATTERN. absent: Rales, Respiratory Distress - Cardiovascular Exam Cardiovascular Exam: REGULAR RHYTHM, +S1, +S2 - GI/Abdominal Exam GI & Abdominal Exam: Soft, Normal Bowel Sounds. absent: Tenderness - Extremities Exam Extremities Exam: Full ROM, Normal Capillary Refill. absent: Calf Tenderness - Back Exam Back Exam: Full ROM. absent: CVA tenderness (L), CVA tenderness (R) - Neurological Exam Neurological Exam: Alert, Awake, CN II-XII Intact. absent: Motor Sensory Deficit Neuro motor strength exam: Left Upper Extremity: 5, Right Upper Extremity: 5, Left Lower Extremity: 5, Right Lower Extremity: 5 Additional comments: oriented to person and place - Psychiatric Exam Psychiatric exam: Flat Affect - Skin Skin Exam: Dry, Normal Color, Warm Assessment and Plan (1) Fever Status: Acute (2) Altered mental status Status: Acute (3) Seizure Status: Chronic (4) HIV (human immunodeficiency virus infection) Status: Chronic (5) Brain parenchymal calcification Status: Chronic (6) DVT prophylaxis Status: Acute - Assessment and Plan (Free Text) Assessment: 57 y/o gent , homeless, known Hx of HIV , not on antiretroviral tx, Seizure Dis , noncompliant with meds and follow up, was brought in by EMS because of alteration in mental status- pt " walked into a hooker on's office, wanting to speak to a hooker on". In the ED , was found to be oriented to self only . LP was done : Gram stain : negative , CSF showed 3 WBC , mostly Lympho. Today 11/30 , pt is febrile to 101.8. denies any sxs. (1) Fever Status: Acute unclear etiology , given AMS need to r/o FOOD EXPEDITOR Infection CSF analysis showed 3 WBC , all Lymph, elevated protein, Gram stain : no organism will empirically start IV Acyclovir will also give a dose of IV Vanco and Ceftriaxone Panculture- Blood, Urine Influenza A and B CXR Pt denies any headache, no dizziness,, no neuro deficit ( pt walking around the room) ID consult - discussed case with dr Her- rec to cont IV Acyclovir a, Ceftriaxone and Vanco- rec to add HSV PCR, DILIA Virus , AFB, Histo (2) Altered mental status Status: Acute may be related to infection - FOOD EXPEDITOR infection , or due to Hydrocephalus may also be related to HIV , as previous admission, pt documented as having dementia 3. Brain Calcifications, with some mild hydrocephalus may be sec to NeuroCysticercosis previous T solium neg (4) Seizure Status: Chronic cont Keppra long hx of seizures prob sec to FOOD EXPEDITOR calcifications with hydrocephalus (5) HIV (human immunodeficiency virus infection) Status: Chronic noncompliant with meds and ff up previous CD4 128 rpt CD4, Viral load (6) DVT prophylaxis Status: Acute SCD - p ambulatory and just had LP
[2017-11-30] MEDS ORDERED: cefTRIAXone 2 GM in Sodium Chloride 0.9% 100 ML IVPB SCH (19:30)
[2017-11-30 20:10] LABS: URINE BILIRUBIN NEGATIVE (NEGATIVE); URINE BLOOD NEGATIVE (NEGATIVE); URINE CLARITY CLEAR (Clear); URINE COLOR YELLOW (YELLOW); URINE GLUCOSE (UA) NEG (Normal); URINE LEUKOCYTE ESTERASE NEG Leu/uL (Negative); URINE PROTEIN 30 mg/dL (NEGATIVE); URINE UROBILINOGEN 0.2-1.0 mg/dL (0.2-1.0)
[2017-11-30] MEDS ORDERED: cefTRIAXone 2 GM in Sodium Chloride 0.9% 100 ML IVPB ONE (21:00)
[2017-12-01 06:36] LABS: BASO % 0.4 % (0.0-2.0); EOS # 0.2 K/uL (0.0-0.7); EOS % 5.1 % (0.0-4.0); LYMPH # 1.3 K/uL (1.0-4.3); LYMPH % 40.1 % (20.0-40.0); MEAN CELL VOLUME 92.4 fl (80.0-94.0); MEAN CORPUSCULAR HEMOGLOBIN 30.7 pg (27.0-31.0); MEAN CORPUSCULAR HGB CONC 33.2 g/dL (33.0-37.0); MEAN PLATELET VOLUME 8.8 fl (7.2-11.7); MONO # 0.4 K/uL (0.0-0.8); NEUT # 1.4 K/uL (1.8-7.0); NEUT % 41.4 % (50.0-75.0); NRBC % 0.4 % (0.0-0.0); RBC 3.9 Mil/uL (4.40-5.90); RED CELL DISTRIBUTION WIDTH 13.5 % (11.5-14.5); WHITE BLOOD COUNT 3.3 K/uL (4.8-10.8)
[2017-12-01 06:50] LABS: ALB/GLOB RATIO 0.9 (1.0-2.1); ALBUMIN 3.5 g/dL (3.5-5.0); ALT/SGPT 49 U/L (21-72); AST/SGOT 50 U/L (17-59); BLOOD UREA NITROGEN 23 mg/dl (9-20); CALCIUM 9.2 mg/dL (8.4-10.2); GFR AFRICAN-AMERICAN > 60; GFR NON-AFRICAN AMERICAN > 60
[2017-12-01] MEDS ORDERED: cefTRIAXone 2 GM in Sodium Chloride 0.9% 100 ML IVPB SCH (09:00)
--- NOTE | 2017-12-01 09:36 | RAD ---
HISTORY: fever COMPARISON: Comparison chest dated 08/23/2017 TECHNIQUE: Chest PA and lateral FINDINGS: LUNGS: Minor bibasilar atelectasis left greater than right; developing left lower lobe infiltrate could be excluded with followup radiographs. PLEURA: No significant pleural effusion identified. No pneumothorax apparent. CARDIOVASCULAR: Normal. OSSEOUS STRUCTURES: Move selection to start of stability at end. VISUALIZED UPPER ABDOMEN: Normal. OTHER FINDINGS: None. IMPRESSION: Minor bibasilar atelectasis left greater than right; developing left lower lobe infiltrate could be excluded with followup radiographs.
[2017-12-01] MEDS ORDERED: Dexamethasone 10 MG in Dextrose 5% In Water 50 ML IV ONE (10:29)
[2017-12-01] MEDS ORDERED: Valproate 500 MG in Sodium Chloride 0.9% 100 ML IVPB ONE (10:30)
[2017-12-01] MEDS ORDERED: Magnesium Sulfate 2 gm/50 ml 2 GM/50 ML BAG IVPB ONE (10:45)
[2017-12-01] MEDS ORDERED: Magnesium Sulfate 2 GM in Sodium Chloride 0.9% 100 ML IVPB ONE (10:45)
--- NOTE | 2017-12-01 10:53 | CP.PCM.PN ---
<Bright Ordaz - Last Filed: 12/01/17 15:58> Subjective - Date & Time of Evaluation Date of Evaluation: 12/01/17 Time of Evaluation: 09:40 - Subjective Subjective: 57 y/o M evaluated and examined by bedside. Pt reports feeling OK, does NOT recall why he is here. Pt tolerating PO, able to ambulate and NO acute events overnight. - Pt is awake, verbal, knows his full name, takes a significant effort to concentrate and answer questions. - Pt reports he moved to this area from [place] a few weeks ago. - Pt is oriented in person. Pt unable to recall today's date or what day it is. - When asked about home medications, pt reports struggles to get his medications. Objective - Vital Signs/Intake and Output Vital Signs (last 24 hours): Temp Pulse Resp BP Pulse Ox 97.7 F 77 20 112/77 96 12/01/17 08:25 12/01/17 08:25 12/01/17 08:25 12/01/17 08:25 12/01/17 08:25 - Medications Medications: Current Medications Dexamethasone (Decadron Inj) 10 mg IVP ONCE ONE Stop: 12/01/17 11:01 Acyclovir 700 mg/ Sodium (Chloride) 100 mls @ 100 mls/hr IVPB Q8 MOR PRN Reason: Protocol Last Admin: 12/01/17 08:44 Dose: Not Given Ceftriaxone Sodium 2 gm/ (Sodium Chloride) 100 mls @ 100 mls/hr IVPB DAILY MOR PRN Reason: Protocol Last Admin: 12/01/17 08:43 Dose: 100 mls/hr Vancomycin HCl 1 gm/ Sodium (Chloride) 250 mls @ 166.667 mls/hr IVPB Q12 MOR PRN Reason: Protocol Last Admin: 11/30/17 22:46 Dose: 166.667 mls/hr Magnesium Sulfate (Magnesium Sulfate 2 Gm/50 Ml Water) 2 gm in 50 mls @ 50 mls/ hr IVPB ONCE ONE PRN Reason: 2 GM/HR Stop: 12/01/17 11:44 Ibuprofen (Motrin Tab) 400 mg PO Q6 PRN PRN Reason: Fever >100.4 F Last Admin: 11/30/17 17:41 Dose: 400 mg Levetiracetam (Keppra) 500 mg PO BID [facility] Last Admin: 12/01/17 08:42 Dose: 500 mg - Labs Labs: 12/01/17 06:00 12/01/17 06:00 PT 11.4 Seconds (9.8-13.1) 11/29/17 15:09 INR 1.0 (0.9-1.2) 11/29/17 15:09 APTT 31.2 Seconds (25.6-37.1) 11/29/17 15:09 - Constitutional Appears: Well, No Acute Distress, Confused - Head Exam Head Exam: NORMAL INSPECTION - Eye Exam Eye Exam: EOMI, Normal appearance - ENT Exam ENT Exam: Mucous Membranes Moist - Neck Exam Neck Exam: Full ROM - Respiratory Exam Respiratory Exam: Clear to Ausculation Bilateral, NORMAL BREATHING PATTERN - Cardiovascular Exam Cardiovascular Exam: REGULAR RHYTHM, +S1, +S2 - GI/Abdominal Exam GI & Abdominal Exam: Soft, Normal Bowel Sounds. absent: Tenderness - Extremities Exam Extremities Exam: Full ROM. absent: Pedal Edema, Tenderness - Neurological Exam Neurological Exam: Alert, Awake Additional comments: Pt awake, alert, oriented to person and place. Pt disoriented in time. (thought today was December 05. Thinks current president is Obdulio Machado) Pt takes several seconds to develop an answer to questions). -EXT: SILT b/l, DTR 2+ b/l, strenght 5/5 b/l. Assessment and Plan - Assessment and Plan (Free Text) Assessment: 57 y/o M with a PMHx of HIV (currently not on HAART), seizures and previous episodes of AMS was admitted for evaluation and management of confusion. Plan: 1. Altered Mental Status. 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 - LP: Gram stain-negative , CSF showed 3 WBC , mostly Lymphocytes. CSF 78- protein. - CSF VDRL and Cryptococcus antigen-NEGATIVE. - Pt extensively worked up 3 months ago, due to prior infection and calcifications, prior consult with ID: no antiparasitics indicated given calcifications. - Currently on IV Acyclovir, Vancomycin and Ceftriaxone. - Neurology on board, Dr Torres. - F/U HSV PCR, DILIA Virus , AFB, Histoplasmosis, Toxoplasmosis, CSF Acid fast. - Consult to Neuro-Surgery as per neurology recommendation. 2. Fever - On 11/30/17-afternoon, temp 101.8 degF. - Unclear etiology. - CXR on 11/30/17 showed minor b/l bibasilar atelectasis, L>R, developing LLL infiltrate. - IV Acyclovir - IV Vancomycin and Ceftriaxone. - Urine CX with multiple species-probable contamination. - CSF Cx shows NO growth after 2 days. - Blood Cx shows NO growth after 24 hours. - Infectology on board, Dr Her. - F/U HSV PCR, DILIA Virus , AFB, Histoplasmosis, Toxoplasmosis, CSF Acid fast. 3. Hx of Seizures - Keppra discontinued by neurology. - Hx of seizures prob sec to PLEASURE CRAFT SAILOR calcifications with hydrocephalus. - Neurology on board, Dr Torres. - S/P 1 dose Dexamethasone Magnessium sulfate. - Currently on Valproate. 4. HIV - F/U CD4 count and viral load - Pt did not want to follow up at HIV clinic upon prior discharge as he stated he was returning to [place]. - previous CD4 128. 5. DVT prophylaxis - SCD for now. - No anticoagulation due to recent LP. <Marlen Gutierres - Last Filed: 12/01/17 16:10> Objective - Vital Signs/Intake and Output Vital Signs (last 24 hours): Temp Pulse Resp BP Pulse Ox 99.4 F 96 H 18 109/67 96 12/01/17 16:03 12/01/17 16:03 12/01/17 16:03 12/01/17 16:03 12/01/17 16:03 - Medications Medications: Current Medications Divalproex Sodium (Rafael Tavarez(*Bid*)) 500 mg PO BID MOR Acyclovir 700 mg/ Sodium (Chloride) 100 mls @ 100 mls/hr IVPB Q8 MOR PRN Reason: Protocol Last Admin: 12/01/17 08:44 Dose: Not Given Ceftriaxone Sodium 2 gm/ (Sodium Chloride) 100 mls @ 100 mls/hr IVPB DAILY MOR PRN Reason: Protocol Last Admin: 12/01/17 08:43 Dose: 100 mls/hr Vancomycin HCl 1 gm/ Sodium (Chloride) 250 mls @ 166.667 mls/hr IVPB Q12 MOR PRN Reason: Protocol Last Admin: 12/01/17 11:25 Dose: 166.667 mls/hr Ibuprofen (Motrin Tab) 400 mg PO Q6 PRN PRN Reason: Fever >100.4 F Last Admin: 11/30/17 17:41 Dose: 400 mg - Labs Labs: 12/01/17 06:00 12/01/17 06:00 PT 11.4 Seconds (9.8-13.1) 11/29/17 15:09 INR 1.0 (0.9-1.2) 11/29/17 15:09 APTT 31.2 Seconds (25.6-37.1) 11/29/17 15:09 Assessment and Plan (1) Fever Status: Acute (2) Altered mental status Status: Acute (3) Seizure Status: Chronic (4) HIV (human immunodeficiency virus infection) Status: Chronic (5) Brain parenchymal calcification Status: Chronic (6) DVT prophylaxis Status: Acute Attending/Attestation - Attestation I have personally seen and examined this patient.: Yes I have fully participated in the care of the patient.: Yes I have reviewed all pertinent clinical information, including history, physical exam and plan: Yes Notes (Text): Fever , AMS in HIV + patient Brain calcifications and Hydrocephalus ? Neurocysticercosis Seizures -empirically on Acyclovir, ceftriaxone and Vanco -ID, Neuro consulted - Neuro rec change AED to Depakote and rec Neurosurgery consult - cont 1:1 for safety
--- NOTE | 2017-12-01 14:36 | CP.PCM.CON ---
History of Present Illness - History of Present Illness History of Present Illness: Neurology Consult Note: Mr. Mejía is a 57-year-old man with a past medical history of HIV, encephalopathy, seizure disorder, non-compliant with medications, who was sent from his [employer] office two days ago for confusion. 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 Neurology was consulted to assist with the management and care. The patient continues to be confused and disoriented. Review of Systems - Review of Systems Systems not reviewed;Unavailable: Altered Mental Status Past Patient History - Tetanus Immunizations Tetanus Immunization: Unknown - Past Medical History & Family History Past Medical History?: Yes - Past Social History Smoking Status: Never Smoked - CARDIAC Hx Cardiac Disorders: No - PULMONARY Hx Respiratory Disorders: No - NEUROLOGICAL Hx Neurological Disorder: Yes Hx Seizures: Yes - HEENT Hx HEENT Problems: No - RENAL Hx Chronic Kidney Disease: No - ENDOCRINE/METABOLIC Hx Endocrine Disorders: No - HEMATOLOGICAL/ONCOLOGICAL Hx Blood Disorders: Yes Hx Human Immunodeficiency Virus (HIV): Yes - INTEGUMENTARY Hx Dermatological Problems: No - MUSCULOSKELETAL/RHEUMATOLOGICAL Hx Musculoskeletal Disorders: Yes Hx Falls: Yes - GASTROINTESTINAL Hx Gastrointestinal Disorders: No - GENITOURINARY/GYNECOLOGICAL Hx Genitourinary Disorders: No - PSYCHIATRIC Hx Psychophysiologic Disorder: No Hx Substance Use: No - SURGICAL HISTORY Hx Surgeries: No - ANESTHESIA Hx Anesthesia: No Hx Anesthesia Reactions: No Meds Allergies/Adverse Reactions: Allergies Allergy/AdvReac Type Severity Reaction Status Date / Time No Known Allergies Allergy Verified 11/29/17 14:14 - Medications Medications: Current Medications Divalproex Sodium (Depakote Dr(*Bid*)) 500 mg PO BID MOR Acyclovir 700 mg/ Sodium (Chloride) 100 mls @ 100 mls/hr IVPB Q8 MOR PRN Reason: Protocol Last Admin: 12/01/17 08:44 Dose: Not Given Ceftriaxone Sodium 2 gm/ (Sodium Chloride) 100 mls @ 100 mls/hr IVPB DAILY MOR PRN Reason: Protocol Last Admin: 12/01/17 08:43 Dose: 100 mls/hr Vancomycin HCl 1 gm/ Sodium (Chloride) 250 mls @ 166.667 mls/hr IVPB Q12 MOR PRN Reason: Protocol Last Admin: 12/01/17 11:25 Dose: 166.667 mls/hr Ibuprofen (Motrin Tab) 400 mg PO Q6 PRN PRN Reason: Fever >100.4 F Last Admin: 11/30/17 17:41 Dose: 400 mg Physical Exam - Constitutional Appears: Well - Head Exam Head Exam: ATRAUMATIC, NORMAL INSPECTION, NORMOCEPHALIC - Eye Exam Eye Exam: EOMI, Normal appearance, PERRL Pupil Exam: NORMAL ACCOMODATION, PERRL - ENT Exam ENT Exam: Mucous Membranes Moist, Normal Exam - Neck Exam Neck exam: Positive for: Normal Inspection - Cardiovascular Exam Cardiovascular Exam: REGULAR RHYTHM, +S1, +S2 - GI/Abdominal Exam GI & Abdominal Exam: Normal Bowel Sounds, Soft. absent: Tenderness - Rectal Exam Rectal Exam: Deferred - Neurological Exam Neurological exam: Abnormal Gait, Altered, CN II-XII Intact Additional comments: Poor recall, poor attention, poor fund of knowledge. Magnetic gait, moves all extremities equally, reflexes are brisk. sensation is intact to LT/P. Plantar responses are equivocal. Results - Vital Signs Recent Vital Signs: Last Vital Signs Temp 97.7 F 12/01/17 08:25 Pulse 77 12/01/17 08:25 Resp 20 12/01/17 08:25 BP 112/77 12/01/17 08:25 Pulse Ox 96 12/01/17 08:25 - Labs Result Diagrams: 12/01/17 06:00 12/01/17 06:00 Labs: Laboratory Results - last 24 hr 11/29/17 11/30/17 11/30/17 18:30 19:15 19:37 WBC RBC Hgb Hct MCV MCH MCHC RDW Plt Count MPV Neut % (Auto) Lymph % (Auto) Schley % (Auto) Eos % (Auto) Baso % (Auto) Neut # (Auto) Lymph # (Auto) Schley # (Auto) Eos # (Auto) Baso # (Auto) Sodium Potassium Chloride Carbon Dioxide Anion Gap BUN Creatinine Est GFR ( Amer) Est GFR (Non-Af Amer) Random Glucose Calcium Total Bilirubin AST ALT Alkaline Phosphatase Total Protein Albumin Globulin Albumin/Globulin Ratio Urine Color Yellow Urine Clarity Clear Urine pH 5.0 Ur Specific Bentley 1.028 Urine Protein 30 Urine Glucose (UA) Neg Urine Ketones Negative Urine Blood Negative Urine Nitrate Negative Urine Bilirubin Negative Urine Urobilinogen 0.2-1.0 Ur Leukocyte Esterase Neg Urine RBC (Auto) 3 Urine Microscopic WBC 1 CSF VDRL Nonreactive Influenza Typ A,B (EIA) Negative for flu a/b 12/01/17 12/01/17 06:00 06:00 WBC 3.3 L RBC 3.90 L Hgb 12.0 Hct 36.1 MCV 92.4 MCH 30.7 MCHC 33.2 RDW 13.5 Plt Count 121 L MPV 8.8 Neut % (Auto) 41.4 L Lymph % (Auto) 40.1 H Schley % (Auto) 13.0 H Eos % (Auto) 5.1 H Baso % (Auto) 0.4 Neut # (Auto) 1.4 L Lymph # (Auto) 1.3 Schley # (Auto) 0.4 Eos # (Auto) 0.2 Baso # (Auto) 0.0 Sodium 140 Potassium 4.0 Chloride 102 Carbon Dioxide 30 Anion Gap 12 BUN 23 H Creatinine 1.0 Est GFR ( Amer) > 60 Est GFR (Non-Af Amer) > 60 Random Glucose 91 Calcium 9.2 Total Bilirubin 0.4 AST 50 ALT 49 Alkaline Phosphatase 69 Total Protein 7.6 Albumin 3.5 Globulin 4.1 H Albumin/Globulin Ratio 0.9 L Urine Color Urine Clarity Urine pH Ur Specific Bentley Urine Protein Urine Glucose (UA) Urine Ketones Urine Blood Urine Nitrate Urine Bilirubin Urine Urobilinogen Ur Leukocyte Esterase Urine RBC (Auto) Urine Microscopic WBC CSF VDRL Influenza Typ A,B (EIA) Assessment & Plan (1) Altered mental status Assessment and Plan: This is chronic and may be due to HIV encephalopathy, or as a result of chronic hydrocephalus. Continue current medications and treat underlying condition. Status: Acute (2) Generalized seizure Assessment and Plan: Will start Depakote 500 mg BID for seizure prophylaxis. The patient is also complaining of headache and this may help both conditions. Status: Acute (3) Brain parenchymal calcification Assessment and Plan: Will order MRI of the brain for further evaluation and to better characterize these lesions. ID consultation is recommended. Status: Chronic (4) Hydrocephalus Assessment and Plan: MRI of the brain with and without contrast will be helpful to evaluate for the underlying cause and to see the degree of acute versus chronic hydrocephalus. Neurosurgery consultation is recommended. Thank you. Status: Acute
--- NOTE | 2017-12-01 14:51 | CP.PCM.CON ---
History of Present Illness - History of Present Illness History of Present Illness: Infectious Disease Consultation Note- asked to see this patient at the request of Hospitalist for fever and confusion in an HIV positive male. HPI- Pt. renayon to me from 1 previous admission in 07/2017 one visit. History obtained from the hospitalist and the medical chart as the patietn is somewhat confused. 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 On admission pt. CT brain was reported as Hydrocephalus and multiple areas of microcalcifications ? concerning for neurocysticersoiss as per radiologist's reading. Pt. has also been noncompliant with his seizure meds. LP done in ED for fever and confusion and wbc- 3 only and almost all ymphocytes , normal glucose and elevated protein . Pt. empirically started on IV acyclovir and vanco and ceftriaxone pending CSF cx results. last admission in 07/2017 tenia solium AB - negative. pt. awake currently and denies any BARRETO or any chills but is somewhat disoriented . Review of Systems - Review of Systems Review of Systems: ROS- somewhat confused and disoriented but denies any BARRETO, denies any neck pain , denies any fever or chills. Past Patient History - Tetanus Immunizations Tetanus Immunization: Unknown - Past Medical History & Family History Past Medical History?: Yes - Past Social History Smoking Status: Never Smoked - CARDIAC Hx Cardiac Disorders: No - PULMONARY Hx Respiratory Disorders: No - NEUROLOGICAL Hx Neurological Disorder: Yes Hx Seizures: Yes - HEENT Hx HEENT Problems: No - RENAL Hx Chronic Kidney Disease: No - ENDOCRINE/METABOLIC Hx Endocrine Disorders: No - HEMATOLOGICAL/ONCOLOGICAL Hx Blood Disorders: Yes Hx AIDS: Yes Hx Human Immunodeficiency Virus (HIV): Yes - INTEGUMENTARY Hx Dermatological Problems: No - MUSCULOSKELETAL/RHEUMATOLOGICAL Hx Musculoskeletal Disorders: Yes Hx Falls: Yes - GASTROINTESTINAL Hx Gastrointestinal Disorders: No - GENITOURINARY/GYNECOLOGICAL Hx Genitourinary Disorders: No - PSYCHIATRIC Hx Psychophysiologic Disorder: No Hx Substance Use: No - SURGICAL HISTORY Hx Surgeries: No - ANESTHESIA Hx Anesthesia: No Hx Anesthesia Reactions: No Meds Allergies/Adverse Reactions: Allergies Allergy/AdvReac Type Severity Reaction Status Date / Time No Known Allergies Allergy Verified 11/29/17 14:14 - Medications Medications: Current Medications Divalproex Sodium (Depakote Dr(*Bid*)) 500 mg PO BID MOR Acyclovir 700 mg/ Sodium (Chloride) 100 mls @ 100 mls/hr IVPB Q8 MOR PRN Reason: Protocol Last Admin: 12/01/17 08:44 Dose: Not Given Ceftriaxone Sodium 2 gm/ (Sodium Chloride) 100 mls @ 100 mls/hr IVPB DAILY MOR PRN Reason: Protocol Last Admin: 12/01/17 08:43 Dose: 100 mls/hr Vancomycin HCl 1 gm/ Sodium (Chloride) 250 mls @ 166.667 mls/hr IVPB Q12 MOR PRN Reason: Protocol Last Admin: 12/01/17 11:25 Dose: 166.667 mls/hr Ibuprofen (Motrin Tab) 400 mg PO Q6 PRN PRN Reason: Fever >100.4 F Last Admin: 11/30/17 17:41 Dose: 400 mg Physical Exam - Constitutional Appears: No Acute Distress, Confused - Head Exam Head Exam: ATRAUMATIC - Eye Exam Eye Exam: PERRL - ENT Exam ENT Exam: Normal Oropharynx - Neck Exam Neck exam: Positive for: Full Rom Additional comments: supple - Respiratory Exam Respiratory Exam: Clear to Auscultation Bilateral, NORMAL BREATHING PATTERN - Cardiovascular Exam Cardiovascular Exam: RRR, +S1, +S2 - GI/Abdominal Exam GI & Abdominal Exam: Normal Bowel Sounds, Soft Additional comments: NT, ND - Extremities Exam Extremities exam: Positive for: normal inspection - Neurological Exam Additional comments: awake but dioriented Results - Vital Signs Recent Vital Signs: Last Vital Signs Temp 97.7 F 12/01/17 08:25 Pulse 77 12/01/17 08:25 Resp 20 12/01/17 08:25 BP 112/77 12/01/17 08:25 Pulse Ox 96 12/01/17 08:25 - Labs Result Diagrams: 12/02/17 12:42 12/01/17 06:00 Labs: Laboratory Results - last 24 hr 11/29/17 11/30/17 11/30/17 18:30 19:15 19:37 WBC RBC Hgb Hct MCV MCH MCHC RDW Plt Count MPV Neut % (Auto) Lymph % (Auto) Clinch % (Auto) Eos % (Auto) Baso % (Auto) Neut # (Auto) Lymph # (Auto) Clinch # (Auto) Eos # (Auto) Baso # (Auto) Sodium Potassium Chloride Carbon Dioxide Anion Gap BUN Creatinine Est GFR ( Amer) Est GFR (Non-Af Amer) Random Glucose Calcium Total Bilirubin AST ALT Alkaline Phosphatase Total Protein Albumin Globulin Albumin/Globulin Ratio Urine Color Yellow Urine Clarity Clear Urine pH 5.0 Ur Specific [place] 1.028 Urine Protein 30 Urine Glucose (UA) Neg Urine Ketones Negative Urine Blood Negative Urine Nitrate Negative Urine Bilirubin Negative Urine Urobilinogen 0.2-1.0 Ur Leukocyte Esterase Neg Urine RBC (Auto) 3 Urine Microscopic WBC 1 CSF VDRL Nonreactive Influenza Typ A,B (EIA) Negative for flu a/b 12/01/17 12/01/17 06:00 06:00 WBC 3.3 L RBC 3.90 L Hgb 12.0 Hct 36.1 MCV 92.4 MCH 30.7 MCHC 33.2 RDW 13.5 Plt Count 121 L MPV 8.8 Neut % (Auto) 41.4 L Lymph % (Auto) 40.1 H Clinch % (Auto) 13.0 H Eos % (Auto) 5.1 H Baso % (Auto) 0.4 Neut # (Auto) 1.4 L Lymph # (Auto) 1.3 Clinch # (Auto) 0.4 Eos # (Auto) 0.2 Baso # (Auto) 0.0 Sodium 140 Potassium 4.0 Chloride 102 Carbon Dioxide 30 Anion Gap 12 BUN 23 H Creatinine 1.0 Est GFR ( Amer) > 60 Est GFR (Non-Af Amer) > 60 Random Glucose 91 Calcium 9.2 Total Bilirubin 0.4 AST 50 ALT 49 Alkaline Phosphatase 69 Total Protein 7.6 Albumin 3.5 Globulin 4.1 H Albumin/Globulin Ratio 0.9 L Urine Color Urine Clarity Urine pH Ur Specific [place] Urine Protein Urine Glucose (UA) Urine Ketones Urine Blood Urine Nitrate Urine Bilirubin Urine Urobilinogen Ur Leukocyte Esterase Urine RBC (Auto) Urine Microscopic WBC CSF VDRL Influenza Typ A,B (EIA) Laboratory Results - last 72 hr 11/29/17 11/29/17 11/29/17 15:09 15:09 15:09 WBC 4.1 L RBC 4.43 Hgb 13.9 Hct 41.0 MCV 92.5 MCH 31.3 H MCHC 33.8 RDW 13.5 Plt Count 196 MPV 10.2 Neut % (Auto) 52.4 Lymph % (Auto) 33.2 Clinch % (Auto) 11.1 H Eos % (Auto) 2.3 Baso % (Auto) 1.0 Neut # (Auto) 2.2 Lymph # (Auto) 1.4 Clinch # (Auto) 0.5 Eos # (Auto) 0.1 Baso # (Auto) 0.0 PT 11.4 INR 1.0 APTT 31.2 Sodium Potassium Chloride Carbon Dioxide Anion Gap BUN Creatinine Est GFR ( Amer) Est GFR (Non-Af Amer) Random Glucose Lactic Acid 0.9 Calcium Total Bilirubin AST ALT Alkaline Phosphatase Ammonia Troponin I Total Protein Albumin Globulin Albumin/Globulin Ratio Procalcitonin Urine Color Urine Clarity Urine pH Ur Specific [place] Urine Protein Urine Glucose (UA) Urine Ketones Urine Blood Urine Nitrate Urine Bilirubin Urine Urobilinogen Ur Leukocyte Esterase Urine RBC (Auto) Urine Microscopic WBC Ur Squamous Epith Cells Urine Bacteria Hyaline Casts Fluid Type CSF Volume CSF Appearance CSF WBC CSF RBC CSF Total Cell Counted CSF Neutrophils CSF Lymphocytes CSF Monos/Macrophages CSF Comment CSF Glucose CSF Total Protein CSF VDRL CSF Cryptococcus Ag Vancomycin Trough Urine Opiates Screen Urine Methadone Screen Ur Barbiturates Screen Ur Phencyclidine Scrn Ur Amphetamines Screen U Benzodiazepines Scrn U Oth Cocaine Metabols U Cannabinoids Screen Alcohol, Quantitative Influenza Typ A,B (EIA) 11/29/17 11/29/17 11/29/17 15:57 15:57 17:10 WBC RBC Hgb Hct MCV MCH MCHC RDW Plt Count MPV Neut % (Auto) Lymph % (Auto) Clinch % (Auto) Eos % (Auto) Baso % (Auto) Neut # (Auto) Lymph # (Auto) Clinch # (Auto) Eos # (Auto) Baso # (Auto) PT INR APTT Sodium 141 Potassium 4.4 Chloride 104 Carbon Dioxide 25 Anion Gap 16 BUN 23 H Creatinine 0.9 Est GFR ( Amer) > 60 Est GFR (Non-Af Amer) > 60 Random Glucose 89 Lactic Acid Calcium 9.4 Total Bilirubin 0.7 AST 66 H D ALT 60 Alkaline Phosphatase 89 Ammonia 28 Troponin I < 0.0120 Total Protein 9.0 H Albumin 4.3 Globulin 4.7 H Albumin/Globulin Ratio 0.9 L Procalcitonin Urine Color Urine Clarity Urine pH Ur Specific [place] Urine Protein Urine Glucose (UA) Urine Ketones Urine Blood Urine Nitrate Urine Bilirubin Urine Urobilinogen Ur Leukocyte Esterase Urine RBC (Auto) Urine Microscopic WBC Ur Squamous Epith Cells Urine Bacteria Hyaline Casts Fluid Type CSF Volume CSF Appearance CSF WBC CSF RBC CSF Total Cell Counted CSF Neutrophils CSF Lymphocytes CSF Monos/Macrophages CSF Comment CSF Glucose CSF Total Protein CSF VDRL CSF Cryptococcus Ag Vancomycin Trough Urine Opiates Screen Urine Methadone Screen Ur Barbiturates Screen Ur Phencyclidine Scrn Ur Amphetamines Screen U Benzodiazepines Scrn U Oth Cocaine Metabols U Cannabinoids Screen Alcohol, Quantitative < 10 Influenza Typ A,B (EIA) 11/29/17 11/29/17 11/29/17 18:30 18:30 18:30 WBC RBC Hgb Hct MCV MCH MCHC RDW Plt Count MPV Neut % (Auto) Lymph % (Auto) Clinch % (Auto) Eos % (Auto) Baso % (Auto) Neut # (Auto) Lymph # (Auto) Clinch # (Auto) Eos # (Auto) Baso # (Auto) PT INR APTT Sodium Potassium Chloride Carbon Dioxide Anion Gap BUN Creatinine Est GFR ( Amer) Est GFR (Non-Af Amer) Random Glucose Lactic Acid Calcium Total Bilirubin AST ALT Alkaline Phosphatase Ammonia Troponin I Total Protein Albumin Globulin Albumin/Globulin Ratio Procalcitonin Urine Color Urine Clarity Urine pH Ur Specific [place] Urine Protein Urine Glucose (UA) Urine Ketones Urine Blood Urine Nitrate Urine Bilirubin Urine Urobilinogen Ur Leukocyte Esterase Urine RBC (Auto) Urine Microscopic WBC Ur Squamous Epith Cells Urine Bacteria Hyaline Casts Fluid Type Spinal fluid CSF Volume 2 H CSF Appearance Clear/colorless CSF WBC 3.0 CSF RBC 1.0 H CSF Total Cell Counted 3 H CSF Neutrophils 0 CSF Lymphocytes 3.0 H CSF Monos/Macrophages 0 CSF Comment CSF Glucose 48 CSF Total Protein 78.0 H CSF VDRL CSF Cryptococcus Ag Vancomycin Trough Urine Opiates Screen Urine Methadone Screen Ur Barbiturates Screen Ur Phencyclidine Scrn Ur Amphetamines Screen U Benzodiazepines Scrn U Oth Cocaine Metabols U Cannabinoids Screen Alcohol, Quantitative Influenza Typ A,B (EIA) 11/29/17 11/29/17 11/29/17 18:30 18:30 19:19 WBC RBC Hgb Hct MCV MCH MCHC RDW Plt Count MPV Neut % (Auto) Lymph % (Auto) Clinch % (Auto) Eos % (Auto) Baso % (Auto) Neut # (Auto) Lymph # (Auto) Clinch # (Auto) Eos # (Auto) Baso # (Auto) PT INR APTT Sodium Potassium Chloride Carbon Dioxide Anion Gap BUN Creatinine Est GFR ( Amer) Est GFR (Non-Af Amer) Random Glucose Lactic Acid Calcium Total Bilirubin AST ALT Alkaline Phosphatase Ammonia Troponin I Total Protein Albumin Globulin Albumin/Globulin Ratio Procalcitonin Urine Color Urine Clarity Urine pH Ur Specific [place] Urine Protein Urine Glucose (UA) Urine Ketones Urine Blood Urine Nitrate Urine Bilirubin Urine Urobilinogen Ur Leukocyte Esterase Urine RBC (Auto) Urine Microscopic WBC Ur Squamous Epith Cells Urine Bacteria Hyaline Casts Fluid Type CSF Volume CSF Appearance CSF WBC CSF RBC CSF Total Cell Counted CSF Neutrophils CSF Lymphocytes CSF Monos/Macrophages CSF Comment CSF Glucose CSF Total Protein CSF VDRL Nonreactive CSF Cryptococcus Ag Negative Vancomycin Trough Urine Opiates Screen Negative Urine Methadone Screen Negative Ur Barbiturates Screen Negative Ur Phencyclidine Scrn Negative Ur Amphetamines Screen Negative U Benzodiazepines Scrn Negative U Oth Cocaine Metabols Negative U Cannabinoids Screen Negative Alcohol, Quantitative Influenza Typ A,B (EIA) 11/29/17 11/30/17 11/30/17 19:45 05:50 05:50 WBC 3.9 L RBC 4.17 L Hgb 12.6 Hct 39.1 MCV 93.7 MCH 30.2 MCHC 32.2 L RDW 13.2 Plt Count 133 MPV 9.7 Neut % (Auto) 37.0 L Lymph % (Auto) 49.4 H Clinch % (Auto) 10.8 H Eos % (Auto) 2.3 Baso % (Auto) 0.5 Neut # (Auto) 1.5 L Lymph # (Auto) 2.0 Clinch # (Auto) 0.4 Eos # (Auto) 0.1 Baso # (Auto) 0.0 PT INR APTT Sodium 139 Potassium 4.1 Chloride 101 Carbon Dioxide 27 Anion Gap 15 BUN 24 H Creatinine 1.1 Est GFR ( Amer) > 60 Est GFR (Non-Af Amer) > 60 Random Glucose 93 Lactic Acid Calcium 9.1 Total Bilirubin AST ALT Alkaline Phosphatase Ammonia Troponin I Total Protein Albumin Globulin Albumin/Globulin Ratio Procalcitonin Urine Color [place]elie Urine Clarity Slighty-cloudy Urine pH 5.0 Ur Specific [place] 1.033 H Urine Protein 100 Urine Glucose (UA) Neg Urine Ketones 20 Urine Blood Negative Urine Nitrate Negative Urine Bilirubin Negative Urine Urobilinogen 0.2-1.0 Ur Leukocyte Esterase Neg Urine RBC (Auto) 2 Urine Microscopic WBC 2 Ur Squamous Epith Cells 2 Urine Bacteria Rare Hyaline Casts 0-2 Fluid Type CSF Volume CSF Appearance CSF WBC CSF RBC CSF Total Cell Counted CSF Neutrophils CSF Lymphocytes CSF Monos/Macrophages CSF Comment CSF Glucose CSF Total Protein CSF VDRL CSF Cryptococcus Ag Vancomycin Trough Urine Opiates Screen Urine Methadone Screen Ur Barbiturates Screen Ur Phencyclidine Scrn Ur Amphetamines Screen U Benzodiazepines Scrn U Oth Cocaine Metabols U Cannabinoids Screen Alcohol, Quantitative Influenza Typ A,B (EIA) 11/30/17 11/30/17 11/30/17 19:00 19:15 19:37 WBC RBC Hgb Hct MCV MCH MCHC RDW Plt Count MPV Neut % (Auto) Lymph % (Auto) Clinch % (Auto) Eos % (Auto) Baso % (Auto) Neut # (Auto) Lymph # (Auto) Clinch # (Auto) Eos # (Auto) Baso # (Auto) PT INR APTT Sodium Potassium Chloride Carbon Dioxide Anion Gap BUN Creatinine Est GFR ( Amer) Est GFR (Non-Af Amer) Random Glucose Lactic Acid Calcium Total Bilirubin AST ALT Alkaline Phosphatase Ammonia Troponin I Total Protein Albumin Globulin Albumin/Globulin Ratio Procalcitonin < 0.05 L Urine Color Yellow Urine Clarity Clear Urine pH 5.0 Ur Specific [place] 1.028 Urine Protein 30 Urine Glucose (UA) Neg Urine Ketones Negative Urine Blood Negative Urine Nitrate Negative Urine Bilirubin Negative Urine Urobilinogen 0.2-1.0 Ur Leukocyte Esterase Neg Urine RBC (Auto) 3 Urine Microscopic WBC 1 Ur Squamous Epith Cells Urine Bacteria Hyaline Casts Fluid Type CSF Volume CSF Appearance CSF WBC CSF RBC CSF Total Cell Counted CSF Neutrophils CSF Lymphocytes CSF Monos/Macrophages CSF Comment CSF Glucose CSF Total Protein CSF VDRL CSF Cryptococcus Ag Vancomycin Trough Urine Opiates Screen Urine Methadone Screen Ur Barbiturates Screen Ur Phencyclidine Scrn Ur Amphetamines Screen U Benzodiazepines Scrn U Oth Cocaine Metabols U Cannabinoids Screen Alcohol, Quantitative Influenza Typ A,B (EIA) Negative for flu a/b 12/01/17 12/01/17 12/01/17 06:00 06:00 20:32 WBC 3.3 L RBC 3.90 L Hgb 12.0 Hct 36.1 MCV 92.4 MCH 30.7 MCHC 33.2 RDW 13.5 Plt Count 121 L MPV 8.8 Neut % (Auto) 41.4 L Lymph % (Auto) 40.1 H Clinch % (Auto) 13.0 H Eos % (Auto) 5.1 H Baso % (Auto) 0.4 Neut # (Auto) 1.4 L Lymph # (Auto) 1.3 Clinch # (Auto) 0.4 Eos # (Auto) 0.2 Baso # (Auto) 0.0 PT INR APTT Sodium 140 Potassium 4.0 Chloride 102 Carbon Dioxide 30 Anion Gap 12 BUN 23 H Creatinine 1.0 Est GFR ( Amer) > 60 Est GFR (Non-Af Amer) > 60 Random Glucose 91 Lactic Acid Calcium 9.2 Total Bilirubin 0.4 AST 50 ALT 49 Alkaline Phosphatase 69 Ammonia Troponin I Total Protein 7.6 Albumin 3.5 Globulin 4.1 H Albumin/Globulin Ratio 0.9 L Procalcitonin Urine Color Urine Clarity Urine pH Ur Specific [place] Urine Protein Urine Glucose (UA) Urine Ketones Urine Blood Urine Nitrate Urine Bilirubin Urine Urobilinogen Ur Leukocyte Esterase Urine RBC (Auto) Urine Microscopic WBC Ur Squamous Epith Cells Urine Bacteria Hyaline Casts Fluid Type CSF Volume CSF Appearance CSF WBC CSF RBC CSF Total Cell Counted CSF Neutrophils CSF Lymphocytes CSF Monos/Macrophages CSF Comment CSF Glucose CSF Total Protein CSF VDRL CSF Cryptococcus Ag Vancomycin Trough 13.0 H Urine Opiates Screen Urine Methadone Screen Ur Barbiturates Screen Ur Phencyclidine Scrn Ur Amphetamines Screen U Benzodiazepines Scrn U Oth Cocaine Metabols U Cannabinoids Screen Alcohol, Quantitative Influenza Typ A,B (EIA) Microbiology 11/30/17 19:30 Blood Blood Culture - Preliminary NO GROWTH AFTER 24 HOURS 11/30/17 19:00 Blood Blood Culture - Preliminary NO GROWTH AFTER 24 HOURS 11/29/17 15:18 Blood-Venous Blood Culture - Preliminary NO GROWTH AFTER 48 HOURS 11/29/17 15:00 Blood-Venous Blood Culture - Preliminary NO GROWTH AFTER 48 HOURS 11/29/17 18:00 Cerebral Spinal Fluid Gram Stain - Final 11/29/17 18:30 Cerebral Spinal Fluid Gram Stain - Final 11/29/17 18:30 Cerebral Spinal Fluid CSF Culture - Preliminary NO GROWTH AFTER 2 DAYS 11/29/17 19:19 Urine,Clean Catch Urine Culture - Final 10-50,000 CFU/ML. MULTIPLE SPECIES. PROBABLE CONTAMINATION. Accession No. : [id number] Patient Name / ID : KATHRYN CASANOVA / [id number] Exam Date : 11/29/2017 15:45:14 ( Approved ) Study Comment : Sex / Age : M / 57Y Creator : Jose Luis Gregory MD Dictator : Parach[employer] Accessories Attacher : Loom Technician : Jose Luis Gregory MD Approver2 : Report Date : 11/29/2017 16:25:35 My Comment : PROCEDURE: CT HEAD WITHOUT CONTRAST. HISTORY: AMS. COMPARISON: None available. TECHNIQUE: Axial computed tomography images were obtained through the head/brain without intravenous contrast. Radiation dose: Total exam DLP = 880.99 mGy-cm. This CT exam was performed using one or more of the following dose reduction techniques: Automated exposure control, adjustment of the mA and/or kV according to patient size, and/or use of iterative reconstruction technique. FINDINGS: HEMORRHAGE: No acute parenchymal, subarachnoid or extra-axial hemorrhage. BRAIN: Re- demonstrated are multiple tiny at calcifications scattered throughout the subarachnoid spaces consistent with an neurocysticercosis. Clinical correlation recommended. . Note the largest of these calcifications is again seen in the right posterior frontal parietal subarachnoid space at the vertex. Also re- demonstrated are moderate to significant diffuse/ confluent low- attenuation changes that extend peripherally into the deep and subcortical white matter of both cerebral hemispheres. Changes may represent chronic -end- stage gliosis of prolonged hydrocephalus and/or sequela of small vessel disease. . 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 VENTRICLES: Marked dilatation of the 3rd and lateral ventricles with relatively normal- appearing 4th ventricle. Findings suggest chronic compensated obstructive hydrocephalus with obstruction at the level of the aqued[place] CALVARIUM: Unremarkable. PARANASAL SINUSES: Unremarkable as visualized. No significant inflammatory changes. MASTOID AIR CELLS: Unremarkable as visualized. No inflammatory changes. OTHER FINDINGS: None. IMPRESSION: No interval change in the appearance of the brain. Re- demonstrated are multiple tiny calcific densities scattered throughout the subarachnoid spaces consistent with prior exposure to a narrow cysticercosis. Marked dilatation 3rd and lateral ventricles with relatively normal-appearing 4th ventricle. 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 Low-attenuation white matter changes could represent some combination of end-stage gliosis related to prolonged hydrocephalus however concomitant chronic sequela of small vessel disease may contribute. 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 No evidence of acute intracranial hemorrhage.Accession No. : [id number] Patient Name / ID : KATHRYN CASANOVA / [id number] Exam Date : 11/30/2017 19:37:28 ( Approved ) Study Comment : Sex / Age : M / 57Y Creator : Jose Luis Gregory MD Dictator : Jose Luis Gregory MD Parachute Accessories Attacher : Loom Technician : Jose Luis Gregory MD Approver2 : Report Date : 12/01/2017 09:30:05 My Comment : HISTORY: fever COMPARISON: Comparison chest dated 08/23/2017 TECHNIQUE: Chest PA and lateral FINDINGS: LUNGS: Minor bibasilar atelectasis left greater than right; developing left lower lobe infiltrate could be excluded with followup radiographs. PLEURA: No significant pleural effusion identified. No pneumothorax apparent. CARDIOVASCULAR: Normal. OSSEOUS STRUCTURES: Move selection to start of stability at end. VISUALIZED UPPER ABDOMEN: Normal. OTHER FINDINGS: None. IMPRESSION: Minor bibasilar atelectasis left greater than right; developing left lower lobe infiltrate could be excluded with followup radiographs. Assessment & Plan (1) Altered mental status Status: Acute (2) Fever Status: Acute (3) Hydrocephalus Status: Acute (4) Brain parenchymal calcification Status: Chronic (5) Generalized seizure Status: Acute - Assessment and Plan (Free Text) Assessment: A/P- 57 year old male with hIV ( noncomplaint ith his medds), seizure disorder and microcalcifications on brain CT unchanged from previous Brain CT in 07/2018 and hydrocephalus admitted with confusion and fever. afebrile today but had fever jesse dmission. remains disoriented. CSF- gra staina nd ccx negative only 3 wbc and all 3 are lymphocytes , normal glucose, elevated protein. csf crypt ag and VDRL - negative last admission tenia solium ab- negative toxo IGG- pos CMV IGG- pos plan- advise to continue with IV acyclovir for ? aseptic encephalitis pending CSF HSV PCR result. microcalcifications are old and calcified as per radiologist' report and since tenia solium Ab os negative - It's unlikely to be neurocysticercosis and initiating antiparasitic at times can cause more seizures and inflmmation specially if the lesions are calcified. Hydroephalus should be evaluated by Neurosurgery . check toxo IGG in CSF as well. can d/c ceftriaxone and vanco. await brain MRI result . check CD4 and HIV Vl as well. await CSF AFB and DILIA virus as well. continue antiseizure meds as per neuro. Thank you for allowing met o take part in the care of this patient.
[2017-12-01] MEDS: Divalproex 500 mg DR(BID formulation) PO SCH (16:07)
[2017-12-01] MEDS ORDERED: Gadodiamide 287 MG/ML VIAL (15ML) IV ONE (17:24)
[2017-12-02] MEDS: Divalproex 500 mg DR(BID formulation) PO SCH ×2 (09:28→18:24)
--- NOTE | 2017-12-02 11:36 | CP.PCM.CON ---
History of Present Illness - History of Present Illness History of Present Illness: dictated chronic hydrocephalus may benefit from [employer] shunt await MRI will d/w family Past Patient History - Tetanus Immunizations Tetanus Immunization: Unknown - Past Medical History & Family History Past Medical History?: Yes - Past Social History Smoking Status: Never Smoked - CARDIAC Hx Cardiac Disorders: No - PULMONARY Hx Respiratory Disorders: No - NEUROLOGICAL Hx Neurological Disorder: Yes Hx Seizures: Yes - HEENT Hx HEENT Problems: No - RENAL Hx Chronic Kidney Disease: No - ENDOCRINE/METABOLIC Hx Endocrine Disorders: No - HEMATOLOGICAL/ONCOLOGICAL Hx Blood Disorders: Yes Hx AIDS: Yes Hx Human Immunodeficiency Virus (HIV): Yes - INTEGUMENTARY Hx Dermatological Problems: No - MUSCULOSKELETAL/RHEUMATOLOGICAL Hx Musculoskeletal Disorders: Yes Hx Falls: Yes - GASTROINTESTINAL Hx Gastrointestinal Disorders: No - GENITOURINARY/GYNECOLOGICAL Hx Genitourinary Disorders: No - PSYCHIATRIC Hx Psychophysiologic Disorder: No Hx Substance Use: No - SURGICAL HISTORY Hx Surgeries: No - ANESTHESIA Hx Anesthesia: No Hx Anesthesia Reactions: No Meds Allergies/Adverse Reactions: Allergies Allergy/AdvReac Type Severity Reaction Status Date / Time No Known Allergies Allergy Verified 11/29/17 14:14 - Medications Medications: Current Medications Divalproex Sodium (Depakote Dr(*Bid*)) 500 mg PO BID [facility] Last Admin: 12/02/17 09:28 Dose: 500 mg Acyclovir 700 mg/ Sodium (Chloride) 100 mls @ 100 mls/hr IVPB Q8 MOR PRN Reason: Protocol Last Admin: 12/02/17 00:15 Dose: 100 mls/hr Ibuprofen (Motrin Tab) 400 mg PO Q6 PRN PRN Reason: Fever >100.4 F Last Admin: 11/30/17 17:41 Dose: 400 mg Results - Vital Signs Recent Vital Signs: Last Vital Signs Temp 97.9 F 12/02/17 08:59 Pulse 93 H 12/02/17 08:59 Resp 20 12/02/17 08:59 BP 112/65 12/02/17 08:59 Pulse Ox 99 12/02/17 08:59 - Labs Result Diagrams: 12/01/17 06:00 12/01/17 06:00 Labs: Laboratory Results - last 24 hr 11/30/17 12/01/17 19:00 20:32 Procalcitonin < 0.05 L Vancomycin Trough 13.0 H
[2017-12-02 12:44] LABS: HEMOGLOBIN 11.9 g/dL (12.0-18.0); MEAN CELL VOLUME 93.1 fl (80.0-94.0); MEAN CORPUSCULAR HEMOGLOBIN 31.4 pg (27.0-31.0); MEAN CORPUSCULAR HGB CONC 33.7 g/dL (33.0-37.0); RBC 3.78 Mil/uL (4.40-5.90); RED CELL DISTRIBUTION WIDTH 13.2 % (11.5-14.5); WHITE BLOOD COUNT 4.6 K/uL (4.8-10.8)
--- NOTE | 2017-12-02 13:26 | CP.PCM.PN ---
Subjective - Date & Time of Evaluation Date of Evaluation: 12/02/17 Time of Evaluation: 10:00 - Subjective Subjective: 57 y/o M evaluated and examined by bedside. Pt is cooperative and reports feeling better than yesterday. Pt is awake, afebrile, tolerating PO, was restless yesterday and Ativan was administered. Pt takes his time to answer questions. Pt is interested in establishing primary care with our clinic and to initiate chronic pharmacotherapy. - Pt recall he is from [facility], lived in [place], wants to get a job here in [place] and continue with his life. Pt currently oriented in person, place and time; states being interested in starting crhonic treatment. Objective - Vital Signs/Intake and Output Vital Signs (last 24 hours): Temp Pulse Resp BP Pulse Ox 97.9 F 93 H 20 112/65 99 12/02/17 08:59 12/02/17 08:59 12/02/17 08:59 12/02/17 08:59 12/02/17 08:59 - Medications Medications: Current Medications Divalproex Sodium (Depakote Dr(*Bid*)) 500 mg PO BID [facility] Last Admin: 12/02/17 09:28 Dose: 500 mg Acyclovir 700 mg/ Sodium (Chloride) 100 mls @ 100 mls/hr IVPB Q8 MOR PRN Reason: Protocol Last Admin: 12/02/17 11:44 Dose: 100 mls/hr Ibuprofen (Motrin Tab) 400 mg PO Q6 PRN PRN Reason: Fever >100.4 F Last Admin: 11/30/17 17:41 Dose: 400 mg - Labs Labs: 12/02/17 12:42 12/01/17 06:00 PT 11.4 Seconds (9.8-13.1) 11/29/17 15:09 INR 1.0 (0.9-1.2) 11/29/17 15:09 APTT 31.2 Seconds (25.6-37.1) 11/29/17 15:09 - Constitutional Appears: Well, No Acute Distress - Eye Exam Eye Exam: EOMI, Normal appearance - ENT Exam ENT Exam: Mucous Membranes Moist - Neck Exam Neck Exam: Full ROM. absent: Meningismus - Respiratory Exam Respiratory Exam: Clear to Ausculation Bilateral, NORMAL BREATHING PATTERN - Cardiovascular Exam Cardiovascular Exam: REGULAR RHYTHM, +S1, +S2 - GI/Abdominal Exam GI & Abdominal Exam: Soft, Normal Bowel Sounds. absent: Tenderness - Extremities Exam Extremities Exam: Full ROM, Normal Inspection - Neurological Exam Neurological Exam: Awake, Oriented x3 (Oriented in person and place, becoming oriented in time. Pt knew today it is Tueday after spending some time thinking. (yesterday while rounding,pt was told it was Friday). ) Assessment and Plan - Assessment and Plan (Free Text) Assessment: 57 y/o M with a PMHx of HIV (currently not on HAART), seizures and previous episodes of AMS was admitted for evaluation and management of confusion. Plan: 1. Altered Mental Status. - Hydrocephalus/Prior parenchymal calcifications/Prior infection with cysticercosis. - Pt extensively worked up 3 months ago, due to prior infection and calcifications, prior consult with ID: NO antiparasitics indicated given calcifications. 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 - LP: Gram stain-negative , CSF showed 3 WBC , mostly Lymphocytes. CSF protein 78-high. - CSF VDRL and Cryptococcus antigen-NEGATIVE. - Influenza negative. - Currently on IV Acyclovir. Discontinued Vancomycin and Ceftriaxone as per ID. - Neurology on board, Dr Torres. - Neurosurgery on board, Dr Austin. - Infectology on board, Dr Her. - F/U HSV PCR, DILIA Virus , AFB, Histoplasmosis, Toxoplasmosis, CSF Acid fast. - MRA head and neck today. F/U reports and specialist's recommendations. - Lexapro 5MG, Namenda 5MG initiation recommended by Psychiatry. Will evaluate the suggested treatment with Neurology. 2. Fever - Last episode on 11/30/17-afternoon, temp 101.8 degF. - Unclear etiology. - CXR on 11/30/17 showed minor b/l bibasilar atelectasis, L>R, developing LLL infiltrate. - Urine CX with multiple species-probable contamination. - CSF Cx shows NO growth after 3 days. - Blood Cx shows NO growth after 48 hours. - Infectology on board, Dr Her. - IV Acyclovir - Ibuprofen PRN. - F/U HSV PCR, DILIA Virus , AFB, Histoplasmosis, Toxoplasmosis, CSF Acid fast. 3. Hx of Seizures - Keppra discontinued by neurology. - Hx of seizures prob sec to [employer] calcifications with hydrocephalus. - Neurology on board, Dr Torres. - C/w Valproate. 4. HIV, Asymptomatic - F/U CD4 count and viral load - Pt did not want to follow up at HIV clinic in prior discharge as he stated he was returning to [place]. - Previous CD4 count 128-low on 08/17/17. - HIV viral load 6.47 logcopies/mL. - Infectology on board, Dr Her. 5. DVT prophylaxis - SCD for now. - Lovenox SC daily.
--- NOTE | 2017-12-02 15:40 | CP.PCM.CON ---
History of Present Illness - History of Present Illness History of Present Illness: 57 year old male recently admitted several months ago for AMS, history of HIV+ noncomplaint with medications, seizures, thoroughly worked up prior admission, presented to the ER via BLS pleasantly confused being sent from the [employer] office today. Patient unable to describe why he is here or why he went to the [employer] supervisor office today, although he is oriented to person and place only, which is consistent with his prior admission 3 months ago. pt on evaluation reported that he is unable to recognize where he is unable to give the date or month of the year, presenting as oriented to person only pt reported feeling depressed as he is currently homeless also he has no social support, denied any current suicidal or homicidal ideations denied perceptual disturbances Past Patient History - Tetanus Immunizations Tetanus Immunization: Unknown - Past Medical History & Family History Past Medical History?: Yes - Past Social History Smoking Status: Never Smoked - CARDIAC Hx Cardiac Disorders: No - PULMONARY Hx Respiratory Disorders: No - NEUROLOGICAL Hx Neurological Disorder: Yes Hx Seizures: Yes - HEENT Hx HEENT Problems: No - RENAL Hx Chronic Kidney Disease: No - ENDOCRINE/METABOLIC Hx Endocrine Disorders: No - HEMATOLOGICAL/ONCOLOGICAL Hx Blood Disorders: Yes Hx AIDS: Yes Hx Human Immunodeficiency Virus (HIV): Yes - INTEGUMENTARY Hx Dermatological Problems: No - MUSCULOSKELETAL/RHEUMATOLOGICAL Hx Musculoskeletal Disorders: Yes Hx Falls: Yes - GASTROINTESTINAL Hx Gastrointestinal Disorders: No - GENITOURINARY/GYNECOLOGICAL Hx Genitourinary Disorders: No - PSYCHIATRIC Hx Psychophysiologic Disorder: No Hx Substance Use: No - SURGICAL HISTORY Hx Surgeries: No - ANESTHESIA Hx Anesthesia: No Hx Anesthesia Reactions: No Meds Allergies/Adverse Reactions: Allergies Allergy/AdvReac Type Severity Reaction Status Date / Time No Known Allergies Allergy Verified 11/29/17 14:14 - Medications Medications: Current Medications Divalproex Sodium (Depakote Dr(*Bid*)) 500 mg PO BID [facility] Last Admin: 12/02/17 09:28 Dose: 500 mg Acyclovir 700 mg/ Sodium (Chloride) 100 mls @ 100 mls/hr IVPB Q8 MOR PRN Reason: Protocol Last Admin: 12/02/17 11:44 Dose: 100 mls/hr Ibuprofen (Motrin Tab) 400 mg PO Q6 PRN PRN Reason: Fever >100.4 F Last Admin: 11/30/17 17:41 Dose: 400 mg Physical Exam - Psychiatric Exam Additional comments: pt seen in bed calm cooperative leasent , appears confused oriented to person only , thought form coherent able to answer questions about how long he has been in the states and how he contracted HIV, depressed ans tearful when talking about his living situation being homeless and about his medical illness , denied suicidal or homicidal ideations denied perceptual disturbances Results - Vital Signs Recent Vital Signs: Last Vital Signs Temp 97.9 F 12/02/17 08:59 Pulse 93 H 12/02/17 08:59 Resp 20 12/02/17 08:59 BP 112/65 12/02/17 08:59 Pulse Ox 99 12/02/17 08:59 - Labs Result Diagrams: 12/02/17 12:42 12/01/17 06:00 Labs: Laboratory Results - last 24 hr 11/30/17 12/01/17 12/02/17 19:00 20:32 12:42 WBC 4.6 L RBC 3.78 L Hgb 11.9 L Hct 35.2 MCV 93.1 MCH 31.4 H MCHC 33.7 RDW 13.2 Plt Count 131 Procalcitonin < 0.05 L Vancomycin Trough 13.0 H Assessment & Plan - Assessment and Plan (Free Text) Assessment: 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
--- NOTE | 2017-12-02 16:47 | MRI ---
PROCEDURE: MRA brain dated 12/01/2017. HISTORY: AMS COMPARISON: Correlation made with CT scan brain 11/29/2017 as well as concurrent MRA neck. TECHNIQUE: 3D time of flight MR angiography of the intracranial arteries was performed. Rotating maximum intensity projection images were generated. . FINDINGS: INTERNAL CAROTID ARTERIES: The visualized Distal internal carotid arteries including the, petrous, cavernous and supraclinoid segments are bilaterally widely patient. ANTERIOR CEREBRAL ARTERIES: Unremarkable. A1 and A2 segments are widely patent. Smaller distal branches unremarkable, as visualized. MIDDLE CEREBRAL ARTERIES: Unremarkable. M1 and M2 segments are widely patent. Perisylvian branches grossly symmetric. POSTERIOR CIRCULATION: Basilar Artery: Unremarkable. Distal Vertebral Arteries: There is mild asymmetry of the distal vertebral arteries left-sided which is larger in caliber/ more dominant than the right felt to represent a anatomic variant. . Posterior Cerebral Arteries: Unremarkable. Posterior Inferior Cerebellar Arteries: Unremarkable. ANEURYSM/ VASCULAR MALFORMATIONS: There is a small elliptical shaped focal area of what appears represent flow signal in the right lateral basal ganglia region that measures approximately 6.4 mm x 2.7 mm. This is visible both on the source and MIP images and is of uncertain etiology though could represent an incidental venous angioma. OTHER FINDINGS: None. IMPRESSION: No evidence of occlusion significant stenosis. Possible small venous angioma within the right lateral basal ganglia. . The possibility of a small aneurysm would be less likely this location. Consider followup CTA of the brain only for further evaluation.
--- NOTE | 2017-12-02 16:52 | MRI ---
PROCEDURE: MR Angiography of the neck without contrast HISTORY: AMS COMPARISON: None available. TECHNIQUE: 3D [id number] angiography of the neck was performed. Rotating maximum intensity projection images of the cervical carotid and vertebral arteries were generated. The origins of the common carotid arteries were not visualized, which is a limitation inherent to the non-contrast time of flight technique. FINDINGS: RIGHT CAROTID ARTERIES: Common Carotid Artery: Normal. Carotid Bifurcation: Normal. Internal Carotid Artery:Normal. External Carotid Artery (proximal branches): Normal. LEFT CAROTID ARTERIES: Common Carotid Artery: Normal. Carotid Bifurcation: Normal. Internal Carotid Artery:Normal. External Carotid Artery (proximal branches): Normal. VERTEBRAL ARTERIES: Right Vertebral Artery: Normal. Left Vertebral Artery: Normal. OTHER FINDINGS: None. IMPRESSION: No evidence of occlusion or significant stenosis.
[2017-12-02] MEDS ORDERED: Gadodiamide 287 MG/ML VIAL (15ML) IV ONE (17:06)
[2017-12-02 18:33] LABS: % CD4 (T HELPER CELL) 7 Percent (30-61); % CD8 (SUPPRESSOR T CELL) 60 Percent (12-42); ABSOLUTE CD4 CELLS 77 Cells/mcL (490-1740); ABSOLUTE CD8 CELLS 695 Cells/mcL (180-1170); ABSOLUTE LYMPHOCYTES 1155 Cells/mcL (850-3900); HELPER/SUPPRESSOR RATIO 0.11 Ratio (0.86-5.00)
[2017-12-03 02:00] LABS: SPECIMEN SOURCE CSF
[2017-12-03 06:37] LABS: BLOOD UREA NITROGEN 22 mg/dl (9-20); GFR AFRICAN-AMERICAN > 60; GFR NON-AFRICAN AMERICAN > 60
[2017-12-03 06:40] LABS: HEMOGLOBIN 11.8 g/dL (12.0-18.0); MEAN CELL VOLUME 92.7 fl (80.0-94.0); MEAN CORPUSCULAR HEMOGLOBIN 31.5 pg (27.0-31.0); RBC 3.76 Mil/uL (4.40-5.90); RED CELL DISTRIBUTION WIDTH 13.1 % (11.5-14.5); WHITE BLOOD COUNT 4.7 K/uL (4.8-10.8)
--- NOTE | 2017-12-03 08:57 | CON ---
DATE: 12/02/2017 HISTORY OF PRESENT ILLNESS: This is a 57-year-old gentlemen with known HIV, also apparently carries a known diagnosis of cerebral neurocysticercosis, apparently but confusing brought urgently to the hospital to the ER [address] shows multiple peripheral calcifications and hydrocephalus. PAST MEDICAL HISTORY: Reviewed and basically is most salient for the above. The rest of his pertinent history reviewed. PHYSICAL EXAMINATION GENERAL: He is awake, alert and pleasant, he responds to most questions. He is oriented to his name and hospital. Little foggy on some other areas. He does follow commands. HEENT: Pupils are equal and reactive. EOMs are full. NEUROLOGIC: Cranial nerves are intact. He has 5/5 strength throughout. He has normal sensation throughout. His gait is not tested. A CT does show multiple peripheral small calcifications. He also has hydrocephalus. IMPRESSION AND PLAN: I believe the patient likely would be a candidate for [employer]PERATOR shunting procedure. Through a glue reel operator, I briefly discussed with him and he would be in agreement; however, I am not sure that he is confident to make that decision. He does have a sister who I will reach out. In addition, he is awaiting an MRI, which I think is an excellent idea to make sure that there is no other pathology. Lastly, I noticed a trending down, we trending up his platelet count to the thrombocytopenia range, which is concerning. I ordered new a CBC for tomorrow. Robbie Austin MD
[2017-12-03] MEDS: Enoxaparin 40 mg Syringe SC SCH (10:10)
[2017-12-03] MEDS: Divalproex 500 mg DR(BID formulation) PO SCH ×2 (10:10→17:24)
[2017-12-03 11:34] LABS: SOURCE Plasma
--- NOTE | 2017-12-03 12:33 | CP.PCM.PN ---
Subjective - Date & Time of Evaluation Date of Evaluation: 12/03/17 Time of Evaluation: 12:29 - Subjective Subjective: Mr. Mejía was seen and examined at the bedside. He is alert, oriented. He is able to verbalize place, but not person or time. he denies any headache, dizziness, lightheadedness, nausea, or vomiting. He is able to follow simple commands. He is able to ambulate around his room in steady gait. mRA of the head showed no evidence of significant stenosis. Possible small venous angioma within the right lateral basal ganglia. The possibility of a small aneurysm would be less likely this location. There was no untoward events overnight. Objective - Vital Signs/Intake and Output Vital Signs (last 24 hours): Temp Pulse Resp BP Pulse Ox 97.4 F L 91 H 20 105/69 100 12/03/17 08:02 12/03/17 10:30 12/03/17 08:02 12/03/17 08:02 12/03/17 10:30 - Medications Medications: Current Medications Divalproex Sodium (Depakote Dr(*Bid*)) 500 mg PO BID [facility] Last Admin: 12/03/17 10:10 Dose: 500 mg Enoxaparin Sodium (Lovenox) 40 mg SC DAILY MOR PRN Reason: Protocol Last Admin: 12/03/17 10:10 Dose: 40 mg Escitalopram Oxalate (Lexapro) 5 mg PO HS [facility] Last Admin: 12/02/17 21:31 Dose: 5 mg Acyclovir 700 mg/ Sodium (Chloride) 100 mls @ 100 mls/hr IVPB Q8 MOR PRN Reason: Protocol Last Admin: 12/03/17 11:25 Dose: 100 mls/hr Ibuprofen (Motrin Tab) 400 mg PO Q6 PRN PRN Reason: Fever >100.4 F Last Admin: 11/30/17 17:41 Dose: 400 mg - Labs Labs: 12/03/17 05:35 12/03/17 05:35 PT 11.4 Seconds (9.8-13.1) 11/29/17 15:09 INR 1.0 (0.9-1.2) 11/29/17 15:09 APTT 31.2 Seconds (25.6-37.1) 11/29/17 15:09 - Constitutional Appears: No Acute Distress - Head Exam Head Exam: NORMAL INSPECTION - Neurological Exam Neurological Exam: Alert, Awake Neuro motor strength exam: Left Upper Extremity: 5, Right Upper Extremity: 5, Left Lower Extremity: 5, Right Lower Extremity: 5 Additional comments: Neurological improved , he is alert, oriented, able to follow simple commands and sensation remains intact. Assessment and Plan (1) Altered mental status Assessment & Plan: Case discussed with Dr. Fletcher, continue all current medical regimen. Pending MRI of the brain and EEG. Status: Acute (2) Generalized seizure Assessment & Plan: Case discussed with Dr. Fletcher, continue current AED's and pending EEG. Recommend valproic level. Status: Acute (3) Hydrocephalus Assessment & Plan: Case discussed with Dr. Fletcher, pending MRI of the brain with and without contrast to evaluate and recommend to neurosurgery. Status: Acute
--- NOTE | 2017-12-03 14:36 | CP.PCM.PN ---
Subjective - Date & Time of Evaluation Date of Evaluation: 12/03/17 Time of Evaluation: 14:36 - Subjective Subjective: ID note- Pt. seen and examined today. less confused today. oriented to place and date. denies any fever , denies any BARRETO. Objective - Vital Signs/Intake and Output Vital Signs (last 24 hours): Temp Pulse Resp BP Pulse Ox 97.4 F L 91 H 20 105/69 100 12/03/17 08:02 12/03/17 10:30 12/03/17 08:02 12/03/17 08:02 12/03/17 10:30 - Medications Medications: Current Medications Divalproex Sodium (Depakote Dr(*Bid*)) 500 mg PO BID [facility] Last Admin: 12/03/17 10:10 Dose: 500 mg Enoxaparin Sodium (Lovenox) 40 mg SC DAILY [facility] PRN Reason: Protocol Last Admin: 12/03/17 10:10 Dose: 40 mg Escitalopram Oxalate (Lexapro) 5 mg PO HS [facility] Last Admin: 12/02/17 21:31 Dose: 5 mg Acyclovir 700 mg/ Sodium (Chloride) 100 mls @ 100 mls/hr IVPB Q8 [facility] PRN Reason: Protocol Last Admin: 12/03/17 11:25 Dose: 100 mls/hr Ibuprofen (Motrin Tab) 400 mg PO Q6 PRN PRN Reason: Fever >100.4 F Last Admin: 11/30/17 17:41 Dose: 400 mg - Labs Labs: - Additional Findings Additional findings: - Constitutional Appears: No Acute Distress, - Head Exam Head Exam: ATRAUMATIC - Eye Exam Eye Exam: PERRL - ENT Exam ENT Exam: Normal Oropharynx - Neck Exam Neck exam: Positive for: Full Rom Additional comments: supple - Respiratory Exam Respiratory Exam: Clear to Auscultation Bilateral, NORMAL BREATHING PATTERN - Cardiovascular Exam Cardiovascular Exam: RRR, +S1, +S2 - GI/Abdominal Exam GI & Abdominal Exam: Normal Bowel Sounds, Soft Additional comments: NT, ND - Extremities Exam Extremities exam: Positive for: normal inspection - Neurological Exam Additional comments: AAO x 2 Laboratory Results - last 72 hr 11/29/17 11/29/17 11/29/17 18:30 18:30 20:20 WBC RBC Hgb Hct MCV MCH MCHC RDW Plt Count MPV Neut % (Auto) Lymph % (Auto) Candler % (Auto) Eos % (Auto) Baso % (Auto) Neut # (Auto) Lymph # (Auto) Candler # (Auto) Eos # (Auto) Baso # (Auto) Sodium Potassium Chloride Carbon Dioxide Anion Gap BUN Creatinine Est GFR ( Amer) Est GFR (Non-Af Amer) Random Glucose Calcium Total Bilirubin AST ALT Alkaline Phosphatase Total Protein Albumin Globulin Albumin/Globulin Ratio Procalcitonin Urine Color Urine Clarity Urine pH Ur Specific Terrell Urine Protein Urine Glucose (UA) Urine Ketones Urine Blood Urine Nitrate Urine Bilirubin Urine Urobilinogen Ur Leukocyte Esterase Urine RBC (Auto) Urine Microscopic WBC CSF VDRL Nonreactive Vancomycin Trough Absolute Lymphs (Flow) % CD4 Cells Absolute CD4 Count T-Help/Suppress Ratio % CD8 Cells Absolute CD8 Count HSV Source Description Csf HSV I DNA PCR Not detected HSV II DNA PCR Not detected HIV-1 RNA Qnt (RT-PCR) 5.67 H Influenza Typ A,B (EIA) BK Virus Spec Source BK Virus DNA Qual PCR DILIA Virus DNA (PCR) 11/30/17 11/30/17 11/30/17 19:00 19:15 19:37 WBC RBC Hgb Hct MCV MCH MCHC RDW Plt Count MPV Neut % (Auto) Lymph % (Auto) Candler % (Auto) Eos % (Auto) Baso % (Auto) Neut # (Auto) Lymph # (Auto) Candler # (Auto) Eos # (Auto) Baso # (Auto) Sodium Potassium Chloride Carbon Dioxide Anion Gap BUN Creatinine Est GFR ( Amer) Est GFR (Non-Af Amer) Random Glucose Calcium Total Bilirubin AST ALT Alkaline Phosphatase Total Protein Albumin Globulin Albumin/Globulin Ratio Procalcitonin < 0.05 L Urine Color Yellow Urine Clarity Clear Urine pH 5.0 Ur Specific Terrell 1.028 Urine Protein 30 Urine Glucose (UA) Neg Urine Ketones Negative Urine Blood Negative Urine Nitrate Negative Urine Bilirubin Negative Urine Urobilinogen 0.2-1.0 Ur Leukocyte Esterase Neg Urine RBC (Auto) 3 Urine Microscopic WBC 1 CSF VDRL Vancomycin Trough Absolute Lymphs (Flow) % CD4 Cells Absolute CD4 Count T-Help/Suppress Ratio % CD8 Cells Absolute CD8 Count HSV Source Description HSV I DNA PCR HSV II DNA PCR HIV-1 RNA Qnt (RT-PCR) Influenza Typ A,B (EIA) Negative for flu a/b BK Virus Spec Source BK Virus DNA Qual PCR DILIA Virus DNA (PCR) 12/01/17 12/01/17 12/01/17 06:00 06:00 06:00 WBC 3.3 L RBC 3.90 L Hgb 12.0 Hct 36.1 MCV 92.4 MCH 30.7 MCHC 33.2 RDW 13.5 Plt Count 121 L MPV 8.8 Neut % (Auto) 41.4 L Lymph % (Auto) 40.1 H Candler % (Auto) 13.0 H Eos % (Auto) 5.1 H Baso % (Auto) 0.4 Neut # (Auto) 1.4 L Lymph # (Auto) 1.3 Candler # (Auto) 0.4 Eos # (Auto) 0.2 Baso # (Auto) 0.0 Sodium 140 Potassium 4.0 Chloride 102 Carbon Dioxide 30 Anion Gap 12 BUN 23 H Creatinine 1.0 Est GFR ( Amer) > 60 Est GFR (Non-Af Amer) > 60 Random Glucose 91 Calcium 9.2 Total Bilirubin 0.4 AST 50 ALT 49 Alkaline Phosphatase 69 Total Protein 7.6 Albumin 3.5 Globulin 4.1 H Albumin/Globulin Ratio 0.9 L Procalcitonin Urine Color Urine Clarity Urine pH Ur Specific Terrell Urine Protein Urine Glucose (UA) Urine Ketones Urine Blood Urine Nitrate Urine Bilirubin Urine Urobilinogen Ur Leukocyte Esterase Urine RBC (Auto) Urine Microscopic WBC CSF VDRL Vancomycin Trough Absolute Lymphs (Flow) % CD4 Cells Absolute CD4 Count T-Help/Suppress Ratio % CD8 Cells Absolute CD8 Count HSV Source Description HSV I DNA PCR HSV II DNA PCR HIV-1 RNA Qnt (RT-PCR) Influenza Typ A,B (EIA) BK Virus Spec Source Plasma BK Virus DNA Qual PCR Not detected DILIA Virus DNA (PCR) Detected H 12/01/17 12/01/17 12/02/17 06:00 20:32 12:42 WBC 4.6 L RBC 3.78 L Hgb 11.9 L Hct 35.2 MCV 93.1 MCH 31.4 H MCHC 33.7 RDW 13.2 Plt Count 131 MPV Neut % (Auto) Lymph % (Auto) Candler % (Auto) Eos % (Auto) Baso % (Auto) Neut # (Auto) Lymph # (Auto) Candler # (Auto) Eos # (Auto) Baso # (Auto) Sodium Potassium Chloride Carbon Dioxide Anion Gap BUN Creatinine Est GFR ( Amer) Est GFR (Non-Af Amer) Random Glucose Calcium Total Bilirubin AST ALT Alkaline Phosphatase Total Protein Albumin Globulin Albumin/Globulin Ratio Procalcitonin Urine Color Urine Clarity Urine pH Ur Specific Terrell Urine Protein Urine Glucose (UA) Urine Ketones Urine Blood Urine Nitrate Urine Bilirubin Urine Urobilinogen Ur Leukocyte Esterase Urine RBC (Auto) Urine Microscopic WBC CSF VDRL Vancomycin Trough 13.0 H Absolute Lymphs (Flow) 1155 % CD4 Cells 7 L Absolute CD4 Count 77 L T-Help/Suppress Ratio 0.11 L % CD8 Cells 60 H Absolute CD8 Count 695 HSV Source Description HSV I DNA PCR HSV II DNA PCR HIV-1 RNA Qnt (RT-PCR) Influenza Typ A,B (EIA) BK Virus Spec Source BK Virus DNA Qual PCR DILIA Virus DNA (PCR) 12/03/17 12/03/17 05:35 05:35 WBC 4.7 L RBC 3.76 L Hgb 11.8 L Hct 34.8 L MCV 92.7 MCH 31.5 H MCHC 34.0 RDW 13.1 Plt Count 130 MPV Neut % (Auto) Lymph % (Auto) Candler % (Auto) Eos % (Auto) Baso % (Auto) Neut # (Auto) Lymph # (Auto) Candler # (Auto) Eos # (Auto) Baso # (Auto) Sodium 142 Potassium 4.4 Chloride 103 Carbon Dioxide 29 Anion Gap 14 BUN 22 H Creatinine 0.9 Est GFR ( Amer) > 60 Est GFR (Non-Af Amer) > 60 Random Glucose 91 Calcium 9.0 Total Bilirubin AST ALT Alkaline Phosphatase Total Protein Albumin Globulin Albumin/Globulin Ratio Procalcitonin Urine Color Urine Clarity Urine pH Ur Specific Terrell Urine Protein Urine Glucose (UA) Urine Ketones Urine Blood Urine Nitrate Urine Bilirubin Urine Urobilinogen Ur Leukocyte Esterase Urine RBC (Auto) Urine Microscopic WBC CSF VDRL Vancomycin Trough Absolute Lymphs (Flow) % CD4 Cells Absolute CD4 Count T-Help/Suppress Ratio % CD8 Cells Absolute CD8 Count HSV Source Description HSV I DNA PCR HSV II DNA PCR HIV-1 RNA Qnt (RT-PCR) Influenza Typ A,B (EIA) BK Virus Spec Source BK Virus DNA Qual PCR DILIA Virus DNA (PCR) Microbiology 11/29/17 15:18 Blood-Venous Blood Culture - Preliminary NO GROWTH AFTER 4 DAYS 11/29/17 15:00 Blood-Venous Blood Culture - Preliminary NO GROWTH AFTER 4 DAYS 11/29/17 18:00 Cerebral Spinal Fluid Gram Stain - Final 11/29/17 18:00 Cerebral Spinal Fluid CSF Culture - Preliminary NO GROWTH AFTER 2 DAYS 11/29/17 18:30 Cerebral Spinal Fluid Gram Stain - Final 11/29/17 18:30 Cerebral Spinal Fluid CSF Culture - Preliminary NO GROWTH AFTER 4 DAYS 12/02/17 05:30 Blood Blood Culture - Preliminary NO GROWTH AFTER 24 HOURS 12/02/17 05:30 Blood Blood Culture - Preliminary NO GROWTH AFTER 24 HOURS 11/30/17 19:30 Blood Blood Culture - Preliminary NO GROWTH AFTER 48 HOURS 11/30/17 19:00 Blood Blood Culture - Preliminary NO GROWTH AFTER 48 HOURS 11/29/17 19:19 Urine,Clean Catch Urine Culture - Final 10-50,000 CFU/ML. MULTIPLE SPECIES. PROBABLE CONTAMINATION. Assessment and Plan (1) Altered mental status Status: Acute (2) Fever Status: Acute (3) Hydrocephalus Status: Acute (4) Brain parenchymal calcification Status: Chronic (5) Generalized seizure Status: Acute - Assessment and Plan (Free Text) Assessment: A/P- 57 year old male with hIV ( noncomplaint ith his medds), seizure disorder and microcalcifications on brain CT unchanged from previous Brain CT in 07/2018 and hydrocephalus admitted with confusion and fever. afebrile past couple day. more alert today. csf only 3 wbc and all 3 are lymphocytes , normal glucose, elevated protein. csf crypt ag and VDRL - negative csf HSV pCR- neg last admission tenia solium ab- negative toxo IGG- pos CMV IGG- pos csf gram stain and cx- neg csf DILIA virus- detected CD4-77 plan- advise to d/c IV acyclovir. microcalcifications are old and calcified as per radiologist' report and since tenia solium Ab was negative - It's unlikely to be neurocysticercosis and initiating antiparasitic at times can cause more seizures and inflammation specially if the lesions are calcified. Hydroephalus eval as per neurosurgery await brain MRI result . continue antiseizure meds as per neuro. since CD4 is <[address] on bactrim for PCP prophylaxis. will need to start HAART , however , check genotype prior to starting HAART . DILIA virus in CSF detected and hence PML is also a possibility . there is no direct therapy for PML , only to take HAART meds for HIV control.
--- NOTE | 2017-12-03 16:51 | CP.PCM.PN ---
Subjective - Date & Time of Evaluation Date of Evaluation: 12/03/17 Time of Evaluation: 13:30 - Subjective Subjective: 57 y/o M evaluated and examined by bedside. Pt reports feeling better, awake, oriented x3, Pt afebrile, tolerating PO, ambulating with NO difficulties with NO acute events overnight. Pt still slow to answer questions. - Pt states he would like to get a job, and start his chronic therapy. - Pt has clear decision about his homeless situation and would like to discuss with social work case manager again. Pt thinking about a alf. - Pt report not being in a good relationship with his siter. Pt gave a phone number without a area code [phone]. Sister lives in [place], [place]. Tried to reach this number with the possible areas for mentioned place in [place]. Still, not able to contact her. Objective - Vital Signs/Intake and Output Vital Signs (last 24 hours): Temp Pulse Resp BP Pulse Ox 98.3 F 93 H 18 111/67 97 12/03/17 16:13 12/03/17 16:13 12/03/17 16:13 12/03/17 16:13 12/03/17 16:13 - Medications Medications: Current Medications Divalproex Sodium (Depakote Dr(*Bid*)) 500 mg PO BID [facility] Last Admin: 12/03/17 10:10 Dose: 500 mg Enoxaparin Sodium (Lovenox) 40 mg SC DAILY [facility] PRN Reason: Protocol Last Admin: 12/03/17 10:10 Dose: 40 mg Escitalopram Oxalate (Lexapro) 5 mg PO HS [facility] Last Admin: 12/02/17 21:31 Dose: 5 mg Ibuprofen (Motrin Tab) 400 mg PO Q6 PRN PRN Reason: Fever >100.4 F Last Admin: 11/30/17 17:41 Dose: 400 mg Trimethoprim/Sulfamethoxazole (Bactrim Ds Tab) 1 tab PO DAILY [facility] PRN Reason: Protocol - Labs Labs: 12/03/17 05:35 12/03/17 05:35 PT 11.4 Seconds (9.8-13.1) 11/29/17 15:09 INR 1.0 (0.9-1.2) 11/29/17 15:09 APTT 31.2 Seconds (25.6-37.1) 02/10/18 15:09 - Constitutional Appears: Well, No Acute Distress - Head Exam Head Exam: ATRAUMATIC, NORMAL INSPECTION - Eye Exam Eye Exam: EOMI, Normal appearance - ENT Exam ENT Exam: Mucous Membranes Moist - Neck Exam Neck Exam: Full ROM - Respiratory Exam Respiratory Exam: Clear to Ausculation Bilateral, NORMAL BREATHING PATTERN - Cardiovascular Exam Cardiovascular Exam: REGULAR RHYTHM, +S1, +S2 - Extremities Exam Extremities Exam: Full ROM, Normal Inspection. absent: Joint Swelling, Pedal Edema - Neurological Exam Neurological Exam: Alert, Awake, Oriented x3 Assessment and Plan - Assessment and Plan (Free Text) Assessment: 57 y/o M with a PMHx of HIV (currently not on HAART), seizures and previous episodes of AMS was admitted for evaluation and management of confusion. Plan: 1. Altered Mental Status. - Hydrocephalus/Prior parenchymal calcifications/Prior infection with cysticercosis. - Pt extensively worked up 3 months ago, due to prior infection and calcifications, prior consult with ID: NO antiparasitics indicated given calcifications. 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 - LP: Gram stain-negative , CSF showed 3 WBC , mostly Lymphocytes. CSF protein 78-high. CSF VDRL and Cryptococcus antigen-NEGATIVE. Influenza negative. - Currently on IV Acyclovir. - Neurology, Neurosurgery, Infectology on board. - F/U AFB, Histoplasmosis, Toxoplasmosis, CSF Acid fast. - MRA head and neck showed NO evidence of stenosis or occlusion. - Lexapro initiated - Namenda on hold. - BK virus PCR-not detected. DILIA virus detected. HSV PCR not detected. - MRI Brain to be performed today. 2. Fever - Last episode on 11/30/17-afternoon, temp 101.8 degF. - Unclear etiology. - CXR on 11/30/17 showed minor b/l bibasilar atelectasis, L>R, developing LLL infiltrate. - Urine CX with multiple species-probable contamination. - CSF Cx shows NO growth after 2 days. - Blood Cx shows NO growth after 4 days. - Infectology on board, Dr Her. - IV Acyclovir - Ibuprofen PRN. - F/U AFB, Histoplasmosis, Toxoplasmosis, CSF Acid fast. 3. Hx of Seizures - Keppra discontinued by neurology. 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 - Neurology on board, Dr Torres. - C/w Valproate. 4. HIV, Asymptomatic - Pt did not want to follow up at HIV clinic in prior discharge as he stated he was returning to [place]. - Previous CD4 count 128-low on 08/17/17. - HIV viral load 6.47 logcopies/mL. - Infectology on board, Dr Her. - Today's CD 4 count 77-low - Today's HIV viral load 5.67-high - Will initiate PCP prophylaxis with Bactrim. 5. DVT prophylaxis - SCD for now. - Lovenox SC daily.
[2017-12-04 06:28] LABS: HDL CHOLESTEROL 29 MG/DL (30-70)
[2017-12-04 06:38] LABS: LDL CHOLESTEROL 35 mg/dL (0-129)
[2017-12-04] MEDS: Tmp-Smz 800 mg-160 mg DS Tab PO SCH (10:19)
[2017-12-04] MEDS: Enoxaparin 40 mg Syringe SC SCH (10:20)
[2017-12-04] MEDS: Divalproex 500 mg DR(BID formulation) PO SCH (10:20)
--- NOTE | 2017-12-04 10:56 | CP.PCM.PN ---
Subjective - Date & Time of Evaluation Date of Evaluation: 12/04/17 Time of Evaluation: 10:50 - Subjective Subjective: Mr. Mejía was seen and examined at the bedside. He is alert, sleepy, but able to follow simple commands. He is incontinent to urine. He is able to ambulate to the bathroom in steady. He refused to answer questions and follow commands. There was no untoward events overnight. Objective - Vital Signs/Intake and Output Vital Signs (last 24 hours): Temp Pulse Resp BP Pulse Ox 99.8 F H 89 20 111/73 99 12/04/17 07:56 12/04/17 07:56 12/04/17 07:56 12/04/17 07:56 12/04/17 07:56 - Medications Medications: Current Medications Divalproex Sodium (Depakote Dr(*Bid*)) 500 mg PO BID [facility] Last Admin: 12/04/17 10:20 Dose: 500 mg Enoxaparin Sodium (Lovenox) 40 mg SC DAILY [facility] PRN Reason: Protocol Last Admin: 12/04/17 10:20 Dose: 40 mg Escitalopram Oxalate (Lexapro) 5 mg PO HS [facility] Last Admin: 12/03/17 23:20 Dose: 5 mg Ibuprofen (Motrin Tab) 400 mg PO Q6 PRN PRN Reason: Fever >100.4 F Last Admin: 11/30/17 17:41 Dose: 400 mg Trimethoprim/Sulfamethoxazole (Bactrim Ds Tab) 1 tab PO DAILY [facility] PRN Reason: Protocol Last Admin: 12/04/17 10:19 Dose: 1 tab - Labs Labs: 12/03/17 05:35 12/03/17 05:35 PT 11.4 Seconds (9.8-13.1) 11/29/17 15:09 INR 1.0 (0.9-1.2) 11/29/17 15:09 APTT 31.2 Seconds (25.6-37.1) 11/29/17 15:09 - Constitutional Appears: No Acute Distress - Head Exam Head Exam: NORMAL INSPECTION - Neurological Exam Neurological Exam: Alert, Awake Neuro motor strength exam: Left Upper Extremity: 5, Right Upper Extremity: 5, Left Lower Extremity: 5, Right Lower Extremity: 5 Additional comments: Neurological unchanged from previous examination. Assessment and Plan (1) Altered mental status Assessment & Plan: Case discussed with Dr. Fletcher, continue all current medical regimen including antiviral therapy. Status: Acute (2) Generalized seizure Assessment & Plan: Case discussed with Dr. Fletcher, continue all current medical regimen including AED.Recommend to follow up with an outpatient neurologist. Status: Acute (3) Hydrocephalus Assessment & Plan: Case discussed with Dr. Fletcher, patient unable to tolerate MRI even with pre- medication of ativan. Status: Acute
--- NOTE | 2017-12-04 12:18 | CP.PCM.PN ---
<Bright Ordaz - Last Filed: 12/04/17 15:30> Subjective - Date & Time of Evaluation Date of Evaluation: 12/04/17 Time of Evaluation: 11:30 - Subjective Subjective: 57 y/o M evaluated and examined by bedside. Pt awake, reports feeling well but seems more confused than yesterday. Pt afebrile, tolerating PO with NO acute events overnight. Pt denies headache, fever, CP, SOB, abdominal pain, or diarrhea. - Appointment made by ELLY at [facility] on Friday at 09:20am. Objective - Vital Signs/Intake and Output Vital Signs (last 24 hours): Temp Pulse Resp BP Pulse Ox 99.8 F H 89 20 111/73 99 12/04/17 07:56 12/04/17 07:56 12/04/17 07:56 12/04/17 07:56 12/04/17 07:56 - Medications Medications: Current Medications Divalproex Sodium (Depakote Dr(*Bid*)) 500 mg PO BID [facility] Last Admin: 12/04/17 10:20 Dose: 500 mg Enoxaparin Sodium (Lovenox) 40 mg SC DAILY [facility] PRN Reason: Protocol Last Admin: 12/04/17 10:20 Dose: 40 mg Escitalopram Oxalate (Lexapro) 5 mg PO HS [facility] Last Admin: 12/03/17 23:20 Dose: 5 mg Ibuprofen (Motrin Tab) 400 mg PO Q6 PRN PRN Reason: Fever >100.4 F Last Admin: 11/30/17 17:41 Dose: 400 mg Trimethoprim/Sulfamethoxazole (Bactrim Ds Tab) 1 tab PO DAILY [facility] PRN Reason: Protocol Last Admin: 12/04/17 10:19 Dose: 1 tab - Labs Labs: 12/03/17 05:35 12/03/17 05:35 PT 11.4 Seconds (9.8-13.1) 11/29/17 15:09 INR 1.0 (0.9-1.2) 11/29/17 15:09 APTT 31.2 Seconds (25.6-37.1) 11/29/17 15:09 - Constitutional Appears: Well, No Acute Distress, Confused - Head Exam Head Exam: ATRAUMATIC - Eye Exam Eye Exam: EOMI, Normal appearance - ENT Exam ENT Exam: Mucous Membranes Moist - Neck Exam Neck Exam: Full ROM. absent: Meningismus - Respiratory Exam Respiratory Exam: Clear to Ausculation Bilateral, NORMAL BREATHING PATTERN - Cardiovascular Exam Cardiovascular Exam: REGULAR RHYTHM, +S1, +S2 - GI/Abdominal Exam GI & Abdominal Exam: Soft, Normal Bowel Sounds. absent: Rigid, Tenderness - Extremities Exam Extremities Exam: Full ROM, Normal Inspection - Neurological Exam Neurological Exam: Awake (Pt seems more confused than yesterday. Pt is oriented in person, not able to answer questions. Pt seems to concentrate for a long time. ) Assessment and Plan - Assessment and Plan (Free Text) Assessment: 57 y/o M with a PMHx of HIV (currently not on HAART), seizures and previous episodes of AMS was admitted for evaluation and management of confusion. Plan: 1. Altered Mental Status. - Seem to be aggravated today 12/04/17. - Hydrocephalus/Prior parenchymal calcifications/Prior infection with cysticercosis. - Pt extensively worked up 3 months ago, due to prior infection and calcifications, prior consult with ID: NO antiparasitic indicated given calcifications. 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 - LP: Gram stain-negative , CSF showed 3 WBC , mostly Lymphocytes. CSF protein 78-high. CSF VDRL and Cryptococcus antigen-NEGATIVE. Influenza negative. - Currently on IV Acyclovir. - Neurology, Neurosurgery, Infectious Disease on board. - F/U AFB, Histoplasmosis, Toxoplasmosis, CSF Acid fast. - MRA head and neck showed NO evidence of stenosis or occlusion. - On Lexapro. Namenda on hold. - BK virus PCR-not detected. DILIA virus detected. HSV PCR not detected. HAART needs to be re-initiated. - MRI Brain, not performed due to pt's poor compliance, not able to stay still even w/ Ativan. 2. Fever - Last episode on 11/30/17-afternoon, temp 101.8 degF. - Unclear etiology. - CXR on 11/30/17 showed minor b/l bibasilar atelectasis, L>R, developing LLL infiltrate. - Urine CX with multiple species-probable contamination. - CSF Cx shows NO growth-final report. - Blood Cx shows NO growth. - Infectology on board, Dr Her. - IV Acyclovir - Ibuprofen PRN. - F/U AFB, Histoplasmosis, Toxoplasmosis, CSF Acid fast. 3. Hx of Seizures - Keppra discontinued by neurology. 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 - Neurology on board, Dr Torres. - C/w Valproate. 4. AIDS - Pt did not want to follow up at HIV clinic in prior discharge as he stated he was returning to [place]. - Previous CD4 count 128-low on 08/17/17. - HIV viral load 6.47 logcopies/mL. - Infectology on board, Dr Her. - Today's CD 4 count 77-low - Today's HIV viral load 5.67-high - Bactrim for PCP prophylaxis 5. Hyperlipidemia - Trig 197-high, HDL 29-low. - Monitor lipid panel, f/u with PMD. 6. DVT prophylaxis - SCD for now. - Lovenox SC daily. <Artemio De Jesus - Last Filed: 12/04/17 17:54> Objective - Vital Signs/Intake and Output Vital Signs (last 24 hours): Temp Pulse Resp BP Pulse Ox 97.1 F L 66 20 90/54 L 96 12/04/17 16:48 12/04/17 16:48 12/04/17 16:48 12/04/17 16:48 12/04/17 16:48 - Medications Medications: Current Medications Divalproex Sodium (Depakote Dr(*Bid*)) 500 mg PO BID [facility] Last Admin: 12/04/17 10:20 Dose: 500 mg Enoxaparin Sodium (Lovenox) 40 mg SC DAILY [facility] PRN Reason: Protocol Last Admin: 12/04/17 10:20 Dose: 40 mg Escitalopram Oxalate (Lexapro) 5 mg PO HS [facility] Last Admin: 12/03/17 23:20 Dose: 5 mg Ibuprofen (Motrin Tab) 400 mg PO Q6 PRN PRN Reason: Fever >100.4 F Last Admin: 11/30/17 17:41 Dose: 400 mg Trimethoprim/Sulfamethoxazole (Bactrim Ds Tab) 1 tab PO DAILY [facility] PRN Reason: Protocol Last Admin: 12/04/17 10:19 Dose: 1 tab - Labs Labs: 12/03/17 05:35 12/03/17 05:35 PT 11.4 Seconds (9.8-13.1) 11/29/17 15:09 INR 1.0 (0.9-1.2) 11/29/17 15:09 APTT 31.2 Seconds (25.6-37.1) 11/29/17 15:09 Assessment and Plan - Assessment and Plan (Free Text) Assessment: ATTENDING ATTESTATION: Patient was seen and examined. I discussed the case with the resident and agree with the findings and plan as documented in the residents note. Patient unable to be discharged today to fdc as he remains acutely confused and does not know where he is. Likely multifactorial encephalopathy from HIV, ventriculomegaly Follow up with adoption social worker/ case management
[2017-12-05 06:38] LABS: HEMOGLOBIN 12.5 g/dL (12.0-18.0); MEAN CELL VOLUME 93.1 fl (80.0-94.0); MEAN CORPUSCULAR HEMOGLOBIN 30.9 pg (27.0-31.0); MEAN CORPUSCULAR HGB CONC 33.2 g/dL (33.0-37.0); RBC 4.04 Mil/uL (4.40-5.90); RED CELL DISTRIBUTION WIDTH 13.2 % (11.5-14.5); WHITE BLOOD COUNT 4.6 K/uL (4.8-10.8)
[2017-12-05 06:43] LABS: BLOOD UREA NITROGEN 19 mg/dl (9-20); CALCIUM 9.2 mg/dL (8.4-10.2); GFR AFRICAN-AMERICAN > 60; GFR NON-AFRICAN AMERICAN > 60
[2017-12-05] MEDS: Tmp-Smz 800 mg-160 mg DS Tab PO SCH (09:35)
[2017-12-05] MEDS: Enoxaparin 40 mg Syringe SC SCH (09:35)
[2017-12-05] MEDS: Divalproex 500 mg DR(BID formulation) PO SCH ×2 (09:35→17:21)
--- NOTE | 2017-12-05 10:22 | CP.PCM.PN ---
Subjective - Date & Time of Evaluation Date of Evaluation: 12/05/17 Time of Evaluation: 07:50 Objective - Vital Signs/Intake and Output Vital Signs (last 24 hours): Temp Pulse Resp BP Pulse Ox 98.6 F 96 H 20 112/77 96 12/05/17 08:09 12/05/17 08:09 12/05/17 08:09 12/05/17 08:09 12/05/17 08:09 - Medications Medications: Current Medications Divalproex Sodium (Depakote Dr(*Bid*)) 500 mg PO BID [facility] Last Admin: 12/05/17 09:35 Dose: 500 mg Enoxaparin Sodium (Lovenox) 40 mg SC DAILY [facility] PRN Reason: Protocol Last Admin: 12/05/17 09:35 Dose: 40 mg Escitalopram Oxalate (Lexapro) 5 mg PO HS [facility] Last Admin: 12/04/17 23:54 Dose: 5 mg Ibuprofen (Motrin Tab) 400 mg PO Q6 PRN PRN Reason: Fever >100.4 F Last Admin: 11/30/17 17:41 Dose: 400 mg Trimethoprim/Sulfamethoxazole (Bactrim Ds Tab) 1 tab PO DAILY [facility] PRN Reason: Protocol Last Admin: 12/05/17 09:35 Dose: 1 tab - Labs Labs: 12/05/17 06:15 12/05/17 06:15 PT 11.4 Seconds (9.8-13.1) 11/29/17 15:09 INR 1.0 (0.9-1.2) 11/29/17 15:09 APTT 31.2 Seconds (25.6-37.1) 11/29/17 15:09
--- NOTE | 2017-12-05 10:52 | CP.PCM.PN ---
Subjective - Date & Time of Evaluation Date of Evaluation: 12/05/17 Time of Evaluation: 10:50 - Subjective Subjective: Mr. Mejía was seen and examined at the bedside. He is sleepy, but able to answer some questions. He is unable to state place, person, and time. He denies any headache, dizziness, lightheadedness, nausea, or vomiting. He is able to follow commands. The latest Valproic level is 58.5. There was no untoward events overnight. Objective - Vital Signs/Intake and Output Vital Signs (last 24 hours): Temp Pulse Resp BP Pulse Ox 98.6 F 96 H 20 112/77 96 12/05/17 08:09 12/05/17 08:09 12/05/17 08:09 12/05/17 08:09 12/05/17 08:09 - Medications Medications: Current Medications Divalproex Sodium (Depakote Dr(*Bid*)) 500 mg PO BID [facility] Last Admin: 12/05/17 09:35 Dose: 500 mg Enoxaparin Sodium (Lovenox) 40 mg SC DAILY [facility] PRN Reason: Protocol Last Admin: 12/05/17 09:35 Dose: 40 mg Escitalopram Oxalate (Lexapro) 5 mg PO HS [facility] Last Admin: 12/04/17 23:54 Dose: 5 mg Ibuprofen (Motrin Tab) 400 mg PO Q6 PRN PRN Reason: Fever >100.4 F Last Admin: 11/30/17 17:41 Dose: 400 mg Trimethoprim/Sulfamethoxazole (Bactrim Ds Tab) 1 tab PO DAILY [facility] PRN Reason: Protocol Last Admin: 12/05/17 09:35 Dose: 1 tab - Labs Labs: 12/05/17 06:15 12/05/17 06:15 PT 11.4 Seconds (9.8-13.1) 11/29/17 15:09 INR 1.0 (0.9-1.2) 11/29/17 15:09 APTT 31.2 Seconds (25.6-37.1) 11/29/17 15:09 - Constitutional Appears: No Acute Distress - Head Exam Head Exam: NORMAL INSPECTION - Neurological Exam Neurological Exam: Awake Neuro motor strength exam: Left Upper Extremity: 5, Right Upper Extremity: 5, Left Lower Extremity: 5, Right Lower Extremity: 5 Additional comments: He is able to answer some questions, unable to answer person, place, and time. He is also able to follow commands. Assessment and Plan (1) Altered mental status Assessment & Plan: Case discussed with Dr. Fletcher,continue all current medical regimen including anti-viral to alleviate his altered mental status. Status: Acute (2) Generalized seizure Assessment & Plan: Case discussed with Dr. Fletcher, continue all current medical regimen including same dose of AED. Status: Acute
--- NOTE | 2017-12-05 12:46 | CP.PCM.DIS ---
<Austin Goddard - Last Filed: 12/05/17 12:44> Provider - Provider Date of Admission: 11/30/17 18:22 Attending physician: Yue Sanchez DO Primary care physician: NO FAMILY PROVIDER Time Spent in preparation of Discharge (in minutes): 25 Hospital Course - Lab Results Lab Results: Micro Results 11/29/17 18:00 Cerebral Spinal Fluid Gram Stain - Final 11/29/17 18:00 Cerebral Spinal Fluid CSF Culture - Preliminary NO GROWTH AFTER 4 DAYS 12/02/17 05:30 Blood Blood Culture - Preliminary NO GROWTH AFTER 3 DAYS 12/02/17 05:30 Blood Blood Culture - Preliminary NO GROWTH AFTER 3 DAYS 11/30/17 19:30 Blood Blood Culture - Preliminary NO GROWTH AFTER 4 DAYS 11/30/17 19:00 Blood Blood Culture - Preliminary NO GROWTH AFTER 4 DAYS 11/29/17 15:18 Blood-Venous Blood Culture - Final NO GROWTH AFTER 5 DAYS 11/29/17 15:18 Blood-Venous Gram Stain - Final TEST NOT PERFORMED 11/29/17 15:00 Blood-Venous Blood Culture - Final NO GROWTH AFTER 5 DAYS 11/29/17 15:00 Blood-Venous Gram Stain - Final TEST NOT PERFORMED 11/29/17 18:30 Cerebral Spinal Fluid Gram Stain - Final 11/29/17 18:30 Cerebral Spinal Fluid CSF Culture - Final No growth. 11/29/17 19:19 Urine,Clean Catch Urine Culture - Final 10-50,000 CFU/ML. MULTIPLE SPECIES. PROBABLE CONTAMINATION. Most Recent Lab Values WBC 4.6 K/uL (4.8-10.8) L 12/05/17 06:15 RBC 4.04 Mil/uL (4.40-5.90) L 12/05/17 06:15 Hgb 12.5 g/dL (12.0-18.0) 12/05/17 06:15 Hct 37.6 % (35.0-51.0) 12/05/17 06:15 MCV 93.1 fl (80.0-94.0) 12/05/17 06:15 MCH 30.9 pg (27.0-31.0) 12/05/17 06:15 MCHC 33.2 g/dL (33.0-37.0) 12/05/17 06:15 RDW 13.2 % (11.5-14.5) 12/05/17 06:15 Plt Count 138 K/uL (130-400) 12/05/17 06:15 MPV 8.8 fl (7.2-11.7) 12/01/17 06:00 Neut % (Auto) 41.4 % (50.0-75.0) L 12/01/17 06:00 Lymph % (Auto) 40.1 % (20.0-40.0) H 12/01/17 06:00 [place] % (Auto) 13.0 % (0.0-10.0) H 12/01/17 06:00 Eos % (Auto) 5.1 % (0.0-4.0) H 12/01/17 06:00 Baso % (Auto) 0.4 % (0.0-2.0) 12/01/17 06:00 Neut # (Auto) 1.4 K/uL (1.8-7.0) L 12/01/17 06:00 Lymph # (Auto) 1.3 K/uL (1.0-4.3) 12/01/17 06:00 [place] # (Auto) 0.4 K/uL (0.0-0.8) 12/01/17 06:00 Eos # (Auto) 0.2 K/uL (0.0-0.7) 12/01/17 06:00 Baso # (Auto) 0.0 K/uL (0.0-0.2) 12/01/17 06:00 PT 11.4 Seconds (9.8-13.1) 11/29/17 15:09 INR 1.0 (0.9-1.2) 11/29/17 15:09 APTT 31.2 Seconds (25.6-37.1) 11/29/17 15:09 Sodium 140 mmol/l (132-148) 12/05/17 06:15 Potassium 4.3 MMOL/L (3.6-5.0) 12/05/17 06:15 Chloride 99 mmol/L (98-107) 12/05/17 06:15 Carbon Dioxide 29 mmol/L (22-30) 12/05/17 06:15 Anion Gap 16 (10-20) 12/05/17 06:15 BUN 19 mg/dl (9-20) 12/05/17 06:15 Creatinine 1.1 mg/dl (0.8-1.5) 12/05/17 06:15 Est GFR ( Amer) > 60 12/05/17 06:15 Est GFR (Non-Af Amer) > 60 12/05/17 06:15 Random Glucose 92 mg/dL (75-110) 12/05/17 06:15 Lactic Acid 0.9 MMOL/L (0.7-2.1) 11/29/17 15:09 Calcium 9.2 mg/dL (8.4-10.2) 12/05/17 06:15 Total Bilirubin 0.4 mg/dl (0.2-1.3) 12/01/17 06:00 AST 50 U/L (17-59) 12/01/17 06:00 ALT 49 U/L (21-72) 12/01/17 06:00 Alkaline Phosphatase 69 U/L (38-126) 12/01/17 06:00 Ammonia 28 umo/L (16-60) 11/29/17 15:57 Troponin I < 0.0120 ng/mL (0.00-0.120) 11/29/17 17:10 Total Protein 7.6 G/DL (6.3-8.2) 12/01/17 06:00 Albumin 3.5 g/dL (3.5-5.0) 12/01/17 06:00 Globulin 4.1 gm/dL (2.2-3.9) H 12/01/17 06:00 Albumin/Globulin Ratio 0.9 (1.0-2.1) L 12/01/17 06:00 Triglycerides 197 mg/DL (0-149) H 12/04/17 05:50 Cholesterol 114 mg/dL (0-199) 12/04/17 05:50 LDL Cholesterol Direct 35 mg/dL (0-129) 12/04/17 05:50 HDL Cholesterol 29 MG/DL (30-70) L 12/04/17 05:50 Procalcitonin < 0.05 NG/ML (0.19-0.49) L 11/30/17 19:00 Urine Color Yellow (YELLOW) 11/30/17 19:37 Urine Clarity Clear (Clear) 11/30/17 19:37 Urine pH 5.0 (5.0-8.0) 11/30/17 19:37 Ur Specific [place] 1.028 (1.003-1.030) 11/30/17 19:37 Urine Protein 30 mg/dL (NEGATIVE) 11/30/17 19:37 Urine Glucose (UA) Neg mg/dL (Normal) 11/30/17 19:37 Urine Ketones Negative mg/dL (NEGATIVE) 11/30/17 19:37 Urine Blood Negative (NEGATIVE) 11/30/17 19:37 Urine Nitrate Negative (NEGATIVE) 11/30/17 19:37 Urine Bilirubin Negative (NEGATIVE) 11/30/17 19:37 Urine Urobilinogen 0.2-1.0 mg/dL (0.2-1.0) 11/30/17 19:37 Ur Leukocyte Esterase Neg Florinda/uL (Negative) 11/30/17 19:37 Urine RBC (Auto) 3 /hpf (0-3) 11/30/17 19:37 Urine Microscopic WBC 1 /hpf (0-5) 11/30/17 19:37 Ur Squamous Epith Cells 2 /hpf (0-5) 11/29/17 19:45 Urine Bacteria Rare (<OCC) 11/29/17 19:45 Hyaline Casts 0-2 /hpf (0-2) 11/29/17 19:45 Fluid Type Spinal fluid 11/29/17 18:30 CSF Volume 2 mL (0-1) H 11/29/17 18:30 CSF Appearance Clear/colorless (CLEAR) 11/29/17 18:30 CSF WBC 3.0 /mm3 (0.0-5.0) 11/29/17 18:30 CSF RBC 1.0 /mm3 (0.0-0.0) H 11/29/17 18:30 CSF Total Cell Counted 3 (0-0) H 11/29/17 18:30 CSF Neutrophils 0 % (0-0) 11/29/17 18:30 CSF Lymphocytes 3.0 % (0-0) H 11/29/17 18:30 CSF Monos/Macrophages 0 % (0-0) 11/29/17 18:30 CSF Comment 11/29/17 18:30 CSF Glucose 48 mg/dL (40-70) 11/29/17 18:30 CSF Total Protein 78.0 mg/dL (12-60) H 11/29/17 18:30 CSF VDRL Nonreactive (Nonreactive) 11/29/17 18:30 CSF Cryptococcus Ag Negative (NEGATIVE) 11/29/17 18:30 Vancomycin Trough 13.0 ug/mL (5.0-10.0) H 12/01/17 20:32 Urine Opiates Screen Negative (NEGATIVE) 11/29/17 19:19 Urine Methadone Screen Negative (NEGATIVE) 11/29/17 19:19 Ur Barbiturates Screen Negative (NEGATIVE) 11/29/17 19:19 Valproic Acid 58.5 ug/mL (50.0-100.0) 12/04/17 05:50 Ur Phencyclidine Scrn Negative (NEGATIVE) 11/29/17 19:19 Ur Amphetamines Screen Negative (NEGATIVE) 11/29/17 19:19 U Benzodiazepines Scrn Negative (NEGATIVE) 11/29/17 19:19 U Oth Cocaine Metabols Negative (NEGATIVE) 11/29/17 19:19 U Cannabinoids Screen Negative (NEGATIVE) 11/29/17 19:19 Alcohol, Quantitative < 10 mg/dl (0-10) 11/29/17 17:10 Absolute Lymphs (Flow) 1155 Cells/mcL (850-3900) 12/01/17 06:00 % CD4 Cells 7 Percent (30-61) L 12/01/17 06:00 Absolute CD4 Count 77 Cells/mcL (490-1740) L 12/01/17 06:00 T-Help/Suppress Ratio 0.11 Ratio (0.86-5.00) L 12/01/17 06:00 % CD8 Cells 60 Percent (12-42) H 12/01/17 06:00 Absolute CD8 Count 695 Cells/mcL (180-1170) 12/01/17 06:00 HSV Source Description Csf 11/29/17 18:30 HSV I DNA PCR Not detected (Not Detected) 11/29/17 18:30 HSV II DNA PCR Not detected (Not Detected) 11/29/17 18:30 HIV-1 RNA Qnt (RT-PCR) 5.67 (<1.30) H 11/29/17 20:20 Influenza Typ A,B (EIA) Negative for flu a/b (NEGATIVE) 11/30/17 19:15 BK Virus Spec Source Plasma 12/01/17 06:00 BK Virus DNA Qual PCR Not detected (Not Detected) 12/01/17 06:00 DILIA Virus DNA (PCR) Detected (Not Detected) H 12/01/17 06:00 - Hospital Course Hospital Course: 57 y/o M with a PMHx of HIV (currently not on HAART), seizures and previous episodes of AMS was admitted for evaluation and management of confusion. Pt able to state name, place. Pt CD4 77. Pt to d/c with Depakote, Bactrim, Lexapro. Follow up with HIV clinic and neurology. Discharge Exam - Head Exam Head Exam: NORMAL INSPECTION Discharge Plan - Discharge Medications Prescriptions: Divalproex [Depakote DR(*BID*)] 500 mg PO BID #60 tcp Escitalopram [Lexapro] 5 mg PO HS #30 tab Sulfamethoxazole/Trimethoprim [Bactrim DS Tab] 1 tab PO DAILY #30 tab - Follow Up Plan Condition: STABLE Disposition: HOME/ ROUTINE Patient education suggested?: Yes Instructions: Fever in Adults (GEN), Altered Mental Status (GEN) Additional Instructions: [facility] dec 12 a las 9:20am llevar papeles [facility] cavazos identificacion [employer] Services: Finishing [employer] Ana [phone] Referrals: [facility] [place] [Outside] <Artemio De Jesus - Last Filed: 12/05/17 14:28> Provider - Provider Date of Admission: 11/30/17 18:22 Attending physician: Yue Sanchez DO Primary care physician: BENITA FAMILY PROVIDER Hospital Course - Lab Results Lab Results: Micro Results 11/29/17 18:00 Cerebral Spinal Fluid Gram Stain - Final 11/29/17 18:00 Cerebral Spinal Fluid CSF Culture - Preliminary NO GROWTH AFTER 4 DAYS 12/02/17 05:30 Blood Blood Culture - Preliminary NO GROWTH AFTER 3 DAYS 12/02/17 05:30 Blood Blood Culture - Preliminary NO GROWTH AFTER 3 DAYS 11/30/17 19:30 Blood Blood Culture - Preliminary NO GROWTH AFTER 4 DAYS 11/30/17 19:00 Blood Blood Culture - Preliminary NO GROWTH AFTER 4 DAYS 11/29/17 15:18 Blood-Venous Blood Culture - Final NO GROWTH AFTER 5 DAYS 11/29/17 15:18 Blood-Venous Gram Stain - Final TEST NOT PERFORMED 11/29/17 15:00 Blood-Venous Blood Culture - Final NO GROWTH AFTER 5 DAYS 11/29/17 15:00 Blood-Venous Gram Stain - Final TEST NOT PERFORMED 11/29/17 18:30 Cerebral Spinal Fluid Gram Stain - Final 11/29/17 18:30 Cerebral Spinal Fluid CSF Culture - Final No growth. 11/29/17 19:19 Urine,Clean Catch Urine Culture - Final 10-50,000 CFU/ML. MULTIPLE SPECIES. PROBABLE CONTAMINATION. Most Recent Lab Values WBC 4.6 K/uL (4.8-10.8) L 12/05/17 06:15 RBC 4.04 Mil/uL (4.40-5.90) L 12/05/17 06:15 Hgb 12.5 g/dL (12.0-18.0) 12/05/17 06:15 Hct 37.6 % (35.0-51.0) 12/05/17 06:15 MCV 93.1 fl (80.0-94.0) 12/05/17 06:15 MCH 30.9 pg (27.0-31.0) 12/05/17 06:15 MCHC 33.2 g/dL (33.0-37.0) 12/05/17 06:15 RDW 13.2 % (11.5-14.5) 12/05/17 06:15 Plt Count 138 K/uL (130-400) 12/05/17 06:15 MPV 8.8 fl (7.2-11.7) 12/01/17 06:00 Neut % (Auto) 41.4 % (50.0-75.0) L 12/01/17 06:00 Lymph % (Auto) 40.1 % (20.0-40.0) H 12/01/17 06:00 [place] % (Auto) 13.0 % (0.0-10.0) H 12/01/17 06:00 Eos % (Auto) 5.1 % (0.0-4.0) H 12/01/17 06:00 Baso % (Auto) 0.4 % (0.0-2.0) 12/01/17 06:00 Neut # (Auto) 1.4 K/uL (1.8-7.0) L 12/01/17 06:00 Lymph # (Auto) 1.3 K/uL (1.0-4.3) 12/01/17 06:00 [place] # (Auto) 0.4 K/uL (0.0-0.8) 12/01/17 06:00 Eos # (Auto) 0.2 K/uL (0.0-0.7) 12/01/17 06:00 Baso # (Auto) 0.0 K/uL (0.0-0.2) 12/01/17 06:00 PT 11.4 Seconds (9.8-13.1) 11/29/17 15:09 INR 1.0 (0.9-1.2) 11/29/17 15:09 APTT 31.2 Seconds (25.6-37.1) 11/29/17 15:09 Sodium 140 mmol/l (132-148) 12/05/17 06:15 Potassium 4.3 MMOL/L (3.6-5.0) 12/05/17 06:15 Chloride 99 mmol/L (98-107) 12/05/17 06:15 Carbon Dioxide 29 mmol/L (22-30) 12/05/17 06:15 Anion Gap 16 (10-20) 12/05/17 06:15 BUN 19 mg/dl (9-20) 12/05/17 06:15 Creatinine 1.1 mg/dl (0.8-1.5) 12/05/17 06:15 Est GFR ( Amer) > 60 12/05/17 06:15 Est GFR (Non-Af Amer) > 60 12/05/17 06:15 Random Glucose 92 mg/dL (75-110) 12/05/17 06:15 Lactic Acid 0.9 MMOL/L (0.7-2.1) 11/29/17 15:09 Calcium 9.2 mg/dL (8.4-10.2) 12/05/17 06:15 Total Bilirubin 0.4 mg/dl (0.2-1.3) 12/01/17 06:00 AST 50 U/L (17-59) 12/01/17 06:00 ALT 49 U/L (21-72) 12/01/17 06:00 Alkaline Phosphatase 69 U/L (38-126) 12/01/17 06:00 Ammonia 28 umo/L (16-60) 11/29/17 15:57 Troponin I < 0.0120 ng/mL (0.00-0.120) 11/29/17 17:10 Total Protein 7.6 G/DL (6.3-8.2) 12/01/17 06:00 Albumin 3.5 g/dL (3.5-5.0) 12/01/17 06:00 Globulin 4.1 gm/dL (2.2-3.9) H 12/01/17 06:00 Albumin/Globulin Ratio 0.9 (1.0-2.1) L 12/01/17 06:00 Triglycerides 197 mg/DL (0-149) H 12/04/17 05:50 Cholesterol 114 mg/dL (0-199) 12/04/17 05:50 LDL Cholesterol Direct 35 mg/dL (0-129) 12/04/17 05:50 HDL Cholesterol 29 MG/DL (30-70) L 12/04/17 05:50 Procalcitonin < 0.05 NG/ML (0.19-0.49) L 11/30/17 19:00 Urine Color Yellow (YELLOW) 11/30/17 19:37 Urine Clarity Clear (Clear) 11/30/17 19:37 Urine pH 5.0 (5.0-8.0) 11/30/17 19:37 Ur Specific [place] 1.028 (1.003-1.030) 11/30/17 19:37 Urine Protein 30 mg/dL (NEGATIVE) 11/30/17 19:37 Urine Glucose (UA) Neg mg/dL (Normal) 11/30/17 19:37 Urine Ketones Negative mg/dL (NEGATIVE) 11/30/17 19:37 Urine Blood Negative (NEGATIVE) 11/30/17 19:37 Urine Nitrate Negative (NEGATIVE) 11/30/17 19:37 Urine Bilirubin Negative (NEGATIVE) 11/30/17 19:37 Urine Urobilinogen 0.2-1.0 mg/dL (0.2-1.0) 11/30/17 19:37 Ur Leukocyte Esterase Neg Florinda/uL (Negative) 11/30/17 19:37 Urine RBC (Auto) 3 /hpf (0-3) 11/30/17 19:37 Urine Microscopic WBC 1 /hpf (0-5) 11/30/17 19:37 Ur Squamous Epith Cells 2 /hpf (0-5) 11/29/17 19:45 Urine Bacteria Rare (<OCC) 11/29/17 19:45 Hyaline Casts 0-2 /hpf (0-2) 11/29/17 19:45 Fluid Type Spinal fluid 11/29/17 18:30 CSF Volume 2 mL (0-1) H 11/29/17 18:30 CSF Appearance Clear/colorless (CLEAR) 11/29/17 18:30 CSF WBC 3.0 /mm3 (0.0-5.0) 11/29/17 18:30 CSF RBC 1.0 /mm3 (0.0-0.0) H 11/29/17 18:30 CSF Total Cell Counted 3 (0-0) H 11/29/17 18:30 CSF Neutrophils 0 % (0-0) 11/29/17 18:30 CSF Lymphocytes 3.0 % (0-0) H 11/29/17 18:30 CSF Monos/Macrophages 0 % (0-0) 11/29/17 18:30 CSF Comment 11/29/17 18:30 CSF Glucose 48 mg/dL (40-70) 11/29/17 18:30 CSF Total Protein 78.0 mg/dL (12-60) H 11/29/17 18:30 CSF VDRL Nonreactive (Nonreactive) 11/29/17 18:30 CSF Cryptococcus Ag Negative (NEGATIVE) 11/29/17 18:30 Vancomycin Trough 13.0 ug/mL (5.0-10.0) H 12/01/17 20:32 Urine Opiates Screen Negative (NEGATIVE) 11/29/17 19:19 Urine Methadone Screen Negative (NEGATIVE) 11/29/17 19:19 Ur Barbiturates Screen Negative (NEGATIVE) 11/29/17 19:19 Valproic Acid 58.5 ug/mL (50.0-100.0) 12/04/17 05:50 Ur Phencyclidine Scrn Negative (NEGATIVE) 11/29/17 19:19 Ur Amphetamines Screen Negative (NEGATIVE) 11/29/17 19:19 U Benzodiazepines Scrn Negative (NEGATIVE) 11/29/17 19:19 U Oth Cocaine Metabols Negative (NEGATIVE) 11/29/17 19:19 U Cannabinoids Screen Negative (NEGATIVE) 11/29/17 19:19 Alcohol, Quantitative < 10 mg/dl (0-10) 11/29/17 17:10 Absolute Lymphs (Flow) 1155 Cells/mcL (850-3900) 12/01/17 06:00 % CD4 Cells 7 Percent (30-61) L 12/01/17 06:00 Absolute CD4 Count 77 Cells/mcL (490-1740) L 12/01/17 06:00 T-Help/Suppress Ratio 0.11 Ratio (0.86-5.00) L 12/01/17 06:00 % CD8 Cells 60 Percent (12-42) H 12/01/17 06:00 Absolute CD8 Count 695 Cells/mcL (180-1170) 12/01/17 06:00 HSV Source Description Csf 11/29/17 18:30 HSV I DNA PCR Not detected (Not Detected) 11/29/17 18:30 HSV II DNA PCR Not detected (Not Detected) 11/29/17 18:30 HIV-1 RNA Qnt (RT-PCR) 5.67 (<1.30) H 11/29/17 20:20 Influenza Typ A,B (EIA) Negative for flu a/b (NEGATIVE) 11/30/17 19:15 BK Virus Spec Source Plasma 12/01/17 06:00 BK Virus DNA Qual PCR Not detected (Not Detected) 12/01/17 06:00 DILIA Virus DNA (PCR) Detected (Not Detected) H 12/01/17 06:00
--- NOTE | 2017-12-05 16:37 | CP.PCM.PN ---
Subjective - Date & Time of Evaluation Date of Evaluation: 12/05/17 Time of Evaluation: 09:00 - Subjective Subjective: Patient seen and examined at bedside. Remains acutely confused today. Not oriented to time or place. Able to ambulate Objective - Vital Signs/Intake and Output Vital Signs (last 24 hours): Temp Pulse Resp BP Pulse Ox 99.2 F 86 20 103/65 99 12/05/17 16:21 12/05/17 16:21 12/05/17 16:21 12/05/17 16:21 12/05/17 16:21 - Medications Medications: Current Medications Divalproex Sodium (Depakote Dr(*Bid*)) 500 mg PO BID [facility] Last Admin: 12/05/17 09:35 Dose: 500 mg Enoxaparin Sodium (Lovenox) 40 mg SC DAILY [facility] PRN Reason: Protocol Last Admin: 12/05/17 09:35 Dose: 40 mg Escitalopram Oxalate (Lexapro) 5 mg PO HS [facility] Last Admin: 12/04/17 23:54 Dose: 5 mg Ibuprofen (Motrin Tab) 400 mg PO Q6 PRN PRN Reason: Fever >100.4 F Last Admin: 11/30/17 17:41 Dose: 400 mg Trimethoprim/Sulfamethoxazole (Bactrim Ds Tab) 1 tab PO DAILY [facility] PRN Reason: Protocol Last Admin: 12/05/17 09:35 Dose: 1 tab - Labs Labs: 12/05/17 06:15 12/05/17 06:15 PT 11.4 Seconds (9.8-13.1) 11/29/17 15:09 INR 1.0 (0.9-1.2) 11/29/17 15:09 APTT 31.2 Seconds (25.6-37.1) 11/29/17 15:09 - Additional Findings Additional findings: - Constitutional Appears: Well, No Acute Distress, Confused - Head Exam Head Exam: ATRAUMATIC - Eye Exam Eye Exam: EOMI, Normal appearance - ENT Exam ENT Exam: Mucous Membranes Moist - Neck Exam Neck Exam: Full ROM. absent: Meningismus - Respiratory Exam Respiratory Exam: Clear to Ausculation Bilateral, NORMAL BREATHING PATTERN - Cardiovascular Exam Cardiovascular Exam: REGULAR RHYTHM, +S1, +S2 - GI/Abdominal Exam GI & Abdominal Exam: Soft, Normal Bowel Sounds. absent: Rigid, Tenderness - Extremities Exam Extremities Exam: Full ROM, Normal Inspection - Neurological Exam Neurological Exam: Awake (Pt continues to be more confused. Pt is oriented in person, not able to answer questions. Pt seems to concentrate for a long time. ) Assessment and Plan - Assessment and Plan (Free Text) Plan: 57 y/o M with a PMHx of HIV (currently not on HAART), seizures and previous episodes of AMS was admitted for evaluation and management of confusion. Plan: 1. Altered Mental Status. - Seem to be aggravated today 12/04/17. - Hydrocephalus/Prior parenchymal calcifications/Prior infection with cysticercosis. - Pt extensively worked up 3 months ago, due to prior infection and calcifications, prior consult with ID: NO antiparasitic indicated given calcifications. 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 - LP: Gram stain-negative , CSF showed 3 WBC , mostly Lymphocytes. CSF protein 78-high. CSF VDRL and Cryptococcus antigen-NEGATIVE. Influenza negative. - Currently on IV Acyclovir. - Neurology, Neurosurgery, Infectious Disease on board. - F/U AFB, Histoplasmosis, Toxoplasmosis, CSF Acid fast. - MRA head and neck showed NO evidence of stenosis or occlusion. - On Lexapro. Namenda on hold. - BK virus PCR-not detected. DILIA virus detected. HSV PCR not detected. HAART needs to be re-initiated. - MRI Brain, not performed due to pt's poor compliance, not able to stay still even w/ Ativan. 2. Fever - Last episode on 11/30/17-afternoon, temp 101.8 degF. - Unclear etiology. - CXR on 11/30/17 showed minor b/l bibasilar atelectasis, L>R, developing LLL infiltrate. - Urine CX with multiple species-probable contamination. - CSF Cx shows NO growth-final report. - Blood Cx shows NO growth. - Infectology on board, Dr Her. - IV Acyclovir - Ibuprofen PRN. - F/U AFB, Histoplasmosis, Toxoplasmosis, CSF Acid fast. 3. Hx of Seizures - Keppra discontinued by neurology. - Hx of seizures prob sec to [employer] calcifications with hydrocephalus. - Neurology on board, Dr Torres. - C/w Valproate. 4. AIDS - Pt did not want to follow up at HIV clinic in prior discharge as he stated he was returning to [place]. - Previous CD4 count 128-low on 08/17/17. - HIV viral load 6.47 logcopies/mL. - Infectology on board, Dr Her. - Today's CD 4 count 77-low - Today's HIV viral load 5.67-high - Bactrim for PCP prophylaxis 5. Hyperlipidemia - Trig 197-high, HDL 29-low. - Monitor lipid panel, f/u with PMD. 6. DVT prophylaxis - SCD for now. - Lovenox SC daily.
[2017-12-06] MEDS: Divalproex 500 mg DR(BID formulation) PO SCH ×2 (09:26→17:26)
[2017-12-06] MEDS: Tmp-Smz 800 mg-160 mg DS Tab PO SCH (09:26)
[2017-12-06] MEDS: Enoxaparin 40 mg Syringe SC SCH (09:27)
--- NOTE | 2017-12-06 16:18 | CP.PCM.PN ---
Subjective - Date & Time of Evaluation Date of Evaluation: 12/06/17 Time of Evaluation: 12:30 - Subjective Subjective: Patient seen and examined bedside. Awake and alert, confused today. knows that he is in hospital knows his birthday but can not give more information or details in regard to his life, where he lives, family members,seems to have difficulty remembering things, restless, holding his head and shakes his head every time you ask a question. hemodynamically stable, afebrile No acute issues overnight Objective - Vital Signs/Intake and Output Vital Signs (last 24 hours): Temp Pulse Resp BP Pulse Ox 99.1 F 88 18 107/71 97 12/06/17 15:54 12/06/17 15:54 12/06/17 15:54 12/06/17 15:54 12/06/17 15:54 - Medications Medications: Current Medications Divalproex Sodium (Depakote Dr(*Bid*)) 500 mg PO BID [facility] Last Admin: 12/06/17 09:26 Dose: 500 mg Enoxaparin Sodium (Lovenox) 40 mg SC DAILY [facility] PRN Reason: Protocol Last Admin: 12/06/17 09:27 Dose: 40 mg Escitalopram Oxalate (Lexapro) 5 mg PO HS [facility] Last Admin: 12/05/17 21:40 Dose: 5 mg Ibuprofen (Motrin Tab) 400 mg PO Q6 PRN PRN Reason: Fever >100.4 F Last Admin: 11/30/17 17:41 Dose: 400 mg Trimethoprim/Sulfamethoxazole (Bactrim Ds Tab) 1 tab PO DAILY [facility] PRN Reason: Protocol Last Admin: 12/06/17 09:26 Dose: 1 tab - Labs Labs: 12/05/17 06:15 12/05/17 06:15 PT 11.4 Seconds (9.8-13.1) 11/29/17 15:09 INR 1.0 (0.9-1.2) 11/29/17 15:09 APTT 31.2 Seconds (25.6-37.1) 11/29/17 15:09 Assessment and Plan - Assessment and Plan (Free Text) Assessment: 57 year old male with PMH AIDS and seizure disorder not compliant with medications, homeless , seen in ER several times with break through seizures and AMS brought To ER via BLS for evaluation for AMS . Apparently patient walked into a field interviewer office today asking to talk to one.Patient appeared condfued so EMs was called and he was brought to ER.Patient unable to describe why he is here or why he went to the field interviewer office He is HD stable, afebrile, no WBC, head CT no interval change. LP completed in ER, showed no active infection, HSV negative CD4 count 77. ID, neuro and neurosurgery consulted . Patient with fluctuations of mental status.He was totally AAOx3 2 dory prior and able to provide more details about himself but at present has confusion, unable to answer questions, has difficulty answering questions or finding words 1. Altered Mental Status -- with fluctuations possibly related to HIV encephalopthy -- no infection Ct head showed Hydrocephalus/Prior parenchymal calcifications/Prior infection with cysticercosis.No interval change,from prior CT, marked dilatation 3rd and lateral ventricles, chronic compensated obstructive hydrocephalus with block at level of aqueduct of Sylv[place]. MRA head and neck showed NO evidence of stenosis or occlusion. LP showed no meningitis , HSV negative , DILIA virus positive,CSF VDRL and Cryptococcus antigen-NEGATIVE. Influenza negative. was given acyclovir initially prophylactically and at present discontinued Neurology, Neurosurgery, psychiatry and Infectious Disease on board. Started on Depakote for mood stabilizer and seziure control, Lexapro and namenda CD 4 count 77. Patient has AIDS. ID consulted and referred to [facility] Will need to start treatment for AIDS 2. Fever--resolved Last episode on 11/30/17-afternoon, temp 101.8 degF. Unclear etiology. no source of infection found 3. Hx of Seizures Started Depakote not complaint with treatment Neuro consulted 4. AIDS Pt did not want to follow up at HIV clinic in prior discharge as he stated he was returning to [place]. CD4 count 77 ,HIV viral load 5.67 logcopies/mL. Id consulted will need to start antiretroviral regiment Started Bactrim for PCP prophylaxis 5. Hyperlipidemia Trig 197-high, HDL 29-low. 6. DVT prophylaxis SCD for now. Lovenox SC daily.
[2017-12-07] MEDS: Tmp-Smz 800 mg-160 mg DS Tab PO SCH (09:53)
[2017-12-07] MEDS: Enoxaparin 40 mg Syringe SC SCH (09:54)
[2017-12-07] MEDS: Divalproex 500 mg DR(BID formulation) PO SCH ×2 (09:54→16:49)
--- NOTE | 2017-12-07 10:30 | CP.PCM.PN ---
Subjective - Date & Time of Evaluation Date of Evaluation: 12/07/17 Time of Evaluation: 11:30 - Subjective Subjective: Patient seen and examined bedside. Appears to be having memory problems, unable to provide answers with difficulty finding words, seems to be struggling to think and find answers , states what;s happening tome , holds his head with his hand Awake , alert , with steady gait , follows simple commands Hemodynamically stable , afebrile No acute issues overnight Objective - Vital Signs/Intake and Output Vital Signs (last 24 hours): Temp Pulse Resp BP Pulse Ox 99.3 F 82 20 118/81 96 12/07/17 08:00 12/07/17 08:00 12/07/17 08:00 12/07/17 08:00 12/07/17 08:00 - Medications Medications: Current Medications Divalproex Sodium (Depakote Dr(*Bid*)) 500 mg PO BID [facility] Last Admin: 12/07/17 09:54 Dose: 500 mg Enoxaparin Sodium (Lovenox) 40 mg SC DAILY [facility] PRN Reason: Protocol Last Admin: 12/07/17 09:54 Dose: 40 mg Escitalopram Oxalate (Lexapro) 5 mg PO HS [facility] Last Admin: 12/06/17 22:04 Dose: 5 mg Ibuprofen (Motrin Tab) 400 mg PO Q6 PRN PRN Reason: Fever >100.4 F Last Admin: 11/30/17 17:41 Dose: 400 mg Memantine (Namenda) 5 mg PO DAILY [facility] Last Admin: 12/07/17 09:54 Dose: 5 mg Trimethoprim/Sulfamethoxazole (Bactrim Ds Tab) 1 tab PO DAILY [facility] PRN Reason: Protocol Last Admin: 12/07/17 09:53 Dose: 1 tab - Labs Labs: 12/05/17 06:15 12/05/17 06:15 PT 11.4 Seconds (9.8-13.1) 11/29/17 15:09 INR 1.0 (0.9-1.2) 11/29/17 15:09 APTT 31.2 Seconds (25.6-37.1) 11/29/17 15:09 - Constitutional Appears: Well, Non-toxic, No Acute Distress - Head Exam Head Exam: ATRAUMATIC, NORMAL INSPECTION, NORMOCEPHALIC - Eye Exam Eye Exam: EOMI, Normal appearance, PERRL Pupil Exam: NORMAL ACCOMODATION - ENT Exam ENT Exam: Mucous Membranes Moist, Normal Exam - Neck Exam Neck Exam: Full ROM, Normal Inspection - Respiratory Exam Respiratory Exam: Clear to Ausculation Bilateral, NORMAL BREATHING PATTERN. absent: Rales, Rhonchi, Wheezes - Cardiovascular Exam Cardiovascular Exam: REGULAR RHYTHM, RRR, +S1, +S2. absent: JVD - GI/Abdominal Exam GI & Abdominal Exam: Soft, Normal Bowel Sounds. absent: Distended, Guarding, Tenderness, Rebound - Rectal Exam Rectal Exam: Deferred - Extremities Exam Extremities Exam: Full ROM, Normal Capillary Refill, Normal Inspection. absent : Calf Tenderness, Pedal Edema - Back Exam Back Exam: NORMAL INSPECTION - Neurological Exam Neurological Exam: Alert, Awake, CN II-XII Intact, Normal Gait Additional comments: confused ,unable to answer questions or find answers - Psychiatric Exam Psychiatric exam: Flat Affect - Skin Skin Exam: Dry, Intact, Normal Color, Warm Assessment and Plan - Assessment and Plan (Free Text) Assessment: 57 year old male with PMH AIDS and seizure disorder not compliant with medications, homeless , seen in ER several times with break through seizures and AMS brought To ER via BLS for evaluation for AMS . Apparently patient walked into a forensic psychologist office today asking to talk to one.Patient appeared condfued so EMs was called and he was brought to ER.Patient unable to describe why he is here or why he went to the forensic psychologist office He is HD stable, afebrile, no WBC, head CT no interval change from prior admission ( multiple tiny calcific densities scattered throughout the subarachnoid spaces consistent with prior exposure to cysticercosis. Marked dilatation 3rd and lateral ventricles with relatively normal-appearing 4th ventricle. 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 Low- attenuation white matter changes could represent some combination of end-stage gliosis related to prolonged hydrocephalus however concomitant chronic sequela of small vessel disease may contribute. 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 No evidence of acute intracranial hemorrhage. LP completed in ER since patient was febrile and confused on admission and showed no active infection, HSV negative CD4 count 77. ID, neuro and neurosurgery consulted . Patient with fluctuations of mental status.He was AAOx3 3 day prior and able to provide detailed history about himself and where he comes from but at present has confusion, unable to answer questions, has difficulty answering questions or finding words, difficulty remembering 1. Altered Mental Status -- with fluctuations possibly related to HIV encephalopthy Ct head showed Hydrocephalus/Prior parenchymal calcifications/Prior infection with cysticercosis.No interval change,from prior CT, marked dilatation 3rd and lateral ventricles, chronic compensated obstructive hydrocephalus with block at level of aqueduct of [place]. MRA head and neck showed NO evidence of stenosis or occlusion. LP showed no meningitis , HSV negative , DILIA virus positive,CSF VDRL and Cryptococcus antigen-NEGATIVE. Influenza negative. was given acyclovir initially prophylactically and at present discontinued Neurology, Neurosurgery, psychiatry and Infectious Disease on board. 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 Patient has AIDS. ID consulted and referred to [facility] Will need to start treatment for AIDS 2. Fever--resolved Last episode on 11/30/17-afternoon, temp 101.8 degF. Unclear etiology. no source of infection found 3. Hx of Seizures Started Depakote not complaint with treatment Neuro consulted 4. AIDS Pt did not want to follow up at HIV clinic in prior discharge as he stated he was returning to [place]. CD4 count 77 ,HIV viral load 5.67 logcopies/mL. Id consulted will need to start antiretroviral regiment Started Bactrim for PCP prophylaxis 5. Hyperlipidemia Trig 197-high, HDL 29-low. 6. DVT prophylaxis SCD for now. Lovenox SC daily.
--- NOTE | 2017-12-08 08:44 | CP.PCM.PN ---
Subjective - Date & Time of Evaluation Date of Evaluation: 12/08/17 Time of Evaluation: 10:00 - Subjective Subjective: Patient seen and examined bedside. Awake , alert , with steady gait , follows simple commands Appears to be having memory problems, unable to provide answers with difficulty finding words, seems to be struggling to think and find answers Hemodynamically stable , afebrile No acute issues overnight Objective - Vital Signs/Intake and Output Vital Signs (last 24 hours): Temp Pulse Resp BP Pulse Ox 97.3 F L 91 H 19 109/75 98 12/08/17 08:39 12/08/17 08:39 12/08/17 08:39 12/08/17 08:39 12/08/17 08:39 - Medications Medications: Current Medications Divalproex Sodium (Depakote Dr(*Bid*)) 500 mg PO BID [facility] Last Admin: 12/07/17 16:49 Dose: 500 mg Enoxaparin Sodium (Lovenox) 40 mg SC DAILY [facility] PRN Reason: Protocol Last Admin: 12/07/17 09:54 Dose: 40 mg Escitalopram Oxalate (Lexapro) 5 mg PO HS [facility] Last Admin: 12/07/17 22:19 Dose: 5 mg Ibuprofen (Motrin Tab) 400 mg PO Q6 PRN PRN Reason: Fever >100.4 F Last Admin: 11/30/17 17:41 Dose: 400 mg Memantine (Namenda) 5 mg PO DAILY [facility] Last Admin: 12/07/17 09:54 Dose: 5 mg Trimethoprim/Sulfamethoxazole (Bactrim Ds Tab) 1 tab PO DAILY [facility] PRN Reason: Protocol Last Admin: 12/07/17 09:53 Dose: 1 tab - Labs Labs: 12/05/17 06:15 12/05/17 06:15 PT 11.4 Seconds (9.8-13.1) 11/29/17 15:09 INR 1.0 (0.9-1.2) 11/29/17 15:09 APTT 31.2 Seconds (25.6-37.1) 11/29/17 15:09 - Constitutional Appears: Non-toxic, No Acute Distress - Head Exam Head Exam: ATRAUMATIC, NORMAL INSPECTION, NORMOCEPHALIC - Eye Exam Eye Exam: EOMI, Normal appearance, PERRL Pupil Exam: NORMAL ACCOMODATION - ENT Exam ENT Exam: Mucous Membranes Moist, Normal Exam - Neck Exam Neck Exam: Full ROM, Normal Inspection - Respiratory Exam Respiratory Exam: Clear to Ausculation Bilateral, NORMAL BREATHING PATTERN. absent: Rales, Rhonchi, Wheezes - Cardiovascular Exam Cardiovascular Exam: REGULAR RHYTHM, RRR, +S1, +S2. absent: JVD - GI/Abdominal Exam GI & Abdominal Exam: Soft, Normal Bowel Sounds. absent: Distended, Guarding, Tenderness, Rebound - Rectal Exam Rectal Exam: Deferred - Extremities Exam Extremities Exam: Full ROM, Normal Capillary Refill, Normal Inspection - Back Exam Back Exam: NORMAL INSPECTION - Neurological Exam Neurological Exam: Alert, Awake, CN II-XII Intact. absent: Oriented x3 Additional comments: not oriented to place or time with memory problems - Psychiatric Exam Psychiatric exam: Flat Affect - Skin Skin Exam: Dry, Normal Color, Warm Assessment and Plan - Assessment and Plan (Free Text) Assessment: 57 year old male with PMH AIDS and seizure disorder not compliant with medications, homeless , seen in ER several times with break through seizures and AMS brought To ER via BLS for evaluation for AMS . Apparently patient walked into a commercial painter office today asking to talk to one.Patient appeared condfued so EMs was called and he was brought to ER.Patient unable to describe why he is here or why he went to the commercial painter office He is HD stable, afebrile, no WBC, head CT no interval change from prior admission ( multiple tiny calcific densities scattered throughout the subarachnoid spaces consistent with prior exposure to cysticercosis. Marked dilatation 3rd and lateral ventricles with relatively normal-appearing 4th ventricle. 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 Low- attenuation white matter changes could represent some combination of end-stage gliosis related to prolonged hydrocephalus however concomitant chronic sequela of small vessel disease may contribute. 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 No evidence of acute intracranial hemorrhage. LP completed in ER since patient was febrile and confused on admission and showed no active infection, HSV negative CD4 count 77. ID, neuro and neurosurgery consulted . Patient with fluctuations of mental status.He was AAOx3 several days prior and able to provide detailed history about himself and where he comes from but at present unable to answer even simple questions or give any history ,follows commands 1. Altered Mental Status -- with fluctuations possibly related to HIV encephalopthy Ct head showed Hydrocephalus/Prior parenchymal calcifications/Prior infection with cysticercosis.No interval change,from prior CT, marked dilatation 3rd and lateral ventricles, chronic compensated obstructive hydrocephalus with block at level of aqueduct of [place]. MRA head and neck showed NO evidence of stenosis or occlusion. LP showed no meningitis , HSV negative , DILIA virus positive,CSF VDRL and Cryptococcus antigen-NEGATIVE. Influenza negative. was given acyclovir initially prophylactically and at present discontinued Neurology, Neurosurgery, psychiatry and Infectious Disease on board. 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 Patient has AIDS. ID consulted and referred to [facility] Will need to start treatment for AIDS if his mental status shows no improvement he will need permanant placement and guardianship 2. Fever--resolved Last episode on 11/30/17-afternoon, temp 101.8 degF. Unclear etiology. no source of infection found 3. Hx of Seizures Started Depakote not complaint with treatment Neuro consulted 4. AIDS Pt did not want to follow up at HIV clinic in prior discharge as he stated he was returning to [place]. CD4 count 77 ,HIV viral load 5.67 logcopies/mL. Id consulted will need to start antiretroviral regiment Started Bactrim for PCP prophylaxis 5. Hyperlipidemia Trig 197-high, HDL 29-low. 6. DVT prophylaxis SCD for now. Lovenox SC daily.
[2017-12-08] MEDS: Enoxaparin 40 mg Syringe SC SCH (09:46)
[2017-12-08] MEDS: Tmp-Smz 800 mg-160 mg DS Tab PO SCH (09:47)
[2017-12-08] MEDS: Divalproex 500 mg DR(BID formulation) PO SCH ×3 (09:47→17:22)
--- NOTE | 2017-12-08 11:58 | CP.PCM.PN ---
Subjective - Date & Time of Evaluation Date of Evaluation: 12/08/17 Time of Evaluation: 11:55 - Subjective Subjective: Mr. Mejía was seen and examined at the bedside. He is alert, oriented with having memory problems, unable to provide answers with difficulty finding words. He denies any headache, dizziness, lightheadedness, nausea, or vomiting. He follows simple commands. There was no untoward events overnight. Objective - Vital Signs/Intake and Output Vital Signs (last 24 hours): Temp Pulse Resp BP Pulse Ox 97.3 F L 91 H 19 109/75 98 12/08/17 08:39 12/08/17 08:39 12/08/17 08:39 12/08/17 08:39 12/08/17 08:39 - Medications Medications: Current Medications Divalproex Sodium (Depakote Dr(*Bid*)) 500 mg PO BID [facility] Last Admin: 12/08/17 09:47 Dose: 500 mg Enoxaparin Sodium (Lovenox) 40 mg SC DAILY [facility] PRN Reason: Protocol Last Admin: 12/08/17 09:46 Dose: 40 mg Escitalopram Oxalate (Lexapro) 5 mg PO HS [facility] Last Admin: 12/07/17 22:19 Dose: 5 mg Ibuprofen (Motrin Tab) 400 mg PO Q6 PRN PRN Reason: Fever >100.4 F Last Admin: 11/30/17 17:41 Dose: 400 mg Memantine (Namenda) 5 mg PO DAILY [facility] Last Admin: 12/08/17 09:47 Dose: 5 mg Trimethoprim/Sulfamethoxazole (Bactrim Ds Tab) 1 tab PO DAILY [facility] PRN Reason: Protocol Last Admin: 12/08/17 09:47 Dose: 1 tab - Labs Labs: 12/05/17 06:15 12/05/17 06:15 PT 11.4 Seconds (9.8-13.1) 11/29/17 15:09 INR 1.0 (0.9-1.2) 11/29/17 15:09 APTT 31.2 Seconds (25.6-37.1) 11/29/17 15:09 - Constitutional Appears: No Acute Distress - Head Exam Head Exam: NORMAL INSPECTION - Neurological Exam Neurological Exam: Alert, Awake Neuro motor strength exam: Left Upper Extremity: 5, Right Upper Extremity: 5, Left Lower Extremity: 5, Right Lower Extremity: 5 Additional comments: Neurological unchanged from previous examination. Assessment and Plan (1) Generalized seizure Assessment & Plan: Case discussed with Dr. Torres, continue all current medical regimen including AED. Recommend to see an outpatient neurologist upon discharge. Status: Acute (2) Altered mental status Assessment & Plan: Case discussed with Dr. Torres, continue all medical regimen including anti-viral therapy. There is no new recommendations from neurology. Status: Acute
[2017-12-09] MEDS: Tmp-Smz 800 mg-160 mg DS Tab PO SCH (09:19)
[2017-12-09] MEDS: Divalproex 500 mg DR(BID formulation) PO SCH ×2 (09:19→16:20)
--- NOTE | 2017-12-09 11:48 | CP.PCM.PN ---
Subjective - Date & Time of Evaluation Date of Evaluation: 12/09/17 Time of Evaluation: 11:00 - Subjective Subjective: Pt has episodes of confusion He is alert, oriented to person and place follows commands accdg to RN, pt would just go to other patient rooms thus disturbing other patients though he can be redirected by inperson staff, he is not directable by the [employer] 1:1 started for now will also increase his Lexapro dose and give him prn Ativan Pt is afebrile ambulatory denies CP no SOB follows simple commands and able o answer simple questions Objective - Vital Signs/Intake and Output Vital Signs (last 24 hours): Temp Pulse Resp BP Pulse Ox 99 F 85 20 103/68 94 L 12/09/17 08:13 12/09/17 08:13 12/09/17 08:13 12/09/17 08:13 12/09/17 08:13 - Medications Medications: Current Medications Divalproex Sodium (Depakote Dr(*Bid*)) 500 mg PO BID [facility] Last Admin: 12/09/17 09:19 Dose: 500 mg Escitalopram Oxalate (Lexapro) 5 mg PO [facility] Last Admin: 12/08/17 21:08 Dose: 5 mg Ibuprofen (Motrin Tab) 400 mg PO Q6 PRN PRN Reason: Fever >100.4 F Last Admin: 11/30/17 17:41 Dose: 400 mg Memantine (Namenda) 5 mg PO DAILY [facility] Last Admin: 12/09/17 09:19 Dose: 5 mg Trimethoprim/Sulfamethoxazole (Bactrim Ds Tab) 1 tab PO DAILY [facility] PRN Reason: Protocol Last Admin: 12/09/17 09:19 Dose: 1 tab - Labs Labs: 12/05/17 06:15 12/05/17 06:15 PT 11.4 Seconds (9.8-13.1) 11/29/17 15:09 INR 1.0 (0.9-1.2) 11/29/17 15:09 APTT 31.2 Seconds (25.6-37.1) 11/29/17 15:09 - Constitutional Appears: No Acute Distress, Confused - Head Exam Head Exam: NORMAL INSPECTION, NORMOCEPHALIC - Eye Exam Eye Exam: EOMI, Normal appearance Pupil Exam: NORMAL ACCOMODATION - ENT Exam ENT Exam: Mucous Membranes Moist, Normal External Ear Exam - Neck Exam Neck Exam: Full ROM. absent: Meningismus - Respiratory Exam Respiratory Exam: NORMAL BREATHING PATTERN. absent: Respiratory Distress - Cardiovascular Exam Cardiovascular Exam: REGULAR RHYTHM, +S1, +S2 - GI/Abdominal Exam GI & Abdominal Exam: Soft, Normal Bowel Sounds. absent: Tenderness - Extremities Exam Extremities Exam: Full ROM, Normal Capillary Refill. absent: Calf Tenderness - Back Exam Back Exam: Full ROM. 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 Apparently patient walked into a pit operator office on the day of admission asking to talk to one. Patient appeared confused so EMs was called and he was brought to ER. Patient unable to why he is here or why he went to the pit operator office He is HD stable, afebrile, no WBC, head CT no interval change from prior admission ( multiple tiny calcific densities scattered throughout the subarachnoid spaces consistent with prior exposure to cysticercosis. Marked dilatation 3rd and lateral ventricles with relatively normal-appearing 4th ventricle. 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 Low- attenuation white matter changes could represent some combination of end-stage gliosis related to prolonged hydrocephalus however concomitant chronic sequela of small vessel disease may contribute. 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 No evidence of acute intracranial hemorrhage. LP completed in ER since patient was febrile and confused on admission and showed no active infection, HSV negative CD4 count 77. ID, neuro and neurosurgery consulted . Patient with fluctuations of mental status.He was AAOx3 several days prior and able to provide detailed history about himself and where he comes from but at present unable to answer even simple questions or give any history ,follows commands 1. Altered Mental Status -- with fluctuations ? sec to AIDS Dementia with behavioral changes vs sec to COMPENSATION INTERN pathology ( Hydrocephalus) Ct head showed Hydrocephalus/Prior parenchymal calcifications/Prior infection with cysticercosis.No interval change,from prior CT, marked dilatation 3rd and lateral ventricles, chronic compensated obstructive hydrocephalus with block at level of aqueduct of Sylvius. MRA head and neck showed NO evidence of stenosis or occlusion. LP showed no meningitis , HSV negative , DILIA virus positive,CSF VDRL and Cryptococcus antigen-NEGATIVE. Influenza negative. was given acyclovir initially empirically and at present discontinued Neurology, Neurosurgery, psychiatry and Infectious Disease on board. 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 Patient has AIDS. ID consulted and referred [facility] Will need to start treatment for AIDS if his mental status shows no improvement he will need permanant placement and guardianship 2. Fever--resolved Last episode on 11/30/17-afternoon, temp 101.8 degF. Unclear etiology. no source of infection found 3. Hx of Seizures Started Depakote not compliant with treatment Neuro consulted 4. AIDS Pt did not follow up at HIV clinic after discharge as he stated he was returning to [place]. CD4 count 77 ,HIV viral load 5.67 logcopies/mL. ID consulted ? start HAART Started Bactrim for PCP prophylaxis 5. Hyperlipidemia Trig 197-high, HDL 29-low. 6. DVT prophylaxis SCD for now. Lovenox SC daily.
[2017-12-10] MEDS: Tmp-Smz 800 mg-160 mg DS Tab PO SCH (08:37)
[2017-12-10] MEDS: Divalproex 500 mg DR(BID formulation) PO SCH ×2 (08:38→16:35)
--- NOTE | 2017-12-10 09:13 | CP.PCM.PN ---
Subjective - Date & Time of Evaluation Date of Evaluation: 12/10/17 Time of Evaluation: 09:00 - Subjective Subjective: Pt has episodes of confusion and has been bothering other patients - now on 1:1 Obs He is alert, oriented to person and place, ambulating around the unit though he can be redirected by inperson staff, he is not directable by the [employer] Pt is afebrile ambulatory denies CP no SOB follows simple commands and able to answer simple questions Objective - Vital Signs/Intake and Output Vital Signs (last 24 hours): Temp Pulse Resp BP Pulse Ox 97.4 F L 77 20 103/67 97 12/10/17 08:14 12/10/17 08:14 12/10/17 08:14 12/10/17 08:14 12/10/17 08:14 - Medications Medications: Current Medications Divalproex Sodium (Depakote Dr(*Bid*)) 500 mg PO BID [facility] Last Admin: 12/10/17 08:38 Dose: 500 mg Escitalopram Oxalate (Lexapro) 10 mg PO DAILY [facility] Last Admin: 12/10/17 08:38 Dose: 10 mg Ibuprofen (Motrin Tab) 400 mg PO Q6 PRN PRN Reason: Fever >100.4 F Last Admin: 11/30/17 17:41 Dose: 400 mg Lorazepam (Ativan) 0.5 mg IVP Q8 PRN PRN Reason: Agitation Memantine (Namenda) 5 mg PO DAILY [facility] Last Admin: 12/10/17 08:39 Dose: 5 mg Trimethoprim/Sulfamethoxazole (Bactrim Ds Tab) 1 tab PO DAILY [facility] PRN Reason: Protocol Last Admin: 12/10/17 08:37 Dose: 1 tab - Labs Labs: 12/05/17 06:15 12/05/17 06:15 PT 11.4 Seconds (9.8-13.1) 11/29/17 15:09 INR 1.0 (0.9-1.2) 11/29/17 15:09 APTT 31.2 Seconds (25.6-37.1) 11/29/17 15:09 - Constitutional Appears: No Acute Distress, Confused - Head Exam Head Exam: NORMAL INSPECTION, NORMOCEPHALIC - Eye Exam Eye Exam: EOMI, Normal appearance Pupil Exam: NORMAL ACCOMODATION - ENT Exam ENT Exam: Mucous Membranes Moist, Normal External Ear Exam - Neck Exam Neck Exam: Full ROM. absent: Meningismus - Respiratory Exam Respiratory Exam: NORMAL BREATHING PATTERN. absent: Respiratory Distress - Cardiovascular Exam Cardiovascular Exam: REGULAR RHYTHM, +S1, +S2 - GI/Abdominal Exam GI & Abdominal Exam: Soft, Normal Bowel Sounds. absent: Tenderness - Extremities Exam Extremities Exam: Full ROM, Normal Capillary Refill. absent: Calf Tenderness - Back Exam Back Exam: Full ROM. 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 Apparently patient walked into a editor continuity and script office on the day of admission asking to talk to one. Patient appeared confused so EMs was called and he was brought to ER. Patient unable to why he is here or why he went to the editor continuity and script office He is HD stable, afebrile, no WBC, head CT no interval change from prior admission Multiple tiny calcific densities scattered throughout the subarachnoid spaces consistent with prior exposure to cysticercosis. Marked dilatation 3rd and lateral ventricles with relatively normal-appearing 4th ventricle. 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 Low-attenuation white matter changes could represent some combination of end-stage gliosis related to prolonged hydrocephalus however concomitant chronic sequela of small vessel disease may contribute. 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 No evidence of acute intracranial hemorrhage. LP done in ER since patient was febrile and confused on admission and this showed no active infection, HSV negative CD4 count 77. ID, Neuro and Neurosurgery consulted . 1. Altered Mental Status -- with fluctuations ? 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 MRA head and neck showed NO evidence of stenosis or occlusion. LP showed no meningitis , HSV negative , DILIA virus positive,CSF VDRL and Cryptococcus antigen-NEGATIVE. Influenza negative. Initially started on IV Vanco , Ceftriaxone and Acyclovir- now off abx Neurology, Neurosurgery, psychiatry and Infectious Disease on board. 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 Fever--resolved no other source of infection found 3. Hx of Seizures Started Depakote Neuro consulted 4. AIDS CD4 count 77 ,HIV viral load 5.67 logcopies/mL. ID consulted ? start HAART Started Bactrim for PCP prophylaxis 5. Hyperlipidemia Trig 197-high, HDL 29-low. 6. DVT prophylaxis SCD for now. Lovenox SC daily.
[2017-12-10] MEDS ORDERED: Iodixanol 320 MG/ML 100 ML BOTTLE IV ONE (10:55)
[2017-12-10] MEDS ORDERED: Sodium Chloride 0.9% 100 ML ONE (10:55)
--- NOTE | 2017-12-10 12:04 | CP.PCM.PN ---
Subjective - Date & Time of Evaluation Date of Evaluation: 12/10/17 Time of Evaluation: 12:03 - Subjective Subjective: Mr. Mejía was seen and examined at the bedside. He is awake, confused. He is unable to follow or answer questions . He moves all his extremities spontaneously. He is on 1:1 sitter for patient safety. MRA of the head showed no evidence of occlusion significant stenosis. Possible small venous angioma within the right lateral basal ganglia. The possibility of a small aneurysm would be less likely in this location.There was no untoward events overnight. Objective - Vital Signs/Intake and Output Vital Signs (last 24 hours): Temp Pulse Resp BP Pulse Ox 97.4 F L 77 20 103/67 97 12/10/17 08:14 12/10/17 08:14 12/10/17 08:14 12/10/17 08:14 12/10/17 08:14 - Medications Medications: Current Medications Divalproex Sodium (Depakote Dr(*Bid*)) 500 mg PO BID [facility] Last Admin: 12/10/17 08:38 Dose: 500 mg Escitalopram Oxalate (Lexapro) 10 mg PO DAILY [facility] Last Admin: 12/10/17 08:38 Dose: 10 mg Ibuprofen (Motrin Tab) 400 mg PO Q6 PRN PRN Reason: Fever >100.4 F Last Admin: 11/30/17 17:41 Dose: 400 mg Lorazepam (Ativan) 0.5 mg IVP Q8 PRN PRN Reason: Agitation Memantine (Namenda) 5 mg PO DAILY [facility] Last Admin: 12/10/17 08:39 Dose: 5 mg Trimethoprim/Sulfamethoxazole (Bactrim Ds Tab) 1 tab PO DAILY [facility] PRN Reason: Protocol Last Admin: 12/10/17 08:37 Dose: 1 tab - Labs Labs: 12/05/17 06:15 12/05/17 06:15 PT 11.4 Seconds (9.8-13.1) 11/29/17 15:09 INR 1.0 (0.9-1.2) 11/29/17 15:09 APTT 31.2 Seconds (25.6-37.1) 11/29/17 15:09 - Constitutional Appears: No Acute Distress - Head Exam Head Exam: NORMAL INSPECTION - Neurological Exam Neurological Exam: Awake Neuro motor strength exam: Left Upper Extremity: 5, Right Upper Extremity: 5, Left Lower Extremity: 5, Right Lower Extremity: 5 Additional comments: He is confused unable to follow simple commands Assessment and Plan (1) Generalized seizure Assessment & Plan: Case discussed with Dr. Torres, continue all current medical regimen. Recommend to monitor depakote level. Status: Acute (2) Altered mental status Assessment & Plan: Case discussed with Dr. Torres, continue all current medical regimen. Recommend CTA of the head and neck to evaluate the small venous angioma. Status: Acute
--- NOTE | 2017-12-10 12:10 | CT ---
PROCEDURE: CT Angiography of the Brain. HISTORY: small venous angioma COMPARISON: None available. TECHNIQUE: CT angiography of the intracranial and cervical arteries was performed. Coronal and sagittal maximum intensity projection reformated images were generated. Contrast Dose: Visipaque 320, 100 cc Radiation dose:Total exam DLP = 541.79 mGy-cm. This CT exam was performed using one or more of the following dose reduction techniques: Automated exposure control, adjustment of the mA and/or kV according to patient size, and/or use of iterative reconstruction technique. FINDINGS: INTERNAL CEREBRAL ARTERIES: Unremarkable. The skull base, petrous, cavernous and supraclinoid segments are bilaterally widely patent. ANTERIOR CEREBRAL ARTERIES: Unremarkable. A1 and A2 segments are widely patent. Smaller distal branches unremarkable, as visualized. MIDDLE CEREBRAL ARTERIES: Unremarkable. M1 and M2 segments are widely patent. Perisylvian branches grossly symmetric. POSTERIOR CIRCULATION: Basilar Artery: Unremarkable. Distal Vertebral Arteries: Unremarkable. Mildly hypoplastic distal right vertebral artery segment. Left dominant vertebrobasilar circulation. Widely patent bilateral posterior communicating arteries. Posterior Cerebral Arteries: Unremarkable. Posterior Inferior Cerebellar Arteries: Unremarkable. NECK CTA: Common Carotid arteries: The bilateral common carotid appear widely patent from their origins to their bifurcations with no significant stenosis appreciated. No evidence to suggest common carotid artery dissection. Internal Carotid arteries: No significant stenosis is appreciated throughout the cervical internal carotid artery segments bilaterally and there is no evidence of dissection either. External Carotid arteries: Appear unremarkable bilaterally. Vertebral arteries: The bilateral vertebral arteries appear normal in caliber from their origins to their junction with the basilar artery. Vertebrobasilar system appears dominant. No significant stenosis or definite pattern of dissection. Incidentally, the bilateral subclavian arteries are widely patent as well as the brachiocephalic artery. ANEURYSM/ VASCULAR MALFORMATIONS: None. OTHER FINDINGS: None. IMPRESSION: No CT pattern suggest occlusion or significant stenosis of the intracranial or cervical arterial circulation as discussed above. Right lentiform region appears unremarkable with no suspicious vascularity demonstrated. Overall, the pattern is concordant with MRA brain and neck from 12/01/2017.
[2017-12-11] MEDS: Tmp-Smz 800 mg-160 mg DS Tab PO SCH (08:52)
[2017-12-11] MEDS: Divalproex 500 mg DR(BID formulation) PO SCH ×2 (08:52→17:24)
--- NOTE | 2017-12-11 11:35 | CP.PCM.PN ---
Subjective - Date & Time of Evaluation Date of Evaluation: 12/11/17 Time of Evaluation: 11:30 - Subjective Subjective: Patient seen and examined bedside. Lying in bed , sleeping. As per staff patient has been wondering in the unit and sometimes becomes combative. Appears in NAD but unable to answer questions.with memory problems Hemodynamically stable, afebrile Ambulates in unit with stable gait Objective - Vital Signs/Intake and Output Vital Signs (last 24 hours): Temp Pulse Resp BP Pulse Ox 98.2 F 72 20 100/66 98 12/11/17 08:03 12/11/17 08:03 12/11/17 08:03 12/11/17 08:03 12/11/17 08:03 - Medications Medications: Current Medications Divalproex Sodium (Depakote Dr(*Bid*)) 500 mg PO BID [facility] Last Admin: 12/11/17 08:52 Dose: 500 mg Escitalopram Oxalate (Lexapro) 10 mg PO DAILY [facility] Last Admin: 12/11/17 08:52 Dose: 10 mg Ibuprofen (Motrin Tab) 400 mg PO Q6 PRN PRN Reason: Fever >100.4 F Last Admin: 12/10/17 16:38 Dose: 400 mg Lorazepam (Ativan) 0.5 mg IM Q8 PRN PRN Reason: Agitation Last Admin: 12/11/17 11:06 Dose: 0.5 mg Memantine (Namenda) 5 mg PO DAILY [facility] Last Admin: 12/11/17 08:52 Dose: 5 mg Trimethoprim/Sulfamethoxazole (Bactrim Ds Tab) 1 tab PO DAILY [facility] PRN Reason: Protocol Last Admin: 12/11/17 08:52 Dose: 1 tab - Labs Labs: 12/05/17 06:15 12/05/17 06:15 PT 11.4 Seconds (9.8-13.1) 11/29/17 15:09 INR 1.0 (0.9-1.2) 11/29/17 15:09 APTT 31.2 Seconds (25.6-37.1) 11/29/17 15:09 - Constitutional Appears: Well, Non-toxic, No Acute Distress - Head Exam Head Exam: ATRAUMATIC, NORMAL INSPECTION, NORMOCEPHALIC - Eye Exam Eye Exam: EOMI, Normal appearance, PERRL Pupil Exam: NORMAL ACCOMODATION - ENT Exam ENT Exam: Mucous Membranes Moist, Normal Exam - Neck Exam Neck Exam: Full ROM, Normal Inspection - Respiratory Exam Respiratory Exam: Clear to Ausculation Bilateral, NORMAL BREATHING PATTERN. absent: Rales, Rhonchi, Wheezes - Cardiovascular Exam Cardiovascular Exam: REGULAR RHYTHM, RRR, +S1, +S2. absent: JVD - GI/Abdominal Exam GI & Abdominal Exam: Hyperactive Bowel Sounds, Normal Bowel Sounds. absent: Distended, Guarding, Tenderness, Rebound - Rectal Exam Rectal Exam: Deferred - Extremities Exam Extremities Exam: Normal Capillary Refill, Normal Inspection. absent: Calf Tenderness, Pedal Edema - Back Exam Back Exam: NORMAL INSPECTION - Neurological Exam Neurological Exam: Alert, Awake Additional comments: moves all 4 extremities, stable gait follows commands with memory problems - Psychiatric Exam Psychiatric exam: Flat Affect - Skin Skin Exam: Dry, Normal Color, Warm Assessment and Plan - Assessment and Plan (Free Text) Assessment: 57 year old male with PMH AIDS and seizure disorder not compliant with medications, homeless , seen in ER several times with breakthrough seizures and AMS brought To ER via BLS for evaluation for AMS . Apparently patient walked into a travelers' aid worker office on the day of admission asking to talk to a stationary engineer. Patient appeared confused so EMS was called and he was brought to ER. Patient unable to explain why he is here or why he went to the travelers' aid worker office He is HD stable, afebrile, no WBC, head CT showed no interval change from prior admission Multiple tiny calcific densities scattered throughout the subarachnoid spaces consistent with prior exposure to cysticercosis. Marked dilatation 3rd and lateral ventricles with relatively normal-appearing 4th ventricle. 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 Low-attenuation white matter changes could represent some combination of end-stage gliosis related to prolonged hydrocephalus however concomitant chronic sequela of small vessel disease may contribute. 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 No evidence of acute intracranial hemorrhage. LP done in ER since patient was febrile and confused on admission and this showed no active infection, HSV negative CD4 count 77. ID, Neuro and Neurosurgery consulted . AT present patient is confused , unable to explain where he is and why , unable to answer even simple questions with word finding difficulty . 1. Altered Mental Status -- with fluctuations ? 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 MRA head and neck showed NO evidence of stenosis or occlusion. LP showed no meningitis , HSV negative , DILIA virus positive,CSF VDRL and Cryptococcus antigen-NEGATIVE. Influenza negative. Initially started on IV Vanco , Ceftriaxone and Acyclovir- now off abx Neurology, Neurosurgery, psychiatry and Infectious Disease on board. 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 Fever--resolved no other source of infection found 3. Hx of Seizures Started Depakote Neuro consulted 4. AIDS CD4 count 77 ,HIV viral load 5.67 logcopies/mL. ID consulted follow up HIV genotype will need to start HAART medications Started Bactrim for PCP prophylaxis 5. Hyperlipidemia Trig 197-high, HDL 29-low. 6. DVT prophylaxis SCD for now. patient is ambulatory
--- NOTE | 2017-12-11 11:50 | CP.PCM.PN ---
Subjective - Date & Time of Evaluation Date of Evaluation: 12/11/17 Time of Evaluation: 11:49 - Subjective Subjective: Mr. Mejía was seen and examined at the bedside. He is asleep on 1:1 sitter for patient safety. According to the staff, patient attempted to eloped and was combative. He was given medication. He is not in any kind of distress, moves all extremities spontaneously. CTA yesterday showed no CT pattern suggest occlusion or significant stenosis of the intracranial or cervical arterial circulation. Right lentiform region appears unremarkable with no suspicious vascularity demonstrated. Overall, the pattern is concordant with MRA brain and neck from 12/01/2017. Objective - Vital Signs/Intake and Output Vital Signs (last 24 hours): Temp Pulse Resp BP Pulse Ox 98.2 F 72 20 100/66 98 12/11/17 08:03 12/11/17 08:03 12/11/17 08:03 12/11/17 08:03 12/11/17 08:03 - Medications Medications: Current Medications Divalproex Sodium (Depakote Dr(*Bid*)) 500 mg PO BID [facility] Last Admin: 12/11/17 08:52 Dose: 500 mg Escitalopram Oxalate (Lexapro) 10 mg PO DAILY [facility] Last Admin: 12/11/17 08:52 Dose: 10 mg Ibuprofen (Motrin Tab) 400 mg PO Q6 PRN PRN Reason: Fever >100.4 F Last Admin: 12/10/17 16:38 Dose: 400 mg Lorazepam (Ativan) 0.5 mg IM Q8 PRN PRN Reason: Agitation Last Admin: 12/11/17 11:06 Dose: 0.5 mg Memantine (Namenda) 5 mg PO DAILY [facility] Last Admin: 12/11/17 08:52 Dose: 5 mg Trimethoprim/Sulfamethoxazole (Bactrim Ds Tab) 1 tab PO DAILY [facility] PRN Reason: Protocol Last Admin: 12/11/17 08:52 Dose: 1 tab - Labs Labs: 12/05/17 06:15 12/05/17 06:15 PT 11.4 Seconds (9.8-13.1) 11/29/17 15:09 INR 1.0 (0.9-1.2) 11/29/17 15:09 APTT 31.2 Seconds (25.6-37.1) 11/29/17 15:09 - Constitutional Appears: No Acute Distress - Head Exam Head Exam: NORMAL INSPECTION - Neurological Exam Neuro motor strength exam: Left Upper Extremity: 5, Right Upper Extremity: 5, Left Lower Extremity: 5, Right Lower Extremity: 5 Additional comments: Neurological unchanged from previous examination. Assessment and Plan (1) Generalized seizure Assessment & Plan: Case discussed with Dr. Woodward, continue all current medical regimen including AED. Status: Acute (2) Altered mental status Assessment & Plan: Case discussed with Dr. woodward, continue all current medical regimen including his anti-retroviral drugs. Status: Acute
[2017-12-12 00:52] LABS: HIV-1 GENOTYPE DETECTED
[2017-12-12] MEDS: Divalproex 500 mg DR(BID formulation) PO SCH ×2 (09:35→17:39)
[2017-12-12] MEDS: Tmp-Smz 800 mg-160 mg DS Tab PO SCH (09:35)
--- NOTE | 2017-12-12 16:45 | CP.PCM.PN ---
Subjective - Date & Time of Evaluation Date of Evaluation: 12/12/17 Time of Evaluation: 11:30 - Subjective Subjective: Patient seen and examined bedside. Lying in bed , sleeping. Appears in NAD . Able to answer more questions today . Oriented to place, time with confusion Hemodynamically stable, afebrile Ambulates in unit with stable gait Objective - Vital Signs/Intake and Output Vital Signs (last 24 hours): Temp Pulse Resp BP Pulse Ox 98.5 F 88 18 104/69 94 L 12/12/17 15:58 12/12/17 15:58 12/12/17 15:58 12/12/17 15:58 12/12/17 15:58 - Medications Medications: Current Medications Divalproex Sodium (Depakote Dr(*Bid*)) 500 mg PO BID [facility] Last Admin: 12/12/17 09:35 Dose: 500 mg Escitalopram Oxalate (Lexapro) 10 mg PO DAILY [facility] Last Admin: 12/12/17 09:35 Dose: 10 mg Ibuprofen (Motrin Tab) 400 mg PO Q6 PRN PRN Reason: Fever >100.4 F Last Admin: 12/12/17 10:14 Dose: 400 mg Lorazepam (Ativan) 0.5 mg IM Q8 PRN PRN Reason: Agitation Last Admin: 12/11/17 11:06 Dose: 0.5 mg Memantine (Namenda) 5 mg PO DAILY [facility] Last Admin: 12/12/17 09:36 Dose: 5 mg Trimethoprim/Sulfamethoxazole (Bactrim Ds Tab) 1 tab PO DAILY [facility] PRN Reason: Protocol Last Admin: 12/12/17 09:35 Dose: 1 tab - Labs Labs: 12/05/17 06:15 12/05/17 06:15 PT 11.4 Seconds (9.8-13.1) 11/29/17 15:09 INR 1.0 (0.9-1.2) 11/29/17 15:09 APTT 31.2 Seconds (25.6-37.1) 11/29/17 15:09 - Constitutional Appears: Non-toxic, No Acute Distress - Head Exam Head Exam: ATRAUMATIC, NORMOCEPHALIC - Eye Exam Eye Exam: EOMI, PERRL Pupil Exam: NORMAL ACCOMODATION - ENT Exam ENT Exam: Mucous Membranes Moist, Normal Exam - Neck Exam Neck Exam: Full ROM, Normal Inspection - Respiratory Exam Respiratory Exam: Clear to Ausculation Bilateral, NORMAL BREATHING PATTERN. absent: Rales, Rhonchi, Wheezes - Cardiovascular Exam Cardiovascular Exam: REGULAR RHYTHM, RRR, +S1, +S2. absent: JVD - GI/Abdominal Exam GI & Abdominal Exam: Soft, Normal Bowel Sounds. absent: Guarding, Rebound - Rectal Exam Rectal Exam: Deferred - Extremities Exam Extremities Exam: Normal Capillary Refill, Normal Inspection. absent: Pedal Edema - Back Exam Back Exam: NORMAL INSPECTION - Neurological Exam Neurological Exam: Alert, Awake, CN II-XII Intact, Normal Gait Neuro motor strength exam: Left Upper Extremity: 5, Right Upper Extremity: 5, Left Lower Extremity: 5, Right Lower Extremity: 5 Additional comments: oriented to time , place confused - Psychiatric Exam Psychiatric exam: Flat Affect - Skin Skin Exam: Dry, Intact, Normal Color, Warm Assessment and Plan - Assessment and Plan (Free Text) Assessment: 57 year old male with PMH AIDS and seizure disorder not compliant with medications, homeless , seen in ER several times with breakthrough seizures and AMS brought To ER via BLS for evaluation for AMS . Apparently patient walked into a hair preparer office on the day of admission asking to talk to a lawn maintenance worker. Patient appeared confused so EMS was called and he was brought to ER. Patient unable to explain why he is here or why he went to the hair preparer office He is HD stable, afebrile, no WBC, head CT showed no interval change from prior admission Multiple tiny calcific densities scattered throughout the subarachnoid spaces consistent with prior exposure to cysticercosis. Marked dilatation 3rd and lateral ventricles with relatively normal-appearing 4th ventricle. 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 Low-attenuation white matter changes could represent some combination of end-stage gliosis related to prolonged hydrocephalus however concomitant chronic sequela of small vessel disease may contribute. 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 No evidence of acute intracranial hemorrhage. LP done in ER since patient was febrile and confused on admission and this showed no active infection, HSV negative CD4 count 77. ID, Neuro and Neurosurgery consulted . AT present patient has flactuations of his mental status, confused at times and not able to answer simple questions sometime. 1. Altered Mental Status -- with fluctuations ? 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 MRA head and neck showed NO evidence of stenosis or occlusion. LP showed no meningitis , HSV negative , DILIA virus positive,CSF VDRL and Cryptococcus antigen-NEGATIVE. Influenza negative. Initially started on IV Vanco , Ceftriaxone and Acyclovir- now off abx Neurology, Neurosurgery, psychiatry and Infectious Disease on board. 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 Fever--resolved no other source of infection found 3. Hx of Seizures Started Depakote Neuro consulted 4. AIDS CD4 count 77 ,HIV viral load 5.67 logcopies/mL. ID consulted follow up HIV genotype will need to start HAART medications Started Bactrim for PCP prophylaxis 5. Hyperlipidemia Trig 197-high, HDL 29-low. 6. DVT prophylaxis SCD for now. patient is ambulatory
--- NOTE | 2017-12-12 21:56 | CP.PCM.PN ---
Subjective - Date & Time of Evaluation Date of Evaluation: 12/12/17 Time of Evaluation: 21:55 - Subjective Subjective: based on patient's HIV genotype advise to start HAARt meds ( truvada and dolutegravir). check HIV VL in month after initiating HAART. Objective - Vital Signs/Intake and Output Vital Signs (last 24 hours): Temp Pulse Resp BP Pulse Ox 98.5 F 88 18 104/69 94 L 12/12/17 15:58 12/12/17 15:58 12/12/17 15:58 12/12/17 15:58 12/12/17 15:58 - Medications Medications: Current Medications Divalproex Sodium (Depakote Dr(*Bid*)) 500 mg PO BID [facility] Last Admin: 12/12/17 17:39 Dose: 500 mg Escitalopram Oxalate (Lexapro) 10 mg PO DAILY [facility] Last Admin: 12/12/17 09:35 Dose: 10 mg Ibuprofen (Motrin Tab) 400 mg PO Q6 PRN PRN Reason: Fever >100.4 F Last Admin: 12/12/17 10:14 Dose: 400 mg Lorazepam (Ativan) 0.5 mg IM Q8 PRN PRN Reason: Agitation Last Admin: 12/11/17 11:06 Dose: 0.5 mg Memantine (Namenda) 5 mg PO DAILY [facility] Last Admin: 12/12/17 09:36 Dose: 5 mg Trimethoprim/Sulfamethoxazole (Bactrim Ds Tab) 1 tab PO DAILY [facility] PRN Reason: Protocol Last Admin: 12/12/17 09:35 Dose: 1 tab - Labs Labs: 12/05/17 06:15 12/05/17 06:15 PT 11.4 Seconds (9.8-13.1) 11/29/17 15:09 INR 1.0 (0.9-1.2) 11/29/17 15:09 APTT 31.2 Seconds (25.6-37.1) 11/29/17 15:09 Laboratory Results - last 72 hr 12/03/17 19:43 HIV-1 Genotyping Detected H Assessment and Plan (1) Altered mental status Status: Acute (2) Fever Status: Acute (3) Hydrocephalus Status: Acute (4) Brain parenchymal calcification Status: Chronic (5) Generalized seizure Status: Acute
[2017-12-13] MEDS: Divalproex 500 mg DR(BID formulation) PO SCH ×2 (08:18→16:09)
[2017-12-13] MEDS: Emtricitabine-Tenofovir 200 mg-300 mg Tab PO SCH (08:19)
[2017-12-13] MEDS: Tmp-Smz 800 mg-160 mg DS Tab PO SCH (08:19)
--- NOTE | 2017-12-13 09:15 | CP.PCM.PN ---
Subjective - Date & Time of Evaluation Date of Evaluation: 12/13/17 Time of Evaluation: 09:15 - Subjective Subjective: No fever Pt is more cooperative now off 1:1 oriented to person and place denies BARRETO no CP no SOB no cough no abd pain Objective - Vital Signs/Intake and Output Vital Signs (last 24 hours): Temp Pulse Resp BP Pulse Ox 98.2 F 86 20 104/70 97 12/13/17 08:23 12/13/17 08:23 12/13/17 08:23 12/13/17 08:23 12/13/17 08:23 - Medications Medications: Current Medications Divalproex Sodium (Depakote Dr(*Bid*)) 500 mg PO BID [facility] Last Admin: 12/13/17 08:18 Dose: 500 mg Dolutegravir Sodium (Tivicay) 50 mg PO DAILY [facility] Last Admin: 12/13/17 08:18 Dose: 50 mg Emtricitabine/Tenofovir (Truvada 200 Mg-300 Mg) 1 tab PO DAILY [facility] Last Admin: 12/13/17 08:19 Dose: 1 tab Escitalopram Oxalate (Lexapro) 10 mg PO DAILY [facility] Last Admin: 12/13/17 08:19 Dose: 10 mg Ibuprofen (Motrin Tab) 400 mg PO Q6 PRN PRN Reason: Fever >100.4 F Last Admin: 12/12/17 10:14 Dose: 400 mg Lorazepam (Ativan) 0.5 mg IM Q8 PRN PRN Reason: Agitation Last Admin: 12/11/17 11:06 Dose: 0.5 mg Memantine (Namenda) 5 mg PO DAILY [facility] Last Admin: 12/13/17 08:19 Dose: 5 mg Trimethoprim/Sulfamethoxazole (Bactrim Ds Tab) 1 tab PO DAILY [facility] PRN Reason: Protocol Last Admin: 12/13/17 08:19 Dose: 1 tab - Labs Labs: 12/05/17 06:15 12/05/17 06:15 PT 11.4 Seconds (9.8-13.1) 11/29/17 15:09 INR 1.0 (0.9-1.2) 11/29/17 15:09 APTT 31.2 Seconds (25.6-37.1) 11/29/17 15:09 - Constitutional Appears: No Acute Distress, Confused - Head Exam Head Exam: NORMAL INSPECTION, NORMOCEPHALIC - Eye Exam Eye Exam: EOMI, Normal appearance Pupil Exam: NORMAL ACCOMODATION - ENT Exam ENT Exam: Mucous Membranes Moist, Normal External Ear Exam - Neck Exam Neck Exam: Full ROM. absent: Meningismus - Respiratory Exam Respiratory Exam: NORMAL BREATHING PATTERN. absent: Respiratory Distress - Cardiovascular Exam Cardiovascular Exam: REGULAR RHYTHM, +S1, +S2 - GI/Abdominal Exam GI & Abdominal Exam: Soft, Normal Bowel Sounds. absent: Tenderness - Extremities Exam Extremities Exam: Full ROM, Normal Capillary Refill. absent: Calf Tenderness - Back Exam Back Exam: Full ROM. 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 Apparently patient walked into a dental laboratory assistant office on the day of admission asking to talk to one. Patient appeared confused so EMs was called and he was brought to ER. Patient unable to why he is here or why he went to the dental laboratory assistant office He is HD stable, afebrile, no WBC, head CT no interval change from prior admission Multiple tiny calcific densities scattered throughout the subarachnoid spaces consistent with prior exposure to cysticercosis. Marked dilatation 3rd and lateral ventricles with relatively normal-appearing 4th ventricle. 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 Low-attenuation white matter changes could represent some combination of end-stage gliosis related to prolonged hydrocephalus however concomitant chronic sequela of small vessel disease may contribute. 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 No evidence of acute intracranial hemorrhage. LP done in ER since patient was febrile and confused on admission and this showed no active infection, HSV negative CD4 count 77. ID, Neuro and Neurosurgery consulted . 1. Altered Mental Status -- with fluctuations ? 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 PML Ct head showed Hydrocephalus/Prior parenchymal calcifications/Prior infection with cysticercosis. 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 MRA head and neck showed NO evidence of stenosis or occlusion. LP showed no meningitis , HSV negative , DILIA virus positive,CSF VDRL and Cryptococcus antigen-NEGATIVE. Influenza negative. Initially started on IV Vanco , Ceftriaxone and Acyclovir- now off abx Neurology, Neurosurgery, psychiatry and Infectious Disease on board. 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 Fever--resolved no other source of infection found 3. Hx of Seizures Started Depakote Neuro consulted 4. AIDS started on HAART- on Tivicay and TRuvada CD4 count 77 ,HIV viral load 5.67 logcopies/mL. ID consulted Started Bactrim for PCP prophylaxis 5. Hyperlipidemia Trig 197-high, HDL 29-low. 6. DVT prophylaxis SCD for now. Lovenox SC daily.
[2017-12-14] MEDS: Tmp-Smz 800 mg-160 mg DS Tab PO SCH (10:07)
[2017-12-14] MEDS: Emtricitabine-Tenofovir 200 mg-300 mg Tab PO SCH (10:08)
[2017-12-14] MEDS: Divalproex 500 mg DR(BID formulation) PO SCH ×2 (10:09→17:08)
--- NOTE | 2017-12-14 10:18 | CP.PCM.PN ---
Subjective - Date & Time of Evaluation Date of Evaluation: 12/14/17 Time of Evaluation: 10:00 - Subjective Subjective: Pt has no fever still with episodes of confusion however directable follows simple commands slow to answer however answers questions appropriately denies headache no CP no SOB no abd pain Objective - Vital Signs/Intake and Output Vital Signs (last 24 hours): Temp Pulse Resp BP Pulse Ox 98.3 F 76 20 118/76 100 12/14/17 08:21 12/14/17 08:21 12/14/17 08:21 12/14/17 08:21 12/14/17 08:21 - Medications Medications: Current Medications Divalproex Sodium (Depakote Dr(*Bid*)) 500 mg PO BID [facility] Last Admin: 12/14/17 10:09 Dose: 500 mg Dolutegravir Sodium (Tivicay) 50 mg PO DAILY [facility] Last Admin: 12/14/17 10:08 Dose: 50 mg Emtricitabine/Tenofovir (Truvada 200 Mg-300 Mg) 1 tab PO DAILY [facility] Last Admin: 12/14/17 10:08 Dose: 1 tab Escitalopram Oxalate (Lexapro) 10 mg PO DAILY [facility] Last Admin: 12/14/17 10:07 Dose: 10 mg Ibuprofen (Motrin Tab) 400 mg PO Q6 PRN PRN Reason: Fever >100.4 F Last Admin: 12/12/17 10:14 Dose: 400 mg Lorazepam (Ativan) 0.5 mg IM Q8 PRN PRN Reason: Agitation Last Admin: 12/13/17 12:17 Dose: 0.5 mg Memantine (Namenda) 5 mg PO DAILY [facility] Last Admin: 12/14/17 10:08 Dose: 5 mg Trimethoprim/Sulfamethoxazole (Bactrim Ds Tab) 1 tab PO DAILY [facility] PRN Reason: Protocol Last Admin: 12/14/17 10:07 Dose: 1 tab - Labs Labs: 12/05/17 06:15 12/05/17 06:15 PT 11.4 Seconds (9.8-13.1) 11/29/17 15:09 INR 1.0 (0.9-1.2) 11/29/17 15:09 APTT 31.2 Seconds (25.6-37.1) 11/29/17 15:09 - Constitutional Appears: No Acute Distress, Confused - Head Exam Head Exam: NORMAL INSPECTION, NORMOCEPHALIC - Eye Exam Eye Exam: EOMI, Normal appearance Pupil Exam: NORMAL ACCOMODATION - ENT Exam ENT Exam: Mucous Membranes Moist, Normal External Ear Exam - Neck Exam Neck Exam: Full ROM. absent: Meningismus - Respiratory Exam Respiratory Exam: NORMAL BREATHING PATTERN. absent: Respiratory Distress - Cardiovascular Exam Cardiovascular Exam: REGULAR RHYTHM, +S1, +S2 - GI/Abdominal Exam GI & Abdominal Exam: Soft, Normal Bowel Sounds. absent: Tenderness - Extremities Exam Extremities Exam: Full ROM, Normal Capillary Refill. absent: Calf Tenderness - Back Exam Back Exam: Full ROM. 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 Apparently patient walked into a biscuit packer office on the day of admission asking to talk to one. Patient appeared confused so EMS was called and he was brought to ER. CT of the Head: Multiple tiny calcific densities scattered throughout the subarachnoid spaces consistent with prior exposure to cysticercosis. Marked dilatation 3rd and lateral ventricles with relatively normal-appearing 4th ventricle. 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 Low-attenuation white matter changes could represent some combination of end-stage gliosis related to prolonged hydrocephalus however concomitant chronic sequela of small vessel disease may contribute. 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 No evidence of acute intracranial hemorrhage. LP done in ER since patient was febrile and confused on admission and this showed no active infection, HSV negative. CD4 count 77. ID, Neuro and Neurosurgery consulted . 1. Altered Mental Status -prob sec to AIDS Dementia with behavioral changes vs sec to BILLET SAWYER pathology ( Hydrocephalus) due to PML Ct head showed Hydrocephalus/Prior parenchymal calcifications/Prior infection with cysticercosis. 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 MRA head and neck showed NO evidence of stenosis or occlusion. LP showed no meningitis , HSV negative , DILIA virus positive,CSF VDRL and Cryptococcus antigen-NEGATIVE. Influenza negative. Initially started on IV Vanco , Ceftriaxone and Acyclovir- now off abx Neurology, Neurosurgery, psychiatry and Infectious Disease on board. 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 Fever--resolved no other source of infection found 3. Hx of Seizures Started Depakote Neuro consulted 4. AIDS started on HAART- on Tivicay and TRuvada CD4 count 77 ,HIV viral load 5.67 log copies/mL. ID consulted Started Bactrim for PCP prophylaxis 5. Hyperlipidemia Trig 197-high, HDL 29-low. 6. DVT prophylaxis SCD for now. Lovenox SC daily.
[2017-12-15 06:33] LABS: HEMOGLOBIN 12.7 g/dL (12.0-18.0); MEAN CORPUSCULAR HEMOGLOBIN 31.2 pg (27.0-31.0); MEAN CORPUSCULAR HGB CONC 33.1 g/dL (33.0-37.0); RBC 4.07 Mil/uL (4.40-5.90); RED CELL DISTRIBUTION WIDTH 13.2 % (11.5-14.5); WHITE BLOOD COUNT 4.4 K/uL (4.8-10.8)
[2017-12-15 07:02] LABS: ALB/GLOB RATIO 0.9 (1.0-2.1); ALBUMIN 3.9 g/dL (3.5-5.0); ALT/SGPT 45 U/L (21-72); AST/SGOT 43 U/L (17-59); BLOOD UREA NITROGEN 19 mg/dl (9-20); CALCIUM 9.2 mg/dL (8.4-10.2); GFR AFRICAN-AMERICAN > 60; GFR NON-AFRICAN AMERICAN 57
[2017-12-15] MEDS: Enoxaparin 40 mg Syringe SC SCH (08:37)
[2017-12-15] MEDS: Emtricitabine-Tenofovir 200 mg-300 mg Tab PO SCH (08:39)
[2017-12-15] MEDS: Tmp-Smz 800 mg-160 mg DS Tab PO SCH (08:39)
[2017-12-15] MEDS: Divalproex 500 mg DR(BID formulation) PO SCH ×2 (08:40→16:19)
--- NOTE | 2017-12-15 11:22 | CP.PCM.PN ---
Subjective - Date & Time of Evaluation Date of Evaluation: 12/15/17 Time of Evaluation: 10:45 - Subjective Subjective: Pt is ambulating around the unit he is oriented to person and place follows commands able to be directed denies CP no SOB no abd pain Objective - Vital Signs/Intake and Output Vital Signs (last 24 hours): Temp Pulse Resp BP Pulse Ox 97.9 F 84 20 113/67 97 12/15/17 07:56 12/15/17 07:56 12/15/17 07:56 12/15/17 07:56 12/15/17 07:56 - Medications Medications: Current Medications Divalproex Sodium (Depakote Dr(*Bid*)) 500 mg PO BID [facility] Last Admin: 12/15/17 08:40 Dose: 500 mg Dolutegravir Sodium (Tivicay) 50 mg PO DAILY [facility] Last Admin: 12/15/17 08:37 Dose: 50 mg Emtricitabine/Tenofovir (Truvada 200 Mg-300 Mg) 1 tab PO DAILY [facility] Last Admin: 12/15/17 08:39 Dose: 1 tab Enoxaparin Sodium (Lovenox) 40 mg SC DAILY [facility] PRN Reason: Protocol Last Admin: 12/15/17 08:37 Dose: 40 mg Escitalopram Oxalate (Lexapro) 10 mg PO DAILY [facility] Last Admin: 12/15/17 08:39 Dose: 10 mg Ibuprofen (Motrin Tab) 400 mg PO Q6 PRN PRN Reason: Fever >100.4 F Last Admin: 12/12/17 10:14 Dose: 400 mg Lorazepam (Ativan) 0.5 mg IM Q8 PRN PRN Reason: Agitation Last Admin: 12/14/17 14:43 Dose: 0.5 mg Memantine (Namenda) 10 mg PO DAILY [facility] Last Admin: 12/15/17 08:40 Dose: 10 mg Trimethoprim/Sulfamethoxazole (Bactrim Ds Tab) 1 tab PO DAILY [facility] PRN Reason: Protocol Last Admin: 12/15/17 08:39 Dose: 1 tab - Labs Labs: 12/15/17 06:15 12/15/17 06:15 PT 11.4 Seconds (9.8-13.1) 11/29/17 15:09 INR 1.0 (0.9-1.2) 11/29/17 15:09 APTT 31.2 Seconds (25.6-37.1) 11/29/17 15:09 - Constitutional Appears: No Acute Distress, ambulating around the unit - Head Exam Head Exam: NORMAL INSPECTION, NORMOCEPHALIC - Eye Exam Eye Exam: EOMI, Normal appearance Pupil Exam: NORMAL ACCOMODATION - ENT Exam ENT Exam: Mucous Membranes Moist, Normal External Ear Exam - Neck Exam Neck Exam: Full ROM. absent: Meningismus - Respiratory Exam Respiratory Exam: NORMAL BREATHING PATTERN. absent: Respiratory Distress - Cardiovascular Exam Cardiovascular Exam: REGULAR RHYTHM, +S1, +S2 - GI/Abdominal Exam GI & Abdominal Exam: Soft, Normal Bowel Sounds. absent: Tenderness - Extremities Exam Extremities Exam: Full ROM, Normal Capillary Refill. absent: Calf Tenderness - Back Exam Back Exam: Full ROM. 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 Apparently patient walked into a cleaner window office on the day of admission asking to talk to one. Patient appeared confused so EMS was called and he was brought to ER. CT of the Head: Multiple tiny calcific densities scattered throughout the subarachnoid spaces consistent with prior exposure to cysticercosis. Marked dilatation 3rd and lateral ventricles with relatively normal-appearing 4th ventricle. 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 Low-attenuation white matter changes could represent some combination of end-stage gliosis related to prolonged hydrocephalus however concomitant chronic sequela of small vessel disease may contribute. 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 No evidence of acute intracranial hemorrhage. LP done in ER since patient was febrile and confused on admission and this showed no active infection, HSV negative. CD4 count 77. ID, Neuro and Neurosurgery consulted . 1. 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 MRA head and neck showed NO evidence of stenosis or occlusion. LP showed no meningitis , HSV negative , DILIA virus positive,CSF VDRL and Cryptococcus antigen-NEGATIVE. Influenza negative. Initially started on IV Vanco , Ceftriaxone and Acyclovir- now off abx Neurology, Neurosurgery, psychiatry and Infectious Disease on board. 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 Fever--resolved no other source of infection found 3. Hx of Seizures cont Depakote Neuro consulted 4. AIDS cont HAART- on Tivicay and TRuvada CD4 count 77 ,HIV viral load 5.67 log copies/mL. ID consulted cont Bactrim for PCP prophylaxis 5. Hyperlipidemia Trig 197-high, HDL 29-low. 6. DVT prophylaxis SCD for now. Lovenox SC daily.
--- NOTE | 2017-12-15 11:50 | CP.PCM.PN ---
Subjective - Date & Time of Evaluation Date of Evaluation: 12/15/17 Time of Evaluation: 11:48 - Subjective Subjective: Mr. Mejía was seen and examined at the bedside. He is awake, speaks few words with episode of confusion and keeps on going towards the elevator. He is unable to answer any questions appropriately. He is able to redirected by staff. He ambulates with steady gait, but unable to follow any instructions. There was no untoward events overnight. Objective - Vital Signs/Intake and Output Vital Signs (last 24 hours): Temp Pulse Resp BP Pulse Ox 97.9 F 84 20 113/67 97 12/15/17 07:56 12/15/17 07:56 12/15/17 07:56 12/15/17 07:56 12/15/17 07:56 - Medications Medications: Current Medications Divalproex Sodium (Depakote Dr(*Bid*)) 500 mg PO BID [facility] Last Admin: 12/15/17 08:40 Dose: 500 mg Dolutegravir Sodium (Tivicay) 50 mg PO DAILY [facility] Last Admin: 12/15/17 08:37 Dose: 50 mg Emtricitabine/Tenofovir (Truvada 200 Mg-300 Mg) 1 tab PO DAILY [facility] Last Admin: 12/15/17 08:39 Dose: 1 tab Enoxaparin Sodium (Lovenox) 40 mg SC DAILY [facility] PRN Reason: Protocol Last Admin: 12/15/17 08:37 Dose: 40 mg Escitalopram Oxalate (Lexapro) 10 mg PO DAILY [facility] Last Admin: 12/15/17 08:39 Dose: 10 mg Ibuprofen (Motrin Tab) 400 mg PO Q6 PRN PRN Reason: Fever >100.4 F Last Admin: 12/12/17 10:14 Dose: 400 mg Lorazepam (Ativan) 0.5 mg IM Q8 PRN PRN Reason: Agitation Last Admin: 12/14/17 14:43 Dose: 0.5 mg Memantine (Namenda) 10 mg PO DAILY [facility] Last Admin: 12/15/17 08:40 Dose: 10 mg Trimethoprim/Sulfamethoxazole (Bactrim Ds Tab) 1 tab PO DAILY [facility] PRN Reason: Protocol Last Admin: 12/15/17 08:39 Dose: 1 tab - Labs Labs: 12/15/17 06:15 02/26/18 06:15 PT 11.4 Seconds (9.8-13.1) 11/29/17 15:09 INR 1.0 (0.9-1.2) 11/29/17 15:09 APTT 31.2 Seconds (25.6-37.1) 11/29/17 15:09 - Constitutional Appears: No Acute Distress - Head Exam Head Exam: NORMAL INSPECTION - Neurological Exam Neurological Exam: Awake Neuro motor strength exam: Left Upper Extremity: 5, Right Upper Extremity: 5, Left Lower Extremity: 5, Right Lower Extremity: 5 Additional comments: Neurological unchanged from previous examination. Assessment and Plan (1) Altered mental status Assessment & Plan: Case discussed with Dr. Fletcher, continue all current medical regimen including AED. There is no new recommendations from neurology. Status: Acute
[2017-12-15] MEDS ORDERED: Alum-Mag Hydrox-Simethicone Susp (30 mL) PO ONE (19:28)
[2017-12-16] MEDS: Enoxaparin 40 mg Syringe SC SCH (09:56)
[2017-12-16] MEDS: Tmp-Smz 800 mg-160 mg DS Tab PO SCH (09:56)
[2017-12-16] MEDS: Divalproex 500 mg DR(BID formulation) PO SCH ×2 (09:56→17:15)
--- NOTE | 2017-12-16 10:53 | CP.PCM.PN ---
Subjective - Date & Time of Evaluation Date of Evaluation: 12/16/17 Time of Evaluation: 10:00 - Subjective Subjective: Patient seen and examined at bedside. Remains confused but is oriented to person and place. No new complaints. Ambulatory. Occasionally walks towards the elevator and needs to be reoriented by staff. No acute events overnight. No cp, sob. Objective - Vital Signs/Intake and Output Vital Signs (last 24 hours): Temp Pulse Resp BP Pulse Ox 98.1 F 74 19 104/68 97 12/16/17 07:59 12/16/17 07:59 12/16/17 07:59 12/16/17 07:59 12/16/17 07:59 - Medications Medications: Current Medications Divalproex Sodium (Depakote Dr(*Bid*)) 500 mg PO BID [facility] Last Admin: 12/16/17 09:56 Dose: 500 mg Dolutegravir Sodium (Tivicay) 50 mg PO DAILY [facility] Last Admin: 12/15/17 08:37 Dose: 50 mg Emtricitabine/Tenofovir (Truvada 200 Mg-300 Mg) 1 tab PO DAILY [facility] Last Admin: 12/15/17 08:39 Dose: 1 tab Enoxaparin Sodium (Lovenox) 40 mg SC DAILY [facility] PRN Reason: Protocol Last Admin: 12/16/17 09:56 Dose: 40 mg Escitalopram Oxalate (Lexapro) 10 mg PO DAILY [facility] Last Admin: 12/16/17 09:56 Dose: 10 mg Ibuprofen (Motrin Tab) 400 mg PO Q6 PRN PRN Reason: Fever >100.4 F Last Admin: 12/12/17 10:14 Dose: 400 mg Memantine (Namenda) 10 mg PO DAILY [facility] Last Admin: 12/15/17 08:40 Dose: 10 mg Trimethoprim/Sulfamethoxazole (Bactrim Ds Tab) 1 tab PO DAILY [facility] PRN Reason: Protocol Last Admin: 12/16/17 09:56 Dose: 1 tab - Labs Labs: 12/15/17 06:15 12/15/17 06:15 PT 11.4 Seconds (9.8-13.1) 11/29/17 15:09 INR 1.0 (0.9-1.2) 11/29/17 15:09 APTT 31.2 Seconds (25.6-37.1) 11/29/17 15:09 - Additional Findings Additional findings: Physical exam: Constitutional- cooperative, awake, alert Head- NCAT, PERRL Eye- PERRL, EOMI ENT- normal exam, MMM. Neck- normal inspection, supple, no JVD Respiratory- CTAB, no wheezes rales rhonchi Cardiovascular- RRR, +S1, +S2 no MRG GI/Abdominal- normal bowel sounds, soft, no mass, no hsm Skin- warm, dry Extremities Exam- normal capillary refill, normal inspection Neurological Exam- alert, awake, oriented to person and place. Still intermittently confused. Psych- normal mood, normal affect Assessment and Plan - Assessment and Plan (Free Text) Plan: Assessment and Plan (1) Fever Status: Acute (2) Altered mental status Status: Acute (3) Seizure Status: Chronic (4) Brain parenchymal calcification Status: Chronic (5) DVT prophylaxis Status: Acute (6) AIDS (acquired immunodeficiency syndrome), CD4 <=200 Status: Acute (7) AIDS dementia complex with behavioral disturbance Status: Acute - Assessment and Plan (Free Text) Assessment: 57 year old male with PMH AIDS and seizure disorder not compliant with medications, homeless , seen in ER several times with breakthrough seizures and AMS brought To ER via BLS for evaluation for AMS . Apparently patient walked into a physics professor office on the day of admission asking to talk to one. Patient appeared confused so EMS was called and he was brought to ER. CT of the Head: Multiple tiny calcific densities scattered throughout the subarachnoid spaces consistent with prior exposure to cysticercosis. Marked dilatation 3rd and lateral ventricles with relatively normal-appearing 4th ventricle. 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 Low-attenuation white matter changes could represent some combination of end-stage gliosis related to prolonged hydrocephalus however concomitant chronic sequela of small vessel disease may contribute. 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 No evidence of acute intracranial hemorrhage. LP done in ER since patient was febrile and confused on admission and this showed no active infection, HSV negative. CD4 count 77. ID, Neuro and Neurosurgery consulted . 1. Altered Mental Status -prob sec to AIDS Dementia with behavioral changes vs sec to SALES ORDER CLERK pathology ( Hydrocephalus) due to PML Ct head showed Hydrocephalus/Prior parenchymal calcifications/Prior infection with cysticercosis. 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 MRA head and neck showed NO evidence of stenosis or occlusion. LP showed no meningitis , HSV negative , DILIA virus positive,CSF VDRL and Cryptococcus antigen-NEGATIVE. Influenza negative. Initially started on IV Vanco , Ceftriaxone and Acyclovir- now off abx Neurology, Neurosurgery, psychiatry and Infectious Disease on board. 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 Fever--resolved no other source of infection found 3. Hx of Seizures cont Depakote Neuro consulted 4. AIDS cont HAART- on and CD4 count 77 ,HIV viral load 5.67 log copies/mL. ID consulted cont Bactrim for PCP prophylaxis 5. Hyperlipidemia Trig 197-high, HDL 29-low. 6. DVT prophylaxis SCD for now. Lovenox SC daily.
[2017-12-16] MEDS: Emtricitabine-Tenofovir 200 mg-300 mg Tab PO SCH (13:08)
[2017-12-17] MEDS: Enoxaparin 40 mg Syringe SC SCH (08:36)
[2017-12-17] MEDS: Divalproex 500 mg DR(BID formulation) PO SCH ×2 (08:36→16:40)
[2017-12-17] MEDS: Tmp-Smz 800 mg-160 mg DS Tab PO SCH (08:36)
[2017-12-17] MEDS: Emtricitabine-Tenofovir 200 mg-300 mg Tab PO SCH (08:37)
--- NOTE | 2017-12-17 18:18 | CP.PCM.PN ---
Subjective - Date & Time of Evaluation Date of Evaluation: 12/17/17 Time of Evaluation: 18:00 - Subjective Subjective: Patient seen and examined. No new complaints. Remains confused. Denies cp/sob/n/v/d. Objective - Vital Signs/Intake and Output Vital Signs (last 24 hours): Temp Pulse Resp BP Pulse Ox 98.6 F 78 18 112/75 97 12/17/17 16:09 12/17/17 16:09 12/17/17 16:09 12/17/17 16:09 12/17/17 16:09 - Medications Medications: Current Medications Divalproex Sodium (Depakote Dr(*Bid*)) 500 mg PO BID [facility] Last Admin: 12/17/17 16:40 Dose: 500 mg Dolutegravir Sodium (Tivicay) 50 mg PO DAILY [facility] Last Admin: 12/17/17 08:36 Dose: 50 mg Emtricitabine/Tenofovir (Truvada 200 Mg-300 Mg) 1 tab PO DAILY [facility] Last Admin: 12/17/17 08:37 Dose: 1 tab Enoxaparin Sodium (Lovenox) 40 mg SC DAILY [facility] PRN Reason: Protocol Last Admin: 12/17/17 08:36 Dose: 40 mg Escitalopram Oxalate (Lexapro) 10 mg PO DAILY [facility] Last Admin: 12/17/17 08:37 Dose: 10 mg Ibuprofen (Motrin Tab) 400 mg PO Q6 PRN PRN Reason: Fever >100.4 F Last Admin: 12/12/17 10:14 Dose: 400 mg Memantine (Namenda) 10 mg PO DAILY [facility] Last Admin: 12/17/17 08:36 Dose: 10 mg Trimethoprim/Sulfamethoxazole (Bactrim Ds Tab) 1 tab PO DAILY [facility] PRN Reason: Protocol Last Admin: 12/17/17 08:36 Dose: 1 tab - Labs Labs: 12/15/17 06:15 12/15/17 06:15 PT 11.4 Seconds (9.8-13.1) 11/29/17 15:09 INR 1.0 (0.9-1.2) 11/29/17 15:09 APTT 31.2 Seconds (25.6-37.1) 11/29/17 15:09 - Additional Findings Additional findings: Physical exam: Constitutional- cooperative, awake, alert Head- NCAT, PERRL Eye- PERRL, EOMI ENT- normal exam, MMM. Neck- normal inspection, supple, no JVD Respiratory- CTAB, no wheezes rales rhonchi Cardiovascular- RRR, +S1, +S2 no MRG GI/Abdominal- normal bowel sounds, soft, no mass, no hsm Skin- warm, dry Extremities Exam- normal capillary refill, normal inspection Neurological Exam- alert, awake, oriented to person and place. Still intermittently confused. 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 Apparently patient walked into a replenishment analyst office on the day of admission asking to talk to one. Patient appeared confused so EMS was called and he was brought to ER. CT of the Head: Multiple tiny calcific densities scattered throughout the subarachnoid spaces consistent with prior exposure to cysticercosis. Marked dilatation 3rd and lateral ventricles with relatively normal-appearing 4th ventricle. 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 Low-attenuation white matter changes could represent some combination of end-stage gliosis related to prolonged hydrocephalus however concomitant chronic sequela of small vessel disease may contribute. 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 No evidence of acute intracranial hemorrhage. LP done in ER since patient was febrile and confused on admission and this showed no active infection, HSV negative. CD4 count 77. ID, Neuro and Neurosurgery consulted . 1. 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 MRA head and neck showed NO evidence of stenosis or occlusion. LP showed no meningitis , HSV negative , DILIA virus positive,CSF VDRL and Cryptococcus antigen-NEGATIVE. Influenza negative. Initially started on IV Vanco , Ceftriaxone and Acyclovir- now off abx Neurology, Neurosurgery, psychiatry and Infectious Disease on board. 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 Fever--resolved no other source of infection found 3. Hx of Seizures cont Depakote Neuro consulted 4. AIDS cont HAART- on Tivicay and TRuvada CD4 count 77 ,HIV viral load 5.67 log copies/mL. ID consulted cont Bactrim for PCP prophylaxis 5. Hyperlipidemia Trig 197-high, HDL 29-low. 6. DVT prophylaxis Lovenox SC daily.
[2017-12-18] MEDS: Divalproex 500 mg DR(BID formulation) PO SCH ×2 (08:19→16:38)
[2017-12-18] MEDS: Tmp-Smz 800 mg-160 mg DS Tab PO SCH (08:19)
[2017-12-18] MEDS: Enoxaparin 40 mg Syringe SC SCH (08:19)
[2017-12-18] MEDS: Emtricitabine-Tenofovir 200 mg-300 mg Tab PO SCH (08:19)
--- NOTE | 2017-12-18 11:06 | CP.PCM.CON ---
Past Patient History - Tetanus Immunizations Tetanus Immunization: Unknown - Past Medical History & Family History Past Medical History?: Yes - Past Social History Smoking Status: Never Smoked - CARDIAC Hx Cardiac Disorders: No - PULMONARY Hx Respiratory Disorders: No - NEUROLOGICAL Hx Neurological Disorder: Yes Hx Seizures: Yes - HEENT Hx HEENT Problems: No - RENAL Hx Chronic Kidney Disease: No - ENDOCRINE/METABOLIC Hx Endocrine Disorders: No - HEMATOLOGICAL/ONCOLOGICAL Hx Blood Disorders: Yes Hx AIDS: Yes Hx Human Immunodeficiency Virus (HIV): Yes - INTEGUMENTARY Hx Dermatological Problems: No - MUSCULOSKELETAL/RHEUMATOLOGICAL Hx Musculoskeletal Disorders: Yes Hx Falls: Yes - GASTROINTESTINAL Hx Gastrointestinal Disorders: No - GENITOURINARY/GYNECOLOGICAL Hx Genitourinary Disorders: No - PSYCHIATRIC Hx Psychophysiologic Disorder: No Hx Substance Use: No - SURGICAL HISTORY Hx Surgeries: No - ANESTHESIA Hx Anesthesia: No Hx Anesthesia Reactions: No Meds Home Medications: Home Medication List Medication Instructions Recorded Confirmed Type Divalproex [Depakote DR(*BID*)] 500 mg PO BID #60 tcp 12/05/17 Rx Escitalopram [Lexapro] 5 mg PO HS #30 tab 12/05/17 Rx Sulfamethoxazole/Trimethoprim 1 tab PO DAILY #30 tab 12/05/17 Rx [Bactrim DS Tab] Allergies/Adverse Reactions: Allergies Allergy/AdvReac Type Severity Reaction Status Date / Time No Known Allergies Allergy Verified 11/29/17 14:14 - Medications Medications: Current Medications Divalproex Sodium (Depakote Dr(*Bid*)) 500 mg PO BID [facility] Last Admin: 12/18/17 08:19 Dose: 500 mg Dolutegravir Sodium (Tivicay) 50 mg PO DAILY [facility] Last Admin: 12/18/17 08:19 Dose: 50 mg Emtricitabine/Tenofovir (Truvada 200 Mg-300 Mg) 1 tab PO DAILY [facility] Last Admin: 12/18/17 08:19 Dose: 1 tab Escitalopram Oxalate (Lexapro) 10 mg PO DAILY [facility] Last Admin: 12/18/17 08:19 Dose: 10 mg Ibuprofen (Motrin Tab) 400 mg PO Q6 PRN PRN Reason: Fever >100.4 F Last Admin: 12/12/17 10:14 Dose: 400 mg Memantine (Namenda) 10 mg PO DAILY [facility] Last Admin: 12/18/17 08:18 Dose: 10 mg Trimethoprim/Sulfamethoxazole (Bactrim Ds Tab) 1 tab PO DAILY [facility] PRN Reason: Protocol Last Admin: 12/18/17 08:19 Dose: 1 tab Results - Vital Signs Recent Vital Signs: Last Vital Signs Temp 97.5 F L 12/18/17 07:40 Pulse 66 12/18/17 07:40 Resp 19 12/18/17 07:40 BP 108/68 12/18/17 07:40 Pulse Ox 97 12/18/17 07:40 - Labs Result Diagrams: 12/15/17 06:15 12/15/17 06:15
--- NOTE | 2017-12-18 11:29 | CP.PCM.PN ---
Subjective - Date & Time of Evaluation Date of Evaluation: 12/18/17 Time of Evaluation: 11:00 - Subjective Subjective: Pt has no fever Ambulating around the unit Pt seem better cognitivelyl- he is now oriented to place and he was able to tell me his date of he follows simple commands denies headache no dizziness no CP no SOB no abd pain Objective - Vital Signs/Intake and Output Vital Signs (last 24 hours): Temp Pulse Resp BP Pulse Ox 97.5 F L 66 19 108/68 97 12/18/17 07:40 12/18/17 07:40 12/18/17 07:40 12/18/17 07:40 12/18/17 07:40 - Medications Medications: Current Medications Divalproex Sodium (Depakote Dr(*Bid*)) 500 mg PO BID [facility] Last Admin: 12/18/17 08:19 Dose: 500 mg Dolutegravir Sodium (Tivicay) 50 mg PO DAILY [facility] Last Admin: 12/18/17 08:19 Dose: 50 mg Emtricitabine/Tenofovir (Truvada 200 Mg-300 Mg) 1 tab PO DAILY [facility] Last Admin: 12/18/17 08:19 Dose: 1 tab Escitalopram Oxalate (Lexapro) 10 mg PO DAILY [facility] Last Admin: 12/18/17 08:19 Dose: 10 mg Ibuprofen (Motrin Tab) 400 mg PO Q6 PRN PRN Reason: Fever >100.4 F Last Admin: 12/12/17 10:14 Dose: 400 mg Memantine (Namenda) 10 mg PO DAILY [facility] Last Admin: 12/18/17 08:18 Dose: 10 mg Trimethoprim/Sulfamethoxazole (Bactrim Ds Tab) 1 tab PO DAILY [facility] PRN Reason: Protocol Last Admin: 12/18/17 08:19 Dose: 1 tab - Labs Labs: 12/15/17 06:15 12/15/17 06:15 PT 11.4 Seconds (9.8-13.1) 11/29/17 15:09 INR 1.0 (0.9-1.2) 11/29/17 15:09 APTT 31.2 Seconds (25.6-37.1) 11/29/17 15:09 - Constitutional Appears: No Acute Distress, ambulating around the unit - Head Exam Head Exam: NORMAL INSPECTION, NORMOCEPHALIC - Eye Exam Eye Exam: EOMI, Normal appearance Pupil Exam: NORMAL ACCOMODATION - ENT Exam ENT Exam: Mucous Membranes Moist, Normal External Ear Exam - Neck Exam Neck Exam: Full ROM. absent: Meningismus - Respiratory Exam Respiratory Exam: NORMAL BREATHING PATTERN. absent: Respiratory Distress - Cardiovascular Exam Cardiovascular Exam: REGULAR RHYTHM, +S1, +S2 - GI/Abdominal Exam GI & Abdominal Exam: Soft, Normal Bowel Sounds. absent: Tenderness - Extremities Exam Extremities Exam: Full ROM, Normal Capillary Refill. absent: Calf Tenderness - Back Exam Back Exam: Full ROM. 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 Apparently patient walked into a electric motor winder"s office on the day of admission asking to talk to one. Patient appeared confused so EMS was called and he was brought to ER. CT of the Head: Multiple tiny calcific densities scattered throughout the subarachnoid spaces consistent with prior exposure to cysticercosis. Marked dilatation 3rd and lateral ventricles with relatively normal-appearing 4th ventricle. 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 Low-attenuation white matter changes could represent some combination of end-stage gliosis related to prolonged hydrocephalus however concomitant chronic sequela of small vessel disease may contribute. 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 No evidence of acute intracranial hemorrhage. LP done in ER since patient was febrile and confused on admission and this showed no active infection, HSV negative. CD4 count 77. ID, Neuro and Neurosurgery consulted . 1. 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 MRA head and neck showed NO evidence of stenosis or occlusion. LP showed no meningitis , HSV negative , DILIA virus positive,CSF VDRL and Cryptococcus antigen-NEGATIVE. Influenza negative. Initially started on IV Vanco , Ceftriaxone and Acyclovir- now off abx Neurology, Neurosurgery, psychiatry and Infectious Disease on board. 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 Fever--resolved no other source of infection found 3. Hx of Seizures cont Depakote Neuro consulted 4. AIDS cont HAART- on Tivicay and TRuvada CD4 count 77 ,HIV viral load 5.67 log copies/mL. ID consulted cont Bactrim for PCP prophylaxis 5. Hyperlipidemia Trig 197-high, HDL 29-low. 6. DVT prophylaxis SCD for now. Lovenox SC daily.
[2017-12-19] MEDS: Divalproex 500 mg DR(BID formulation) PO SCH ×2 (08:59→17:41)
[2017-12-19] MEDS: Tmp-Smz 800 mg-160 mg DS Tab PO SCH (08:59)
--- NOTE | 2017-12-19 10:52 | CP.PCM.PN ---
Subjective - Date & Time of Evaluation Date of Evaluation: 12/19/17 Time of Evaluation: 10:30 - Subjective Subjective: Pt has no fever sl headache no dizziness denies CP no cough no SOB no abd pain no diarrhea Pt seem more oriented and less confused than previous Objective - Vital Signs/Intake and Output Vital Signs (last 24 hours): Temp Pulse Resp BP Pulse Ox 98.4 F 67 18 111/75 97 12/19/17 08:17 12/19/17 08:17 12/19/17 08:17 12/19/17 08:17 12/19/17 08:17 - Medications Medications: Current Medications Divalproex Sodium (Depakote Dr(*Bid*)) 500 mg PO BID [facility] Last Admin: 12/19/17 08:59 Dose: 500 mg Dolutegravir Sodium (Tivicay) 50 mg PO DAILY [facility] Last Admin: 12/19/17 08:59 Dose: 50 mg Emtricitabine/Tenofovir (Truvada 200 Mg-300 Mg) 1 tab PO DAILY [facility] Last Admin: 12/18/17 08:19 Dose: 1 tab Escitalopram Oxalate (Lexapro) 10 mg PO DAILY [facility] Last Admin: 12/19/17 08:59 Dose: 10 mg Ibuprofen (Motrin Tab) 400 mg PO Q6 PRN PRN Reason: Fever >100.4 F Last Admin: 12/12/17 10:14 Dose: 400 mg Memantine (Namenda) 10 mg PO DAILY [facility] Last Admin: 12/19/17 08:59 Dose: 10 mg Trimethoprim/Sulfamethoxazole (Bactrim Ds Tab) 1 tab PO DAILY [facility] PRN Reason: Protocol Last Admin: 12/19/17 08:59 Dose: 1 tab - Labs Labs: 12/15/17 06:15 12/15/17 06:15 PT 11.4 Seconds (9.8-13.1) 11/29/17 15:09 INR 1.0 (0.9-1.2) 11/29/17 15:09 APTT 31.2 Seconds (25.6-37.1) 11/29/17 15:09 - Constitutional Appears: No Acute Distress, ambulating around the unit - Head Exam Head Exam: NORMAL INSPECTION, NORMOCEPHALIC - Eye Exam Eye Exam: EOMI, Normal appearance Pupil Exam: NORMAL ACCOMODATION - ENT Exam ENT Exam: Mucous Membranes Moist, Normal External Ear Exam - Neck Exam Neck Exam: Full ROM. absent: Meningismus - Respiratory Exam Respiratory Exam: NORMAL BREATHING PATTERN. absent: Respiratory Distress - Cardiovascular Exam Cardiovascular Exam: REGULAR RHYTHM, +S1, +S2 - GI/Abdominal Exam GI & Abdominal Exam: Soft, Normal Bowel Sounds. absent: Tenderness - Extremities Exam Extremities Exam: Full ROM, Normal Capillary Refill. absent: Calf Tenderness - Back Exam Back Exam: Full ROM. 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 Apparently patient walked into a heating fixture tender"s office on the day of admission asking to talk to one. Patient appeared confused so EMS was called and he was brought to ER. CT of the Head: Multiple tiny calcific densities scattered throughout the subarachnoid spaces consistent with prior exposure to cysticercosis. Marked dilatation 3rd and lateral ventricles with relatively normal-appearing 4th ventricle. 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 Low-attenuation white matter changes could represent some combination of end-stage gliosis related to prolonged hydrocephalus however concomitant chronic sequela of small vessel disease may contribute. 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 No evidence of acute intracranial hemorrhage. LP done in ER since patient was febrile and confused on admission and this showed no active infection, HSV negative. CD4 count 77. ID, Neuro and Neurosurgery consulted . Today 3/2: Pt seem less confused, oriented to person and placed and even pointed to the board for the date 1. 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 MRA head and neck showed NO evidence of stenosis or occlusion. LP showed no meningitis , HSV negative , DILIA virus positive,CSF VDRL and Cryptococcus antigen-NEGATIVE. Influenza negative. Initially started on IV Vanco , Ceftriaxone and Acyclovir- now off abx Neurology, Neurosurgery, psychiatry and Infectious Disease on board. 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 Fever--resolved no other source of infection found 3. Hx of Seizures cont Depakote Neuro consulted 4. AIDS cont HAART- on Tivicay and TRuvada CD4 count 77 ,HIV viral load 5.67 log copies/mL. ID consulted cont Bactrim for PCP prophylaxis 5. Hyperlipidemia Trig 197-high, HDL 29-low. 6. DVT prophylaxis SCD for now. Lovenox SC daily.
[2017-12-19] MEDS: Emtricitabine-Tenofovir 200 mg-300 mg Tab PO SCH (13:39)
[2017-12-20] MEDS: Tmp-Smz 800 mg-160 mg DS Tab PO SCH (09:05)
[2017-12-20] MEDS: Divalproex 500 mg DR(BID formulation) PO SCH ×2 (09:05→16:22)
[2017-12-20] MEDS: Emtricitabine-Tenofovir 200 mg-300 mg Tab PO SCH (09:06)
--- NOTE | 2017-12-20 11:09 | CP.PCM.PN ---
Subjective - Date & Time of Evaluation Date of Evaluation: 12/20/17 Time of Evaluation: 11:00 - Subjective Subjective: Patient was seen and examined bedside. Lying in bed comfortably in NAD. States that is worried about his health but feels much improved . Hemodynamically stable, afebrile.No acute issues overnight. Knows he is in the hospital, knows the date , his date and age. States that has been in [place] since 1999 and moved here from [facility]. Has a sister that lives in [place], mother , sister , brother and son 9 17 years old live in [facility]. When asked about his future plans states that when he gets released from here will try to find a job and rent a room.States that can not go down to [place] because his sister does not want him there but will try to call and ask her if he can stay with her (does not remember the number) . Does not want to go back home in [facility] ,because will not be able to get treatment for HIV. Objective - Vital Signs/Intake and Output Vital Signs (last 24 hours): Temp Pulse Resp BP Pulse Ox 97.8 F 64 20 99/58 L 98 12/20/17 08:05 12/20/17 08:05 12/20/17 08:05 12/20/17 08:05 12/20/17 08:05 - Medications Medications: Current Medications Divalproex Sodium (Depakote Dr(*Bid*)) 500 mg PO BID [facility] Last Admin: 12/20/17 09:05 Dose: 500 mg Dolutegravir Sodium (Tivicay) 50 mg PO DAILY [facility] Last Admin: 12/20/17 09:06 Dose: 50 mg Emtricitabine/Tenofovir (Truvada 200 Mg-300 Mg) 1 tab PO DAILY [facility] Last Admin: 12/20/17 09:06 Dose: 1 tab Escitalopram Oxalate (Lexapro) 10 mg PO DAILY [facility] Last Admin: 12/20/17 09:06 Dose: 10 mg Ibuprofen (Motrin Tab) 400 mg PO Q6 PRN PRN Reason: Fever >100.4 F Last Admin: 12/19/17 11:44 Dose: 400 mg Memantine (Namenda) 10 mg PO DAILY [facility] Last Admin: 12/20/17 09:06 Dose: 10 mg Trimethoprim/Sulfamethoxazole (Bactrim Ds Tab) 1 tab PO DAILY [facility] PRN Reason: Protocol Last Admin: 12/20/17 09:05 Dose: 1 tab - Labs Labs: 12/15/17 06:15 12/15/17 06:15 PT 11.4 Seconds (9.8-13.1) 11/29/17 15:09 INR 1.0 (0.9-1.2) 11/29/17 15:09 APTT 31.2 Seconds (25.6-37.1) 11/29/17 15:09 - Constitutional Appears: Non-toxic, No Acute Distress - Head Exam Head Exam: ATRAUMATIC, NORMAL INSPECTION, NORMOCEPHALIC - Eye Exam Eye Exam: EOMI, Normal appearance, PERRL Pupil Exam: NORMAL ACCOMODATION - ENT Exam ENT Exam: Mucous Membranes Moist, Normal Exam - Neck Exam Neck Exam: Full ROM, Normal Inspection - Respiratory Exam Respiratory Exam: Clear to Ausculation Bilateral, NORMAL BREATHING PATTERN. absent: Rales, Rhonchi, Wheezes - Cardiovascular Exam Cardiovascular Exam: REGULAR RHYTHM, RRR, +S1, +S2. absent: JVD - GI/Abdominal Exam GI & Abdominal Exam: Soft, Normal Bowel Sounds. absent: Distended, Guarding, Tenderness, Rebound - Rectal Exam Rectal Exam: Deferred - Extremities Exam Extremities Exam: Full ROM, Normal Capillary Refill, Normal Inspection. absent : Calf Tenderness, Pedal Edema - Back Exam Back Exam: NORMAL INSPECTION - Neurological Exam Neurological Exam: Alert, Awake, CN II-XII Intact, Oriented x3 - Psychiatric Exam Psychiatric exam: Flat Affect - Skin Skin Exam: Dry, Intact, Normal Color, Warm Assessment and Plan - Assessment and Plan (Free Text) Assessment: 57 year old male with PMH AIDS and seizure disorder not compliant with medications, homeless , seen in ER several times with breakthrough seizures and AMS brought to ER via BLS for evaluation for AMS . Apparently patient walked into a marzipan maker"s office on the day of admission asking to talk to one. Patient appeared confused so EMS was called and he was brought to ER. CT of the Head: Multiple tiny calcific densities scattered throughout the subarachnoid spaces consistent with prior exposure to cysticercosis. Marked dilatation 3rd and lateral ventricles with relatively normal-appearing 4th ventricle. 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 Low-attenuation white matter changes could represent some combination of end-stage gliosis related to prolonged hydrocephalus however concomitant chronic sequela of small vessel disease may contribute. 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 No evidence of acute intracranial hemorrhage. LP done in ER since patient was febrile and confused on admission and this showed no active infection, HSV negative. CD4 count 77. ID, Neuro and Neurosurgery consulted . Today 12/20 AAOx3 Knows he is in the hospital, knows the date , his date and age. States that has been in [place] 1999 and moved here from [facility]. Has a sister that lives in [place], mother , sister , brother and son 9 17 years old live in [facility]. When asked about his future plans states that when he gets released from here will try to find a job and rent a room.States that can not go down to [place] because his sister does not want him there but will try to call and ask her if he can stay with her (does not remember the number) . Does not want to go back home in [facility] ,because will not be able to get treatment for HIV. 1. 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 MRA head and neck showed NO evidence of stenosis or occlusion. LP showed no meningitis , HSV negative , DILIA virus positive,CSF VDRL and Cryptococcus antigen-NEGATIVE. Influenza negative. Initially started on IV Vanco , Ceftriaxone and Acyclovir- now off abx Neurology, Neurosurgery, psychiatry and Infectious Disease on board. 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 Fever--resolved no other source of infection found 3. Hx of Seizures cont Depakote Neuro consulted 4. AIDS cont HAART- on Tivicay and TRuvada CD4 count 77 ,HIV viral load 5.67 log copies/mL. ID consulted cont Bactrim for PCP prophylaxis 5. Hyperlipidemia Trig 197-high, HDL 29-low. 6. DVT prophylaxis SCD for now. ambulating in unit
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
[2017-12-21] MEDS: Divalproex 500 mg DR(BID formulation) PO SCH ×2 (10:05→17:05)
[2017-12-21] MEDS: Tmp-Smz 800 mg-160 mg DS Tab PO SCH (10:05)
[2017-12-21] MEDS: Emtricitabine-Tenofovir 200 mg-300 mg Tab PO SCH (10:06)
[2017-12-22] MEDS: Tmp-Smz 800 mg-160 mg DS Tab PO SCH (09:12)
[2017-12-22] MEDS: Emtricitabine-Tenofovir 200 mg-300 mg Tab PO SCH (09:13)
[2017-12-22] MEDS: Divalproex 500 mg DR(BID formulation) PO SCH (09:13)
--- NOTE | 2017-12-22 09:47 | CP.PCM.PN ---
Subjective - Date & Time of Evaluation Date of Evaluation: 12/22/17 Time of Evaluation: 09:45 - Subjective Subjective: Mr. Mejía was seen and examined at the bedside. He is alert with episode of confusion without any agitation or restlessness noted. He denies any headache, dizziness, able to ambulate within his room in stable gait. He remains on telesitter for patient safety. There was no untoward events overnight. Objective - Vital Signs/Intake and Output Vital Signs (last 24 hours): Temp Pulse Resp BP Pulse Ox 98.5 F 68 20 92/58 L 96 12/22/17 07:56 12/22/17 07:56 12/22/17 07:56 12/22/17 07:56 12/22/17 07:56 - Medications Medications: Current Medications Divalproex Sodium (Depakote Dr(*Bid*)) 500 mg PO BID [facility] Last Admin: 12/22/17 09:13 Dose: 500 mg Dolutegravir Sodium (Tivicay) 50 mg PO DAILY [facility] Last Admin: 12/22/17 09:13 Dose: 50 mg Emtricitabine/Tenofovir (Truvada 200 Mg-300 Mg) 1 tab PO DAILY [facility] Last Admin: 12/22/17 09:13 Dose: 1 tab Escitalopram Oxalate (Lexapro) 10 mg PO DAILY [facility] Last Admin: 12/22/17 09:13 Dose: 10 mg Ibuprofen (Motrin Tab) 400 mg PO Q6 PRN PRN Reason: Fever >100.4 F Last Admin: 12/19/17 11:44 Dose: 400 mg Memantine (Namenda) 10 mg PO DAILY [facility] Last Admin: 12/22/17 09:13 Dose: 10 mg Trimethoprim/Sulfamethoxazole (Bactrim Ds Tab) 1 tab PO DAILY [facility] PRN Reason: Protocol Last Admin: 12/22/17 09:12 Dose: 1 tab - Labs Labs: 12/15/17 06:15 12/15/17 06:15 PT 11.4 Seconds (9.8-13.1) 11/29/17 15:09 INR 1.0 (0.9-1.2) 11/29/17 15:09 APTT 31.2 Seconds (25.6-37.1) 11/29/17 15:09 - Constitutional Appears: No Acute Distress - Head Exam Head Exam: NORMAL INSPECTION - Neurological Exam Neurological Exam: Awake Neuro motor strength exam: Left Upper Extremity: 4, Right Upper Extremity: 4, Left Lower Extremity: 4, Right Lower Extremity: 4 Additional comments: Neurological unchanged from previous examination. Assessment and Plan (1) Seizure Assessment & Plan: Case discussed with Dr. Torres, continue all current medical regimen including AED. Recommend to monitor valproic level Status: Chronic
--- NOTE | 2017-12-22 20:35 | CP.PCM.PN ---
Subjective - Date & Time of Evaluation Date of Evaluation: 12/22/17 Time of Evaluation: 12:00 - Subjective Subjective: Patient seen and examined . AAOX3 feeling better denies any pain or discomfort hemodynamically stable, afebrile Objective - Vital Signs/Intake and Output Vital Signs (last 24 hours): Temp Pulse Resp BP Pulse Ox 98.6 F 78 18 109/68 96 12/22/17 16:23 12/22/17 16:23 12/22/17 16:23 12/22/17 16:23 12/22/17 16:23 - Medications Medications: Current Medications Dolutegravir Sodium (Tivicay) 50 mg PO DAILY [facility] Last Admin: 12/22/17 09:13 Dose: 50 mg Emtricitabine/Tenofovir (Truvada 200 Mg-300 Mg) 1 tab PO DAILY [facility] Last Admin: 12/22/17 09:13 Dose: 1 tab Escitalopram Oxalate (Lexapro) 10 mg PO DAILY [facility] Last Admin: 12/22/17 09:13 Dose: 10 mg Ibuprofen (Motrin Tab) 400 mg PO Q6 PRN PRN Reason: Fever >100.4 F Last Admin: 12/19/17 11:44 Dose: 400 mg Memantine (Namenda) 10 mg PO DAILY [facility] Last Admin: 12/22/17 09:13 Dose: 10 mg Trimethoprim/Sulfamethoxazole (Bactrim Ds Tab) 1 tab PO DAILY [facility] PRN Reason: Protocol Last Admin: 12/22/17 09:12 Dose: 1 tab Valproate Sodium (Depakene Cap) 500 mg PO DAILY [facility] Last Admin: 12/22/17 20:28 Dose: 500 mg Valproate Sodium (Depakene Cap) 750 mg PO DAILY [facility] - Labs Labs: 12/15/17 06:15 12/15/17 06:15 PT 11.4 Seconds (9.8-13.1) 11/29/17 15:09 INR 1.0 (0.9-1.2) 11/29/17 15:09 APTT 31.2 Seconds (25.6-37.1) 11/29/17 15:09 - Constitutional Appears: Non-toxic, Toxic - Head Exam Head Exam: ATRAUMATIC, NORMAL INSPECTION, NORMOCEPHALIC - Eye Exam Eye Exam: EOMI, Normal appearance, PERRL Pupil Exam: NORMAL ACCOMODATION - ENT Exam ENT Exam: Mucous Membranes Moist, Normal Exam - Neck Exam Neck Exam: Normal Inspection - Respiratory Exam Respiratory Exam: Clear to Ausculation Bilateral, NORMAL BREATHING PATTERN. absent: Rales, Rhonchi, Wheezes - Cardiovascular Exam Cardiovascular Exam: REGULAR RHYTHM, RRR, +S1, +S2. absent: JVD - GI/Abdominal Exam GI & Abdominal Exam: Soft, Normal Bowel Sounds. absent: Distended, Guarding, Rebound - Rectal Exam Rectal Exam: Deferred - Extremities Exam Extremities Exam: Full ROM, Normal Capillary Refill, Normal Inspection. absent : Pedal Edema - Back Exam Back Exam: NORMAL INSPECTION - Neurological Exam Neurological Exam: Alert, CN II-XII Intact, Oriented x3 Additional comments: slow thought process - Psychiatric Exam Psychiatric exam: Flat Affect - Skin Skin Exam: Dry, Intact, Normal Color, Warm Assessment and Plan - Assessment and Plan (Free Text) Assessment: 57 year old male with PMH AIDS and seizure disorder not compliant with medications, homeless , seen in ER several times with breakthrough seizures and AMS brought to ER via BLS for evaluation for AMS . Apparently patient walked into a central station operator"s office on the day of admission asking to talk to one. Patient appeared confused so EMS was called and he was brought to ER. CT of the Head: Multiple tiny calcific densities scattered throughout the subarachnoid spaces consistent with prior exposure to cysticercosis. Marked dilatation 3rd and lateral ventricles with relatively normal-appearing 4th ventricle. 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 Low-attenuation white matter changes could represent some combination of end-stage gliosis related to prolonged hydrocephalus however concomitant chronic sequela of small vessel disease may contribute. 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 No evidence of acute intracranial hemorrhage. LP done in ER since patient was febrile and confused on admission and this showed no active infection, HSV negative. CD4 count 77. ID, Neuro and Neurosurgery consulted . 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 MRA head and neck showed NO evidence of stenosis or occlusion. LP showed no meningitis , HSV negative , DILIA virus positive,CSF VDRL and Cryptococcus antigen-NEGATIVE. Influenza negative. Initially started on IV Vanco , Ceftriaxone and Acyclovir- now off abx Neurology, Neurosurgery, psychiatry and Infectious Disease on board. 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 Fever--resolved no other source of infection found 3. Hx of Seizures cont Depakote Neuro consulted 4. AIDS cont HAART- on Tivicay and TRuvada CD4 count 77 ,HIV viral load 5.67 log copies/mL. ID consulted cont Bactrim for PCP prophylaxis 5. Hyperlipidemia Trig 197-high, HDL 29-low. 6. DVT prophylaxis SCD for now. ambulating in unit
[2017-12-23] MEDS: Tmp-Smz 800 mg-160 mg DS Tab PO SCH (08:54)
[2017-12-23] MEDS: Emtricitabine-Tenofovir 200 mg-300 mg Tab PO SCH (08:56)
--- NOTE | 2017-12-23 13:37 | CP.PCM.PN ---
Subjective - Date & Time of Evaluation Date of Evaluation: 12/23/17 Time of Evaluation: 12:30 - Subjective Subjective: Pt has no fever denies BARRETO ambulates in the unit no CP no SOB no abd pain Objective - Vital Signs/Intake and Output Vital Signs (last 24 hours): Temp Pulse Resp BP Pulse Ox 97.8 F 63 18 94/58 L 98 12/23/17 07:51 12/23/17 07:51 12/23/17 07:51 12/23/17 07:51 12/23/17 07:51 - Medications Medications: Current Medications Dolutegravir Sodium (Tivicay) 50 mg PO DAILY [facility] Last Admin: 12/23/17 08:56 Dose: 50 mg Emtricitabine/Tenofovir (Truvada 200 Mg-300 Mg) 1 tab PO DAILY [facility] Last Admin: 12/23/17 08:56 Dose: 1 tab Escitalopram Oxalate (Lexapro) 10 mg PO DAILY [facility] Last Admin: 12/23/17 08:56 Dose: 10 mg Ibuprofen (Motrin Tab) 400 mg PO Q6 PRN PRN Reason: Fever >100.4 F Last Admin: 12/19/17 11:44 Dose: 400 mg Memantine (Namenda) 10 mg PO DAILY [facility] Last Admin: 12/23/17 08:56 Dose: 10 mg Trimethoprim/Sulfamethoxazole (Bactrim Ds Tab) 1 tab PO DAILY [facility] PRN Reason: Protocol Last Admin: 12/23/17 08:54 Dose: 1 tab Valproate Sodium (Depakene Cap) 750 mg PO DAILY [facility] Last Admin: 12/23/17 08:55 Dose: 750 mg - Labs Labs: 12/15/17 06:15 12/15/17 06:15 PT 11.4 Seconds (9.8-13.1) 11/29/17 15:09 INR 1.0 (0.9-1.2) 11/29/17 15:09 APTT 31.2 Seconds (25.6-37.1) 11/29/17 15:09 - Constitutional Appears: No Acute Distress, ambulating around the unit - Head Exam Head Exam: NORMAL INSPECTION, NORMOCEPHALIC - Eye Exam Eye Exam: EOMI, Normal appearance Pupil Exam: NORMAL ACCOMODATION - ENT Exam ENT Exam: Mucous Membranes Moist, Normal External Ear Exam - Neck Exam Neck Exam: Full ROM. absent: Meningismus - Respiratory Exam Respiratory Exam: NORMAL BREATHING PATTERN. absent: Respiratory Distress - Cardiovascular Exam Cardiovascular Exam: REGULAR RHYTHM, +S1, +S2 - GI/Abdominal Exam GI & Abdominal Exam: Soft, Normal Bowel Sounds. absent: Tenderness - Extremities Exam Extremities Exam: Full ROM, Normal Capillary Refill. absent: Calf Tenderness - Back Exam Back Exam: Full ROM. absent: CVA tenderness (L), CVA tenderness (R) - Neurological Exam Neurological Exam: Alert, Awake, CN II-XII Intact, Normal Gait Additional comments: oriented to person , place , points to bulletin board for date follows simple commands - Psychiatric Exam Psychiatric exam: Flat Affect - Skin Skin Exam: Dry, Normal Color, Warm Assessment and Plan (1) Fever Status: Acute (2) Altered mental status Status: Acute (3) Seizure Status: Chronic (4) Brain parenchymal calcification Status: Chronic (5) DVT prophylaxis Status: Acute (6) AIDS (acquired immunodeficiency syndrome), CD4 <=200 Status: Acute (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 Apparently patient walked into a therapist"s office on the day of admission asking to talk to one. Patient appeared confused so EMS was called and he was brought to ER. CT of the Head: Multiple tiny calcific densities scattered throughout the subarachnoid spaces consistent with prior exposure to cysticercosis. Marked dilatation 3rd and lateral ventricles with relatively normal-appearing 4th ventricle. 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 Low-attenuation white matter changes could represent some combination of end-stage gliosis related to prolonged hydrocephalus however concomitant chronic sequela of small vessel disease may contribute. 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 No evidence of acute intracranial hemorrhage. LP done in ER since patient was febrile and confused on admission and this showed no active infection, HSV negative. CD4 count 77. ID, Neuro and Neurosurgery consulted . 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 MRA head and neck showed NO evidence of stenosis or occlusion. LP showed no meningitis , HSV negative , DILIA virus positive,CSF VDRL and Cryptococcus antigen-NEGATIVE. Influenza negative. Initially started on IV Vanco , Ceftriaxone and Acyclovir- now off abx Neurology, Neurosurgery, psychiatry and Infectious Disease on board. 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 Fever--resolved no other source of infection found 3. Hx of Seizures cont Depakote Neuro consulted 4. AIDS cont HAART- on Ti and TRuvada CD4 count 77 ,HIV viral load 5.67 log copies/mL. ID consulted cont Bactrim for PCP prophylaxis 5. Hyperlipidemia Trig 197-high, HDL 29-low. 6. DVT prophylaxis SCD for now. ambulating in unit
[2017-12-24] MEDS: Tmp-Smz 800 mg-160 mg DS Tab PO SCH (08:49)
[2017-12-24] MEDS: Emtricitabine-Tenofovir 200 mg-300 mg Tab PO SCH (08:49)
--- NOTE | 2017-12-24 11:29 | CP.PCM.PN ---
Subjective - Date & Time of Evaluation Date of Evaluation: 12/24/17 Time of Evaluation: 11:00 - Subjective Subjective: Pt's mental status is better, cognitively better he is now oriented x 3 answers questions appropriately walks around the unit [facility] consulted and had seen pt Pt has no fever no BARRETO denies Cough , no SOB no abd pain Objective - Vital Signs/Intake and Output Vital Signs (last 24 hours): Temp Pulse Resp BP Pulse Ox 98.0 F 67 18 95/54 L 97 12/24/17 07:53 12/24/17 07:53 12/24/17 07:53 12/24/17 07:53 12/24/17 07:53 - Medications Medications: Current Medications Dolutegravir Sodium (Tivicay) 50 mg PO DAILY [facility] Last Admin: 12/24/17 08:49 Dose: 50 mg Emtricitabine/Tenofovir (Truvada 200 Mg-300 Mg) 1 tab PO DAILY [facility] Last Admin: 12/24/17 08:49 Dose: 1 tab Escitalopram Oxalate (Lexapro) 10 mg PO DAILY [facility] Last Admin: 12/24/17 08:49 Dose: 10 mg Ibuprofen (Motrin Tab) 400 mg PO Q6 PRN PRN Reason: Fever >100.4 F Last Admin: 12/19/17 11:44 Dose: 400 mg Memantine (Namenda) 10 mg PO DAILY [facility] Last Admin: 12/24/17 08:49 Dose: 10 mg Trimethoprim/Sulfamethoxazole (Bactrim Ds Tab) 1 tab PO DAILY [facility] PRN Reason: Protocol Last Admin: 12/24/17 08:49 Dose: 1 tab Valproate Sodium (Depakene Cap) 750 mg PO DAILY [facility] Last Admin: 12/24/17 08:49 Dose: 750 mg - Labs Labs: 12/15/17 06:15 12/15/17 06:15 PT 11.4 Seconds (9.8-13.1) 11/29/17 15:09 INR 1.0 (0.9-1.2) 11/29/17 15:09 APTT 31.2 Seconds (25.6-37.1) 11/29/17 15:09 - Constitutional Appears: No Acute Distress, ambulating around the unit - Head Exam Head Exam: NORMAL INSPECTION, NORMOCEPHALIC - Eye Exam Eye Exam: EOMI, Normal appearance Pupil Exam: NORMAL ACCOMMODATION - ENT Exam ENT Exam: Mucous Membranes Moist, Normal External Ear Exam - Neck Exam Neck Exam: Full ROM. absent: Meningismus - Respiratory Exam Respiratory Exam: NORMAL BREATHING PATTERN. absent: Respiratory Distress - Cardiovascular Exam Cardiovascular Exam: REGULAR RHYTHM, +S1, +S2 - GI/Abdominal Exam GI & Abdominal Exam: Soft, Normal Bowel Sounds. absent: Tenderness - Extremities Exam Extremities Exam: Full ROM, Normal Capillary Refill. absent: Calf Tenderness - Back Exam Back Exam: Full ROM. absent: CVA tenderness (L), CVA tenderness (R) - Neurological Exam Neurological Exam: Alert, Awake, CN II-XII Intact, Normal Gait Additional comments: oriented to person , place , points to bulletin board for date follows simple commands - Psychiatric Exam Psychiatric exam: Flat Affect - Skin Skin Exam: Dry, Normal Color, Warm Assessment and Plan (1) Fever Status: Acute (2) Altered mental status Status: Acute (3) Seizure Status: Chronic (4) Brain parenchymal calcification Status: Chronic (5) DVT prophylaxis Status: Acute (6) AIDS (acquired immunodeficiency syndrome), CD4 <=200 Status: Acute (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 Apparently patient walked into a assembler garment form"s office on the day of admission asking to talk to one. Patient appeared confused so EMS was called and he was brought to ER. CT of the Head: Multiple tiny calcific densities scattered throughout the subarachnoid spaces consistent with prior exposure to cysticercosis. Marked dilatation 3rd and lateral ventricles with relatively normal-appearing 4th ventricle. 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 Low-attenuation white matter changes could represent some combination of end-stage gliosis related to prolonged hydrocephalus however concomitant chronic sequela of small vessel disease may contribute. 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 No evidence of acute intracranial hemorrhage. LP done in ER since patient was febrile and confused on admission and this showed no active infection, HSV negative. CD4 count 77. ID, Neuro and Neurosurgery consulted . Patient was started on Anti Retrovirals. Mental Status now better. He was referred to [facility] who will continue to ff up pt as outpatient. Plan to d/c pt however since he is homeless and there is a Snowstorm, we will keep pt for now. 1.Altered Mental Status -prob sec to AIDS Dementia with behavioral changes vs sec to TR[employer] pathology ( Hydrocephalus) due to PML Ct head showed Hydrocephalus/Prior parenchymal calcifications/Prior infection with cysticercosis. 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 MRA head and neck showed NO evidence of stenosis or occlusion. LP showed no meningitis , HSV negative , DILIA virus positive,CSF VDRL and Cryptococcus antigen-NEGATIVE. Influenza negative. Initially started on IV Vanco , Ceftriaxone and Acyclovir- now off abx Neurology, Neurosurgery, psychiatry and Infectious Disease on board. 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 Fever--resolved no other source of infection found 3. Hx of Seizures cont Depakote Neuro consulted 4. AIDS cont HAART- on Tivicay and uv CD4 count 77 ,HIV viral load 5.67 log copies/mL. ID consulted cont Bactrim for PCP prophylaxis [facility] consulted 5. Hyperlipidemia Trig 197-high, HDL 29-low. 6. DVT prophylaxis SCD for now. ambulating in unit
[2017-12-25] MEDS: Emtricitabine-Tenofovir 200 mg-300 mg Tab PO SCH (08:48)
[2017-12-25] MEDS: Tmp-Smz 800 mg-160 mg DS Tab PO SCH (08:48)
--- NOTE | 2017-12-25 13:43 | CP.PCM.PN ---
Subjective - Date & Time of Evaluation Date of Evaluation: 12/25/17 Time of Evaluation: 11:30 - Subjective Subjective: Patient seen and examined bedside. Feeling better. alert awake , oriented x 3 . hemnodynamicaly stable, afebrile No acute issues overnight Discussed with him discharge planning. Plans to try to find a job and work. When explained that the sister is willing to take care of him and support him, agrees that going back to [place] is in his best interest but is concerned that he has no means procuring a ticket . Discussed with SW and informed of the above. Objective - Vital Signs/Intake and Output Vital Signs (last 24 hours): Temp Pulse Resp BP Pulse Ox 97.9 F 80 20 99/59 L 98 12/25/17 07:44 12/25/17 07:44 12/25/17 07:44 12/25/17 07:44 12/25/17 07:44 - Medications Medications: Current Medications Dolutegravir Sodium (Tivicay) 50 mg PO DAILY [facility] Last Admin: 12/25/17 08:48 Dose: 50 mg Emtricitabine/Tenofovir (Truvada 200 Mg-300 Mg) 1 tab PO DAILY [facility] Last Admin: 12/25/17 08:48 Dose: 1 tab Escitalopram Oxalate (Lexapro) 10 mg PO DAILY [facility] Last Admin: 12/25/17 08:48 Dose: 10 mg Ibuprofen (Motrin Tab) 400 mg PO Q6 PRN PRN Reason: Fever >100.4 F Last Admin: 12/19/17 11:44 Dose: 400 mg Memantine (Namenda) 10 mg PO DAILY [facility] Last Admin: 12/25/17 08:48 Dose: 10 mg Trimethoprim/Sulfamethoxazole (Bactrim Ds Tab) 1 tab PO DAILY [facility] PRN Reason: Protocol Last Admin: 12/25/17 08:48 Dose: 1 tab Valproate Sodium (Depakene Cap) 750 mg PO DAILY [facility] Last Admin: 12/25/17 08:48 Dose: 750 mg - Labs Labs: 12/15/17 06:15 12/15/17 06:15 PT 11.4 Seconds (9.8-13.1) 11/29/17 15:09 INR 1.0 (0.9-1.2) 11/29/17 15:09 APTT 31.2 Seconds (25.6-37.1) 11/29/17 15:09 - Constitutional Appears: Non-toxic, No Acute Distress - Head Exam Head Exam: ATRAUMATIC, NORMAL INSPECTION, NORMOCEPHALIC - Eye Exam Eye Exam: EOMI, Normal appearance, PERRL Pupil Exam: NORMAL ACCOMODATION - ENT Exam ENT Exam: Mucous Membranes Moist, Normal Exam - Neck Exam Neck Exam: Full ROM, Normal Inspection - Respiratory Exam Respiratory Exam: Clear to Ausculation Bilateral, NORMAL BREATHING PATTERN. absent: Rales, Rhonchi, Wheezes - Cardiovascular Exam Cardiovascular Exam: REGULAR RHYTHM, RRR, +S1, +S2. absent: JVD - GI/Abdominal Exam GI & Abdominal Exam: Soft, Normal Bowel Sounds. absent: Distended, Guarding, Tenderness, Rebound - Rectal Exam Rectal Exam: Deferred - Extremities Exam Extremities Exam: Full ROM, Normal Capillary Refill, Normal Inspection - Back Exam Back Exam: NORMAL INSPECTION - Neurological Exam Neurological Exam: Alert, Awake, CN II-XII Intact, Oriented x3 - Psychiatric Exam Psychiatric exam: Normal Affect, Normal Mood - Skin Skin Exam: Dry, Intact, Normal Color, Warm Assessment and Plan - Assessment and Plan (Free Text) Assessment: 57 year old male with PMH AIDS and seizure disorder not compliant with medications, homeless , seen in ER several times with breakthrough seizures and AMS brought to ER via BLS for evaluation for AMS . Apparently patient walked into a lottery clerk"s office on the day of admission asking to talk to one. Patient appeared confused so EMS was called and he was brought to ER. CT of the Head: Multiple tiny calcific densities scattered throughout the subarachnoid spaces consistent with prior exposure to cysticercosis. Marked dilatation 3rd and lateral ventricles with relatively normal-appearing 4th ventricle. 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 Low-attenuation white matter changes could represent some combination of end-stage gliosis related to prolonged hydrocephalus however concomitant chronic sequela of small vessel disease may contribute. 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 No evidence of acute intracranial hemorrhage. LP done in ER since patient was febrile and confused on admission and this showed no active infection, HSV negative. CD4 count 77. ID, Neuro and Neurosurgery consulted . Patient was started on Anti Retrovirals. Mental Status now better. He was referred to [facility] who will continue to ff up pt as outpatient. Plan to d/c pt .will try to get in touch with his sister to coordinate his discharge if possible . 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 MRA head and neck showed NO evidence of stenosis or occlusion. LP showed no meningitis , HSV negative , DILIA virus positive,CSF VDRL and Cryptococcus antigen-NEGATIVE. Influenza negative. Initially started on IV Vanco , Ceftriaxone and Acyclovir- now off abx Neurology, Neurosurgery, psychiatry and Infectious Disease on board. 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 Fever--resolved no other source of infection found 3. Hx of Seizures cont Depakote Neuro consulted 4. AIDS cont HAART- on Tivicay and TRuvada CD4 count 77 ,HIV viral load 5.67 log copies/mL. ID consulted cont Bactrim for PCP prophylaxis [facility] consulted 5. Hyperlipidemia Trig 197-high, HDL 29-low. 6. DVT prophylaxis SCD for now. ambulating in unit
[2017-12-26 07:57] VITALS: TEMP 98.2
[2017-12-26] MEDS: Tmp-Smz 800 mg-160 mg DS Tab PO SCH (08:35)
[2017-12-26] MEDS: Emtricitabine-Tenofovir 200 mg-300 mg Tab PO SCH (08:36)
--- NOTE | 2017-12-26 11:52 | CP.PCM.PN ---
Subjective - Date & Time of Evaluation Date of Evaluation: 12/26/17 Time of Evaluation: 11:51 - Subjective Subjective: Mr. Mejía was seen and examined at the bedside. He is more alert, oriented. He states of headache with pain scale of 1/10, non-radiating.. He denies any blurred vision, diplopia, nausea, or vomiting. He is able to follow simple commands. The valproic level is 44.8. He is no longer on a telesitter.There was no untoward events overnight. Objective - Vital Signs/Intake and Output Vital Signs (last 24 hours): Temp Pulse Resp BP Pulse Ox 98.2 F 84 20 99/50 L 98 12/26/17 07:56 12/26/17 07:56 12/26/17 07:56 12/26/17 07:56 12/26/17 07:56 - Medications Medications: Current Medications Divalproex Sodium (Depakote Dr(*Bid*)) 750 mg PO Q12 [facility] Dolutegravir Sodium (Tivicay) 50 mg PO DAILY [facility] Last Admin: 12/26/17 08:36 Dose: 50 mg Emtricitabine/Tenofovir (Truvada 200 Mg-300 Mg) 1 tab PO DAILY [facility] Last Admin: 12/26/17 08:36 Dose: 1 tab Escitalopram Oxalate (Lexapro) 10 mg PO DAILY [facility] Last Admin: 12/26/17 08:36 Dose: 10 mg Ibuprofen (Motrin Tab) 400 mg PO Q6 PRN PRN Reason: Fever >100.4 F Last Admin: 12/19/17 11:44 Dose: 400 mg Memantine (Namenda) 10 mg PO DAILY [facility] Last Admin: 12/26/17 08:35 Dose: 10 mg Trimethoprim/Sulfamethoxazole (Bactrim Ds Tab) 1 tab PO DAILY [facility] PRN Reason: Protocol Last Admin: 12/26/17 08:35 Dose: 1 tab - Labs Labs: 12/15/17 06:15 12/15/17 06:15 PT 11.4 Seconds (9.8-13.1) 11/29/17 15:09 INR 1.0 (0.9-1.2) 11/29/17 15:09 APTT 31.2 Seconds (25.6-37.1) 11/29/17 15:09 - Constitutional Appears: No Acute Distress - Head Exam Head Exam: NORMAL INSPECTION - Neurological Exam Neurological Exam: Alert, Awake, Oriented x3 Neuro motor strength exam: Left Upper Extremity: 5, Right Upper Extremity: 5, Left Lower Extremity: 5, Right Lower Extremity: 5 Additional comments: Neurological improved from previous examination. Assessment and Plan (1) Seizure Assessment & Plan: Case discussed with Dr. Torres, continue all current medical regimen including AED. Since patient is receiving depakote, it will also help with his headache. Recommend monitoring of valproic level. Status: Chronic
--- NOTE | 2017-12-26 14:18 | CP.PCM.DIS ---
Provider - Provider Date of Admission: 11/30/17 18:22 Attending physician: Yue Sanchez DO Primary care physician: BENITA FAMILY PROVIDER Consults: ID consult neurology consult psychiatry consult neurosurgery consult ELLY jaime Time Spent in preparation of Discharge (in minutes): 20 Hospital Course - Lab Results Lab Results: Micro Results 12/02/17 05:30 Blood Blood Culture - Final NO GROWTH AFTER 5 DAYS 12/02/17 05:30 Blood Gram Stain - Final TEST NOT PERFORMED 12/02/17 05:30 Blood Blood Culture - Final NO GROWTH AFTER 5 DAYS 12/02/17 05:30 Blood Gram Stain - Final TEST NOT PERFORMED 11/29/17 18:00 Cerebral Spinal Fluid Gram Stain - Final 11/29/17 18:00 Cerebral Spinal Fluid CSF Culture - Final No growth. 11/30/17 19:30 Blood Blood Culture - Final NO GROWTH AFTER 5 DAYS 11/30/17 19:30 Blood Gram Stain - Final TEST NOT PERFORMED 11/30/17 19:00 Blood Blood Culture - Final NO GROWTH AFTER 5 DAYS 11/30/17 19:00 Blood Gram Stain - Final TEST NOT PERFORMED 11/29/17 15:18 Blood-Venous Blood Culture - Final NO GROWTH AFTER 5 DAYS 11/29/17 15:18 Blood-Venous Gram Stain - Final TEST NOT PERFORMED 11/29/17 15:00 Blood-Venous Blood Culture - Final NO GROWTH AFTER 5 DAYS 11/29/17 15:00 Blood-Venous Gram Stain - Final TEST NOT PERFORMED 11/29/17 18:30 Cerebral Spinal Fluid Gram Stain - Final 11/29/17 18:30 Cerebral Spinal Fluid CSF Culture - Final No growth. 11/29/17 19:19 Urine,Clean Catch Urine Culture - Final 10-50,000 CFU/ML. MULTIPLE SPECIES. PROBABLE CONTAMINATION. Most Recent Lab Values WBC 4.4 K/uL (4.8-10.8) L 12/15/17 06:15 RBC 4.07 Mil/uL (4.40-5.90) L 12/15/17 06:15 Hgb 12.7 g/dL (12.0-18.0) 12/15/17 06:15 Hct 38.3 % (35.0-51.0) 12/15/17 06:15 MCV 94.0 fl (80.0-94.0) 12/15/17 06:15 MCH 31.2 pg (27.0-31.0) H 12/15/17 06:15 MCHC 33.1 g/dL (33.0-37.0) 12/15/17 06:15 RDW 13.2 % (11.5-14.5) 12/15/17 06:15 Plt Count 143 K/uL (130-400) 12/15/17 06:15 MPV 8.8 fl (7.2-11.7) 12/01/17 06:00 Neut % (Auto) 41.4 % (50.0-75.0) L 12/01/17 06:00 Lymph % (Auto) 40.1 % (20.0-40.0) H 12/01/17 06:00 Falls % (Auto) 13.0 % (0.0-10.0) H 12/01/17 06:00 Eos % (Auto) 5.1 % (0.0-4.0) H 12/01/17 06:00 Baso % (Auto) 0.4 % (0.0-2.0) 12/01/17 06:00 Neut # (Auto) 1.4 K/uL (1.8-7.0) L 12/01/17 06:00 Lymph # (Auto) 1.3 K/uL (1.0-4.3) 12/01/17 06:00 Falls # (Auto) 0.4 K/uL (0.0-0.8) 12/01/17 06:00 Eos # (Auto) 0.2 K/uL (0.0-0.7) 12/01/17 06:00 Baso # (Auto) 0.0 K/uL (0.0-0.2) 12/01/17 06:00 PT 11.4 Seconds (9.8-13.1) 11/29/17 15:09 INR 1.0 (0.9-1.2) 11/29/17 15:09 APTT 31.2 Seconds (25.6-37.1) 11/29/17 15:09 Sodium 143 mmol/l (132-148) 12/15/17 06:15 Potassium 4.6 MMOL/L (3.6-5.0) 12/15/17 06:15 Chloride 97 mmol/L (98-107) L 12/15/17 06:15 Carbon Dioxide 32 mmol/L (22-30) H 12/15/17 06:15 Anion Gap 19 (10-20) 12/15/17 06:15 BUN 19 mg/dl (9-20) 12/15/17 06:15 Creatinine 1.3 mg/dl (0.8-1.5) 12/15/17 06:15 Est GFR ( Amer) > 60 12/15/17 06:15 Est GFR (Non-Af Amer) 57 12/15/17 06:15 Random Glucose 83 mg/dL (75-110) 12/15/17 06:15 Lactic Acid 0.9 MMOL/L (0.7-2.1) 11/29/17 15:09 Calcium 9.2 mg/dL (8.4-10.2) 12/15/17 06:15 Total Bilirubin 0.4 mg/dl (0.2-1.3) 12/15/17 06:15 AST 43 U/L (17-59) 12/15/17 06:15 ALT 45 U/L (21-72) 12/15/17 06:15 Alkaline Phosphatase 71 U/L (38-126) 12/15/17 06:15 Ammonia 28 umo/L (16-60) 11/29/17 15:57 Troponin I < 0.0120 ng/mL (0.00-0.120) 11/29/17 17:10 Total Protein 8.2 G/DL (6.3-8.2) 12/15/17 06:15 Albumin 3.9 g/dL (3.5-5.0) 12/15/17 06:15 Globulin 4.3 gm/dL (2.2-3.9) H 12/15/17 06:15 Albumin/Globulin Ratio 0.9 (1.0-2.1) L 12/15/17 06:15 Triglycerides 197 mg/DL (0-149) H 12/04/17 05:50 Cholesterol 114 mg/dL (0-199) 12/04/17 05:50 LDL Cholesterol Direct 35 mg/dL (0-129) 12/04/17 05:50 HDL Cholesterol 29 MG/DL (30-70) L 12/04/17 05:50 Procalcitonin < 0.05 NG/ML (0.19-0.49) L 11/30/17 19:00 Urine Color Yellow (YELLOW) 11/30/17 19:37 Urine Clarity Clear (Clear) 11/30/17 19:37 Urine pH 5.0 (5.0-8.0) 11/30/17 19:37 Ur Specific [place] 1.028 (1.003-1.030) 11/30/17 19:37 Urine Protein 30 mg/dL (NEGATIVE) 11/30/17 19:37 Urine Glucose (UA) Neg mg/dL (Normal) 11/30/17 19:37 Urine Ketones Negative mg/dL (NEGATIVE) 11/30/17 19:37 Urine Blood Negative (NEGATIVE) 11/30/17 19:37 Urine Nitrate Negative (NEGATIVE) 11/30/17 19:37 Urine Bilirubin Negative (NEGATIVE) 11/30/17 19:37 Urine Urobilinogen 0.2-1.0 mg/dL (0.2-1.0) 11/30/17 19:37 Ur Leukocyte Esterase Neg Florinda/uL (Negative) 11/30/17 19:37 Urine RBC (Auto) 3 /hpf (0-3) 11/30/17 19:37 Urine Microscopic WBC 1 /hpf (0-5) 11/30/17 19:37 Ur Squamous Epith Cells 2 /hpf (0-5) 11/29/17 19:45 Urine Bacteria Rare (<OCC) 11/29/17 19:45 Hyaline Casts 0-2 /hpf (0-2) 11/29/17 19:45 Fluid Type Spinal fluid 11/29/17 18:30 CSF Volume 2 mL (0-1) H 11/29/17 18:30 CSF Appearance Clear/colorless (CLEAR) 11/29/17 18:30 CSF WBC 3.0 /mm3 (0.0-5.0) 11/29/17 18:30 CSF RBC 1.0 /mm3 (0.0-0.0) H 11/29/17 18:30 CSF Total Cell Counted 3 (0-0) H 11/29/17 18:30 CSF Neutrophils 0 % (0-0) 11/29/17 18:30 CSF Lymphocytes 3.0 % (0-0) H 11/29/17 18:30 CSF Monos/Macrophages 0 % (0-0) 11/29/17 18:30 CSF Comment 11/29/17 18:30 CSF Glucose 48 mg/dL (40-70) 11/29/17 18:30 CSF Total Protein 78.0 mg/dL (12-60) H 11/29/17 18:30 CSF VDRL Nonreactive (Nonreactive) 11/29/17 18:30 CSF Cryptococcus Ag Negative (NEGATIVE) 11/29/17 18:30 CSF Toxo. gondii IgG 2.56 H 11/29/17 18:30 Vancomycin Trough 13.0 ug/mL (5.0-10.0) H 12/01/17 20:32 Urine Opiates Screen Negative (NEGATIVE) 11/29/17 19:19 Urine Methadone Screen Negative (NEGATIVE) 11/29/17 19:19 Ur Barbiturates Screen Negative (NEGATIVE) 11/29/17 19:19 Valproic Acid 44.8 ug/mL (50.0-100.0) L 12/22/17 10:00 Ur Phencyclidine Scrn Negative (NEGATIVE) 11/29/17 19:19 Ur Amphetamines Screen Negative (NEGATIVE) 11/29/17 19:19 U Benzodiazepines Scrn Negative (NEGATIVE) 11/29/17 19:19 U Oth Cocaine Metabols Negative (NEGATIVE) 11/29/17 19:19 U Cannabinoids Screen Negative (NEGATIVE) 11/29/17 19:19 Alcohol, Quantitative < 10 mg/dl (0-10) 11/29/17 17:10 Absolute Lymphs (Flow) 1155 Cells/mcL (850-3900) 12/01/17 06:00 % CD4 Cells 7 Percent (30-61) L 12/01/17 06:00 Absolute CD4 Count 77 Cells/mcL (490-1740) L 12/01/17 06:00 T-Help/Suppress Ratio 0.11 Ratio (0.86-5.00) L 12/01/17 06:00 % CD8 Cells 60 Percent (12-42) H 12/01/17 06:00 Absolute CD8 Count 695 Cells/mcL (180-1170) 12/01/17 06:00 HSV Source Description Csf 11/29/17 18:30 HSV I DNA PCR Not detected (Not Detected) 11/29/17 18:30 HSV II DNA PCR Not detected (Not Detected) 11/29/17 18:30 HIV-1 RNA Qnt (RT-PCR) 5.67 (<1.30) H 11/29/17 20:20 HIV-1 Genotyping Detected H 12/03/17 19:43 Influenza Typ A,B (EIA) Negative for flu a/b (NEGATIVE) 11/30/17 19:15 BK Virus Spec Source Plasma 12/01/17 06:00 BK Virus DNA Qual PCR Not detected (Not Detected) 12/01/17 06:00 DILIA Virus DNA (PCR) Detected (Not Detected) H 12/01/17 06:00 - Hospital Course Hospital Course: 57 year old male with PMH AIDS and seizure disorder not compliant with medications, homeless , seen in ER several times with breakthrough seizures and AMS brought to ER via BLS for evaluation for AMS . 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 Patient appeared confused so EMS was called and he was brought to ER. CT of the Head: Multiple tiny calcific densities scattered throughout the subarachnoid spaces consistent with prior exposure to cysticercosis. Marked dilatation 3rd and lateral ventricles with relatively normal-appearing 4th ventricle. 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 Low-attenuation white matter changes could represent some combination of end-stage gliosis related to prolonged hydrocephalus however concomitant chronic sequela of small vessel disease may contribute. 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 No evidence of acute intracranial hemorrhage. LP done in ER since patient was febrile and confused on admission and this showed no active infection, HSV negative. CD4 count 77. ID, Neuro and Neurosurgery consulted . Patient was started on Anti Retrovirals.Initially he was having episodes of cobnfusion and alteration of mental status. Mental Status now better. He was referred to [facility] who will continue to ff up pt as outpatient.Started on Depakote po as per neuro recommendations for seizure prevantions. psychiatry was consulted and recommended namenda and lexapro Patient currently is awake alert oriented x 3 . Knows he is admitted to hospital and why and explains what he will do upon discharge. Initially he will go to the nursing home to have place to stay and show up at work office to try to get a job . If his sister is willing to take him back, down in [place] he will try to get down there to be close to family to have more help and support. HE is hemodynamically stable, afebrile AAOx3. provided all informatiomn about [facility]. provided clothes by SW Multiple attempts made to get in touch with sister again. Message sent to her cell number and informed about patient being discharged to nursing home today 1.Altered Mental Status -prob sec to AIDS Dementia with behavioral changes vs sec to [employer] pathology ( Hydrocephalus) due to PML--- resolved At present AAOX3 Ct head showed Hydrocephalus/Prior parenchymal calcifications/Prior infection with cysticercosis. 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 MRA head and neck showed NO evidence of stenosis or occlusion. LP showed no meningitis , HSV negative , DILIA virus positive,CSF VDRL and Cryptococcus antigen-NEGATIVE. Influenza negative. Initially started on IV Vanco , Ceftriaxone and Acyclovir- now off abx Neurology, Neurosurgery, psychiatry and Infectious Disease on board. 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 Hx of Seizures cont Depakote Neuro consulted 4. AIDS cont HAART- on [place] and [place] CD4 count 77 ,HIV viral load 5.67 log copies/mL. ID consulted cont Bactrim for PCP prophylaxis [facility] consulted. To follow up as outpatient for treatment. SW to provide information before discharge 4. Hyperlipidemia Trig 197-high, HDL 29-low. 6. DVT prophylaxis SCD for now. ambulating in unit Discharge Exam - Head Exam Head Exam: ATRAUMATIC, NORMAL INSPECTION, NORMOCEPHALIC - Eye Exam Eye Exam: EOMI, PERRL Pupil Exam: NORMAL ACCOMODATION - ENT Exam ENT Exam: Mucous Membranes Moist, Normal Exam - Neck Exam Neck exam: Full Rom, Normal Inspection - Respiratory Exam Respiratory Exam: Clear to PA & Lateral, NORMAL BREATHING PATTERN. absent: Rales, Rhonchi, Wheezes, Respiratory Distress - Cardiovascular Exam Cardiovascular Exam: REGULAR RHYTHM, RRR, +S1, +S2. absent: JVD - GI/Abdominal Exam GI & Abdominal Exam: Normal Bowel Sounds, Soft. absent: Distended, Guarding, Rebound, Tenderness - Rectal Exam Rectal Exam: Deferred - Extremities Exam Extremities exam: normal capillary refill, normal inspection, pedal pulses present - Back Exam Back exam: NORMAL INSPECTION - Neurological Exam Neurological exam: Alert, CN II-XII Intact, Oriented x3 - Psychiatric Exam Psychiatric exam: Flat Affect - Skin Skin Exam: Dry, Normal Color, Warm Discharge Plan - Discharge Medications Prescriptions: Divalproex [Depakote DR(*BID*)] 500 mg PO BID #60 tcp Escitalopram [Lexapro] 5 mg PO HS #30 tab Sulfamethoxazole/Trimethoprim [Bactrim DS Tab] 1 tab PO DAILY #30 tab - Follow Up Plan Condition: STABLE Disposition: HOME/ ROUTINE Patient education suggested?: Yes Instructions: Altered Mental Status (GEN), HIV/AIDS (DC) Additional Instructions: [facility]: Linen Room Custodian Ana [phone] Referrals: [facility] [Outside]
[2017-12-26 15:50] VITALS: BP 108/67; PULSE 69; RESP 18; O2SAT 97
[2017-12-26] MEDS ORDERED: Divalproex 250 mg DR(BID formulation) PO SCH (21:00)
== END 2017-12-26 16:45 | disposition home or self-care (01) | DRG 712 ==
LOC: H.ER 14:11 → H.ERHOLD 18:50 → H.MEDSURG1 20:54 → OBSVTOIN 11-30 18:22 → H.MEDSURG1 12-04 17:36
PROVIDERS: ADMIT Student in an Organized Health Care Education/Training Program; ATTEND Student in an Organized Health Care Education/Training Program
PROC: 009U3ZX Drainage of Spinal Canal, Percutaneous Approach, Diagnostic (ICD-10-PCS; principal; 2017-11-29)
DX: B20 Human immunodeficiency virus [HIV] disease (principal); G93.89 Other specified disorders of brain; F02.81 Dementia in other diseases classified elsewhere, unspecified severity, with behavioral disturbance; G93.49 Other encephalopathy; G91.1 Obstructive hydrocephalus; B69.0 Cysticercosis of central nervous system; G40.409 Other generalized epilepsy and epileptic syndromes, not intractable, without status epilepticus; Z59.0 Homelessness; Z91.14 Patient's other noncompliance with medication regimen; F32.9 Major depressive disorder, single episode, unspecified; E78.5 Hyperlipidemia, unspecified